=== PATIENT | female | born 1935 | race Caucasian/White ===

== ENCOUNTER 2018-10-21 18:00 | Inpatient (IN) ==
--- NOTE | 2018-10-21 18:19 | Emergency Department Note ---
Disposition Clinical Impression: Iliopsoas abscess on left Disposition: Admitted As Inpatient Condition: Undetermined Referrals: NONE,PCP [Primary Care Provider] - Forms: ED Satisfaction Letter Time of Disposition: 19:40 Lower Extremity Injury HPI - General Chief Complaint: ED Extremity Problem,Nontraumatic Stated Complaint: Groin Pain Time Seen by Provider: 10/21/18 18:06 Source: patient, EMS Mode of arrival: EMS Limitations: no limitations Nursing Notes Reviewed: Yes Vital Signs Reviewed: Yes - History of Present Illness HPI Narrative: 83-year-old female arrives to the emergency department complaining of left groin pain. The patient states she was playing cards and twisted a certain way and felt immediate pain in the left groin. The patient states she had anything like this before. She took 2 Tylenol and a tramadol. The patient states that this has not help. The patient is complaining of left groin pain. She has no hernia in this area. She denies any dysuria. She denies any traumatic injury. The patient is resting comfortably on evaluation in the room. She has no other complaints at this time going numbness, tingling, back pain, abdominal pain. - Related Data Home Medications Medication Instructions Recorded Confirmed Aspirin 81 mg PO DAILY 03/19/17 10/21/18 Proair Hfa 2 puff IH Q4H PRN 03/19/17 10/21/18 Tramadol HCl 50 mg PO BID 03/19/17 10/21/18 Budesonide/Formoterol 80/4.5 2 puff IH BID 10/21/18 10/21/18 [Symbicort 80/4.5] Umeclidinium [place] [Incruse 1 puff IH DAILY 10/21/18 10/21/18 Ellipta] Allergies Allergy/AdvReac Type Severity Reaction Status Date / Time Penicillins [PCN] Allergy Rash Verified 03/19/17 14:00 All systems ED: reviewed and negative except as stated. Constitutional: Denies: fever, chills, weakness ENT ED: Denies: dysphagia Cardiovascular: Denies: chest pain Respiratory: Denies: dyspnea Gastrointestinal: Denies: abdominal pain, nausea, vomiting Genitourinary: Denies: urgency, dysuria, frequency, hematuria Musculoskeletal: Reports: arthralgia. Denies: back pain, neck pain, myalgia Integumentary: Denies: rash Neurological: Denies: headache Past Medical History - Past Medical History Attestation: Yes The following information was validated with the patient. Source: patient, old records reviewed Medical history: Reports: coronary artery disease, diabetes, GERD, hypertension, other Surgical history: Reports: angioplasty/stent, appendectomy, Psychiatric history: Reports: no psych history - Social History Smoking Status: Never smoker Smokeless Tobacco Status: No Alcohol use: Reports: none Drug use: Reports: none Physical Exam - General Limitations: no limitations General appearance: alert, in no apparent distress - Head Head exam: atraumatic, normocephalic, normal inspection - Eye Eye exam: Present: normal appearance, PERRL, EOMI - ENT ENT exam: normal exam, normal oropharynx, mucous membranes moist - Neck Neck exam: Present: normal inspection, full ROM, trachea midline - Chest Chest inspection: Present: normal inspection, symmetric chest wall rise - Respiratory Respiratory exam: Present: normal lung sounds bilaterally - Cardiovascular Cardiovascular exam: Present: regular rate, normal rhythm, normal heart sounds - Abdominal Exam Abdominal exam: Present: soft, Non-Tender. Absent: tenderness, distention, guarding, rebound, rigidity, Cat's sign, Rovsing's sign - Extremities Exam Extremities exam: Present: normal inspection, full ROM, tenderness (Left anterior inguinal region without hernia). Absent: pedal edema - Neurological Exam Neurological exam: Present: alert, oriented X3 - Skin Skin exam: Present: warm, dry, intact, normal color. Absent: erythema Course Vital Signs Temperature 100.5 F H 10/21/18 18:09 Pulse Rate 96 10/21/18 18:09 Respiratory Rate 18 10/21/18 18:09 Blood Pressure 148/70 10/21/18 18:09 O2 Sat by Pulse Oximetry 98 10/21/18 18:09 Temperature 100.2 F H 10/21/18 18:13 Pulse Rate 96 10/21/18 18:09 Respiratory Rate 18 10/21/18 18:09 Blood Pressure 148/70 10/21/18 18:09 O2 Sat by Pulse Oximetry 98 10/21/18 18:09 Oxygen Delivery Oxygen Delivery Room Air Extremity Injury, Lower - MDM Narrative Medical decision making narrative: Patient's workup in the emergency department demonstrates findings concerning for fluid within the left iliopsoas. Given the patient's pain combined with the fever I am concerned about an abscess within the iliopsoas muscle. Labs were obtained at that time including a CRP, ESR. Blood cultures were obtained. The patient was started on meropenem as the patient has an allergy to penicillin and we need to cover anaerobes. I spoke with Dr. Champion in orthopedic surgery who will see the patient in consultation. No further recommendations noted at this time. Patient's pain is well-controlled. The patient will be admitted to the hospitalist at this time. Accepted by Dr. Perry. - Lab Data Lab results reviewed: Yes I reviewed the patient's lab results. Result diagrams: 10/21/18 18:56 Lab Results 10/21/18 10/21/18 10/21/18 Range/Units 18:56 19:04 19:04 WBC 11.8 H (4.3-11.1) K/mcL RBC 3.74 L (3.82-4.97) M/mcL Hgb 11.4 L (11.5-15.4) g/dL Hct 35.6 (35.3-44.9) % MCV 95.2 (83.0-100.0) fL MCH 30.5 (28.0-33.3) pg MCHC 32.0 (31.6-35.5) g/dL RDW 14.3 (11.5-14.5) % Plt Count 214 (140-400) K/mcL MPV 9.2 L (9.4-12.4) fL Immature Gran % 0.4 (0-4) % Seg Neutrophils % 73.1 % Lymphocytes % 13.2 % Monocytes % 10.9 % Eosinophils % 2.0 % Basophils % 0.4 % Neutrophils # 8.6 (1.6-8.9) K/mcL Lymphocytes # 1.6 (0.6-4.6) K/mcL Monocytes # 1.3 (0.0-1.3) K/mcL Eosinophils # 0.2 (0.0-0.6) K/mcL Basophils # 0.1 (0.0-0.2) K/mcL ESR 59 H (0-15) mm/hr PT 12.5 H (9.4-12.1) Seconds INR 1.1 Lactic Acid (0.5-2.2) mmol/L 10/21/18 Range/Units 19:04 WBC (4.3-11.1) K/mcL RBC (3.82-4.97) M/mcL Hgb (11.5-15.4) g/dL Hct (35.3-44.9) % MCV (83.0-100.0) fL MCH (28.0-33.3) pg MCHC (31.6-35.5) g/dL RDW (11.5-14.5) % Plt Count (140-400) K/mcL MPV (9.4-12.4) fL Immature Gran % (0-4) % Seg Neutrophils % % Lymphocytes % % Monocytes % % Eosinophils % % Basophils % % Neutrophils # (1.6-8.9) K/mcL Lymphocytes # (0.6-4.6) K/mcL Monocytes # (0.0-1.3) K/mcL Eosinophils # (0.0-0.6) K/mcL Basophils # (0.0-0.2) K/mcL ESR (0-15) mm/hr PT (9.4-12.1) Seconds INR Lactic Acid 1.0 (0.5-2.2) mmol/L - Radiology Data Radiology results reviewed: Yes I reviewed the patient's radiology results. Hip X-Ray 10/21/18 18:10 IMPRESSION: 1. Sclerosis across the left femoral neck. Differential includes subacute fracture or stress fracture or intra-articular loose bodies. Recommend MR for further evaluation. D/ / 10/21/2018 18:36:54 Aj Seay MD / dee Interpreting Provider: Aj Seay MD Abdomen/Pelvis CT 10/21/18 18:19 IMPRESSION: 1. Fluid in the left iliopsoas muscle. Differential includes iliopsoas bursitis and/or hematoma, if patient has had recent trauma. 2. Bilateral hip capsular calcifications, left greater than right. Differential includes sequela of capsulitis and manifestation of calcium deposition disease, including hydroxyapatite deposition disease and CPPD. 3. No CT evidence of left hip fracture. If patient's pain persists or worsens, consider MR for further evaluation. 4. Cholelithiasis. No CT evidence of cholecystitis. 5. Moderate hiatal hernia. D/ / 10/21/2018 18:49:58 Aj Seay MD / dee Interpreting Provider: Aj Seay MD - EKG Data EKG attestation: Yes I reviewed and interpreted this EKG. EKG results narrative: Heart rate 80 beats for minute. Normal sinus rhythm. No ST elevation or ST depression. No other acute changes noted.
[2018-10-21 19:20] LABS: Basophils # 0.1 K/mcL (0.0-0.2); Basophils % 0.4 %; Eosinophils # 0.2 K/mcL (0.0-0.6); Hematocrit 35.6 % (35.3-44.9); Hemoglobin 11.4 g/dL (11.5-15.4); Immature Granulocytes % 0.4 % (0-4); Lymphocytes # 1.6 K/mcL (0.6-4.6); Lymphocytes % 13.2 %; Mean Corpuscular Hemoglobin 30.5 pg (28.0-33.3); Mean Corpuscular Volume 95.2 fL (83.0-100.0); Mean Platelet Volume 9.2 fL (9.4-12.4); Monocytes # 1.3 K/mcL (0.0-1.3); Monocytes % 10.9 %; Neutrophils # 8.6 K/mcL (1.6-8.9); Platelet Count 214 K/mcL (140-400); Red Blood Count 3.74 M/mcL (3.82-4.97); Red Cell Distribution Width 14.3 % (11.5-14.5); Segmented Neutrophils % 73.1 %
[2018-10-21] MEDS ORDERED: *HR* Morphine 2 MG/ML SYRINGE IVP ONE (19:20)
[2018-10-21] MEDS ORDERED: Meropenem 1,000 MG in Water for inj. (sterile) 20 ML 10 ML IVP STA (19:26)
[2018-10-21 19:34] LABS: INR 1.1; Prothrombin Time 12.5 Seconds (9.4-12.1)
[2018-10-21 19:36] LABS: Activated Partial Thrombo Time 34.9 Seconds (26.0-36.0)
[2018-10-21 19:40] LABS: BUN/Creatinine Ratio 25 (6-26); Blood Urea Nitrogen 21 mg/dL (8-23); Calcium 9.4 mg/dL (8.6-10.3); Carbon Dioxide 27 mEq/L (23-29); Chloride 100 mEq/L (98-107); Glucose 124 mg/dL (70-105); Osmolality,Calculated 284 (280-300); Potassium 3.9 mEq/L (3.5-5.1); Sodium 135 mEq/L (136-145); eGFR For Non-African Americans > 60 (> 60)
--- NOTE | 2018-10-21 19:40 | Emergency Department Note ---
Disposition Clinical Impression: Iliopsoas abscess on left Disposition: Admitted As Inpatient Condition: Good Referrals: NONE,PCP [Primary Care Provider] - Forms: ED Satisfaction Letter General Adult HPI - General Chief complaint: ED Extremity Problem,Nontraumatic Stated complaint: Groin Pain Time Seen by Provider: 10/21/18 18:06 Source: patient, EMS Mode of arrival: EMS Limitations: no limitations - History of Present Illness Pain Scale: 10 - Related Data Home Medications Medication Instructions Recorded Confirmed Aspirin 81 mg PO DAILY 03/19/17 10/21/18 Proair Hfa 2 puff IH Q4H PRN 03/19/17 10/21/18 Tramadol HCl 50 mg PO BID 03/19/17 10/21/18 Budesonide/Formoterol 80/4.5 2 puff IH BID 10/21/18 10/21/18 [Symbicort 80/4.5] Umeclidinium [place] [Incruse 1 puff IH DAILY 10/21/18 10/21/18 Ellipta] Allergies Allergy/AdvReac Type Severity Reaction Status Date / Time Penicillins [PCN] Allergy Rash Verified 03/19/17 14:00 Constitutional: Denies: fever, chills, weakness ENT ED: Denies: dysphagia Cardiovascular: Denies: chest pain Respiratory: Denies: dyspnea Gastrointestinal: Denies: abdominal pain, nausea, vomiting Genitourinary: Denies: urgency, dysuria, frequency, hematuria Musculoskeletal: Reports: arthralgia. Denies: back pain, neck pain, myalgia Integumentary: Denies: rash Neurological: Denies: headache Past Medical History - Past Medical History Medical history: Reports: coronary artery disease, diabetes, GERD, hypertension, other Surgical history: Reports: angioplasty/stent, appendectomy, Psychiatric history: Reports: no psych history - Social History Smoking Status: Never smoker Smokeless Tobacco Status: No Alcohol use: Reports: none Drug use: Reports: none Physical Exam - General Limitations: no limitations General appearance: alert, in no apparent distress Course Vital Signs Temperature 100.5 F H 10/21/18 18:09 Pulse Rate 96 10/21/18 18:09 Respiratory Rate 18 10/21/18 18:09 Blood Pressure 148/70 10/21/18 18:09 O2 Sat by Pulse Oximetry 98 10/21/18 18:09 Temperature 100.2 F H 03/27/19 18:13 Pulse Rate 96 10/21/18 18:09 Respiratory Rate 18 10/21/18 18:09 Blood Pressure 148/70 10/21/18 18:09 O2 Sat by Pulse Oximetry 98 10/21/18 18:09 Oxygen Delivery Oxygen Delivery Room Air Medical Decision Making - Lab Data Result diagrams: 10/21/18 18:56 Lab Results 10/21/18 10/21/18 10/21/18 Range/Units 18:56 19:04 19:04 WBC 11.8 H (4.3-11.1) K/mcL RBC 3.74 L (3.82-4.97) M/mcL Hgb 11.4 L (11.5-15.4) g/dL Hct 35.6 (35.3-44.9) % MCV 95.2 (83.0-100.0) fL MCH 30.5 (28.0-33.3) pg MCHC 32.0 (31.6-35.5) g/dL RDW 14.3 (11.5-14.5) % Plt Count 214 (140-400) K/mcL MPV 9.2 L (9.4-12.4) fL Immature Gran % 0.4 (0-4) % Seg Neutrophils % 73.1 % Lymphocytes % 13.2 % Monocytes % 10.9 % Eosinophils % 2.0 % Basophils % 0.4 % Neutrophils # 8.6 (1.6-8.9) K/mcL Lymphocytes # 1.6 (0.6-4.6) K/mcL Monocytes # 1.3 (0.0-1.3) K/mcL Eosinophils # 0.2 (0.0-0.6) K/mcL Basophils # 0.1 (0.0-0.2) K/mcL ESR 59 H (0-15) mm/hr PT 12.5 H (9.4-12.1) Seconds INR 1.1 Lactic Acid (0.5-2.2) mmol/L 10/21/18 Range/Units 19:04 WBC (4.3-11.1) K/mcL RBC (3.82-4.97) M/mcL Hgb (11.5-15.4) g/dL Hct (35.3-44.9) % MCV (83.0-100.0) fL MCH (28.0-33.3) pg MCHC (31.6-35.5) g/dL RDW (11.5-14.5) % Plt Count (140-400) K/mcL MPV (9.4-12.4) fL Immature Gran % (0-4) % Seg Neutrophils % % Lymphocytes % % Monocytes % % Eosinophils % % Basophils % % Neutrophils # (1.6-8.9) K/mcL Lymphocytes # (0.6-4.6) K/mcL Monocytes # (0.0-1.3) K/mcL Eosinophils # (0.0-0.6) K/mcL Basophils # (0.0-0.2) K/mcL ESR (0-15) mm/hr PT (9.4-12.1) Seconds INR Lactic Acid 1.0 (0.5-2.2) mmol/L Attestation Statement - Attestation Attestation: I examined this patient and my medical decision-making was reviewed with the Resident Physician. I agree with the documented findings, disposition and treatment plan as described except to the extent set forth below. 83 year old fmale presnts to the eD with complaints of left groin pain and mets SIRS criteria and upon inspection of the ABCT she has a fluid collection in the left liliopsoas muscle and elevated ESR. she is on a ASA without other blood thinners. Patinet is pain with range of motion. Ortho has been consulted and has agreed to see in consult. admitted to medicine.
[2018-10-21 19:41] LABS: C-Reactive Protein 13 mg/L (Less than 10)
[2018-10-21 19:42] LABS: Troponin I < 0.03 ng/mL (< 0.04)
[2018-10-21] MEDS ORDERED: Naloxone 0.4 MG/ML INJ IVP PRN ×2 (20:12→21:21)
--- NOTE | 2018-10-21 20:31 | Internal Med History&Physical ---
Date of Encounter: 10/21/18 Time of Encounter: 20:31 Internal Medicine - H&P: HPI Chief complaint: Left-sided groin pain History of present illness: Ms. Frederick is a 83 year old female with a past medical history of fibromyalgia, arthritis, hypertension, COPD non-O2 dependent and hyperlipidemia who presented to the ED after acute onset left lower groin pain. Patient states that she was in her usual state of health. She was playing cards this afternoon with friends and states that when she went to get up she felt a sudden sharp pain in her left growing, 8 out of 10 in intensity, radiating to her left knee. Pain was aggravated with left hip flexion and ambulation. Relieved with rest. Patient states that she has required help with getting out of her vehicle today after the incident. Patient denies any recent trauma. No recent illness. No reports of nausea, vomiting or diarrhea. She does report chills since the incident this afternoon. On arrival she was noted to be febrile with a temperature of 100.5. Heart rate 96 and otherwise hemodynamically stable satting at 98% on room air. Laboratory workup notable for a mild leukocytosis of 11.8. ESR was elevated at 59. The remainder of her laboratory workup was unremarkable including a normal lactic acid. CT of the abdomen/pelvis without contrast showed fluid in the left iliopsoas muscle concerning for iliopsoas bursitis versus hematoma. On my assessment patient was lying in bed in no acute distress though displaying some left lower discomfort now improved after receiving morphine. No peritoneal signs on abdominal examination. Patient was started on meropenem in the setting of a history of penicillin allergy. Past Med Surg Social Fam HX - Past Medical History Medical history: coronary artery disease, diabetes, GERD, hypertension, other Additional medical history: osteopenia Psychiatric history: no psych history - Past Surgical History Surgical History: angioplasty/stent, appendectomy, Additional surgical history: tubal - Social History Smoking Status: Never smoker Smokeless Tobacco Status: No Alcohol use: none Drug use: none Internal Medicine - H&P: Meds Albuterol Sulfate [Albuterol Inhaler] 2 puff IH Q4H PRN 10/21/18 [History] Aspirin [Lo-Dose Aspirin EC] 81 mg PO DAILY 10/21/18 [History] Atorvastatin [Lipitor] 10 mg PO DAILY 10/21/18 [History] Budesonide/Formoterol 80/4.5 [Symbicort 80/4.5] 2 puff IH BID 10/21/18 [History] Calcium Carbonate/Vitamin D3 [Caltrate 600 + D Soft Chew Tab] 1 each PO BID 10/21/18 [History] Cetirizine HCl [Zyrtec] 10 mg PO DAILY 10/21/18 [History] Citalopram Hydrobromide [Citalopram HBr] 20 mg PO DAILY 10/21/18 [History] Gabapentin 1,200 mg PO HS 10/21/18 [History] Lisinopril-HCTZ 10-12.5 [Prinzide 10-12.5] 1 tab PO DAILY 10/21/18 [History] Omeprazole [PriLOSEC] 20 mg PO DAILY 10/21/18 [History] Tramadol HCl [Ultram] 50 mg PO BID PRN 10/21/18 [History] Umeclidinium [place] [Incruse Ellipta] 1 puff IH DAILY 10/21/18 [History] Allergy/AdvReac Type Severity Reaction Status Date / Time Penicillins [PCN] Allergy Rash Verified 03/19/17 14:00 All Systems PM: A 10-system review of systems was performed and is negative for pertinent findings except as documented above in the HPI. - Constitutional Constitutional: no chills, no fever(s), no night sweats - EENT Eyes: no change in vision, no discharge, no pain, no photophobia Ears: no ear discharge, no ear pain, no tinnitus Nose, mouth and throat: no dysphagia, no nasal discharge, no neck pain, no sore throat - Cardiovascular Cardiovascular ROS IM: no chest pain, no diaphoresis, no dyspnea, no lightheadedness, no palpitations, no syncope - Respiratory Respiratory: no cough, no dyspnea, no wheezing, no excessive phlegm production - Gastrointestinal Gastrointestinal: no abdominal pain, no diarrhea, no hematemesis, no hematochezia, no melena, no nausea, no vomiting - Genitourinary Genitourinary: no change in urinary stream, no dysuria, no flank pain, no hematuria - Musculoskeletal Musculoskeletal ROS IM: no numbness, no tingling - Integumentary Integumentary IM: no rash, no unusual bruising - Neurological Neurological ROS: no confusion, no convulsions, no focal weakness, no numbness, no tingling, no tremor(s) - Hematologic/Lymphatic Hematologic/Lymphatic: no easy bruising - Constitutional Vitals: Temp Pulse Resp BP Pulse Ox 100.2 F H 85 18 144/77 98 10/21/18 18:13 10/21/18 19:51 10/21/18 19:51 10/21/18 19:51 10/21/18 19:51 Exam: General: Alert and oriented 3 lying in bed in no acute distress Skin:Normal color, no rash, no lesions. HEENT:EOM, pupils equal, round and reactive. Cardiovascular:Normal S1 & S2, no rubs, murmurs or gallops. No JVD. Pulse regular. Lungs: Diminished breath sounds, no wheezes or crackles. Abdomen:Soft, with mild tenderness to palpation of the left groin region. Extremities:No deformity, no edema or tenderness, no joint swelling or clubbing. Neurological:Normal cognition and motor skills. Pulses:Carotid and radial pulses normal +2. Rest of the physical exam is non contributory Internal Med - H&P Results - Labs CBC & Chem 7: 10/22/18 05:20 10/22/18 05:20 Labs: Short CBC 10/21/18 Range/Units 18:56 WBC 11.8 H (4.3-11.1) K/mcL Hgb 11.4 L (11.5-15.4) g/dL Hct 35.6 (35.3-44.9) % Plt Count 214 (140-400) K/mcL Neutrophils # 8.6 (1.6-8.9) K/mcL BMP 10/21/18 18:56 Sodium 135 L Potassium 3.9 Chloride 100 Carbon Dioxide 27 BUN 21 Creatinine 0.84 Glucose 124 H Calcium 9.4 Cardiac Enzymes 10/21/18 Range/Units 19:04 Troponin I < 0.03 (< 0.04) ng/mL - Impressions ITS Impressions Hip X-Ray 10/21/18 18:10 IMPRESSION: 1. Sclerosis across the left femoral neck. Differential includes subacute fracture or stress fracture or intra-articular loose bodies. Recommend MR for further evaluation. D/ / 10/21/2018 18:36:54 Aj Seay MD / dee Interpreting Provider: Aj Seay MD Abdomen/Pelvis CT 10/21/18 18:19 IMPRESSION: 1. Fluid in the left iliopsoas muscle. Differential includes iliopsoas bursitis and/or hematoma, if patient has had recent trauma. 2. Bilateral hip capsular calcifications, left greater than right. Differential includes sequela of capsulitis and manifestation of calcium deposition disease, including hydroxyapatite deposition disease and CPPD. 3. No CT evidence of left hip fracture. If patient's pain persists or worsens, consider MR for further evaluation. 4. Cholelithiasis. No CT evidence of cholecystitis. 5. Moderate hiatal hernia. D/ / 10/21/2018 18:49:58 Aj Seay MD / dee Interpreting Provider: Aj Seay MD - Assessment and Plan (1) Left groin pain Current Visit: Yes Status: Acute Assessment and plan: Patient presents with acute onset left groin pain with findings of fluid collection in the left iliopsoas muscle concerning for bursitis versus hematoma. At this time given the acuity of her symptoms and presentation in the absence of any preceding symptoms, I have low suspicion for an infectious etiology; suspect possible hematoma despite no reports of trauma, though patient is on a low-dose aspirin. Patient's hemoglobin appears to be at baseline. -Continue with fluids -Pain control -We will continue with antibiotics for now and discontinue if blood cultures are negative. -Patient will likely need interventional radiology consult for possible aspiration of fluid collection. We will keep patient nothing by mouth after midnight. Holding aspirin. (2) Sepsis Current Visit: Yes Status: Acute Assessment and plan: Possible sepsis with nearly 3/4 SIRS criteria. However, low suspicion for infectious etiology. Patient currently hemodynamically stable. -Patient we placed on maintenance fluids -Continue with antibiotics for now and follow-up blood cultures. Qualifiers: Sepsis type: sepsis due to unspecified organism Qualified Code(s): A41.9 - Sepsis, unspecified organism (3) COPD (chronic obstructive pulmonary disease) Current Visit: Yes Status: Acute Assessment and plan: History of COPD not on home oxygen. No evidence of an acute exacerbation -Continue with home inhalers Qualifiers: Emphysema type: unspecified Qualified Code(s): J43.9 - Emphysema, unspecified (4) Hypertension Current Visit: Yes Status: Acute Assessment and plan: Blood pressure stable. Continue with home antihypertensive medications. Qualifiers: Hypertension type: essential hypertension Qualified Code(s): I10 - Essential (primary) hypertension (5) Fibromyalgia Current Visit: Yes Status: Acute Assessment and plan: Continue with pain control (6) DVT prophylaxis Current Visit: Yes Status: Acute Assessment and plan: Intermittent pneumatic compression devices - Time Spent With Patient Total time spent is greater than 50% in coordination of care (as documented) at patient's floor/unit and/or counseling patient:
[2018-10-21 20:51] LABS: Bilirubin,Urine Negative (Negative); Blood,Urine Negative (Negative); Clarity,Urine Clear (Clear); Color,Urine Yellow (Yellow); Glucose,Urine (UA) Normal (Normal); Ketones,Urine Negative (Negative); Leukocyte Esterase,Urine Large (Negative); Nitrite,Urine Negative (Negative); Protein,Urine Negative (Neg-Trace); Specific Gravity,Urine 1.021 (1.010-1.025); Urobilinogen,Urine Normal (Normal)
[2018-10-21 20:54] LABS: Bacteria,Urine None Seen per hpf (None-Few); Hyaline Casts,Urine Few per lpf (None-Few); RBC,Urine 0-3 per hpf (0-3); Squamous Epithelial Cell,Urine Many per lpf (None-Few); WBC,Urine 15-30 per hpf (0-3)
[2018-10-21] MEDS ORDERED: traMADol 50 MG TABLET PO PRN (21:19)
[2018-10-21] MEDS: 0.9 % Sodium Chloride 1,000 ML IVC SCH (23:10)
[2018-10-21] MEDS: traMADol 50 MG TABLET PO PRN (23:13)
[2018-10-22] MEDS: *HR* OxyCODONE Immed Rel 5 MG TABLET PO PRN ×2 (00:35→09:32)
[2018-10-22] MEDS ORDERED: Ketorolac 15 MG/ML VIAL IVP ONE (02:31)
[2018-10-22 05:49] LABS: Basophils # 0.1 K/mcL (0.0-0.2); Basophils % 0.6 %; Eosinophils # 0.3 K/mcL (0.0-0.6); Eosinophils % 3.2 %; Hematocrit 33.6 % (35.3-44.9); Hemoglobin 10.7 g/dL (11.5-15.4); Immature Granulocytes % 0.3 % (0-4); Lymphocytes # 1.9 K/mcL (0.6-4.6); Lymphocytes % 24.6 %; Mean Corpuscular HGB Conc 31.8 g/dL (31.6-35.5); Mean Corpuscular Hemoglobin 30.3 pg (28.0-33.3); Mean Corpuscular Volume 95.2 fL (83.0-100.0); Mean Platelet Volume 9.3 fL (9.4-12.4); Monocytes # 1.2 K/mcL (0.0-1.3); Neutrophils # 4.3 K/mcL (1.6-8.9); Platelet Count 199 K/mcL (140-400); Red Blood Count 3.53 M/mcL (3.82-4.97); Red Cell Distribution Width 14.4 % (11.5-14.5); Segmented Neutrophils % 56.3 %
[2018-10-22 05:54] LABS: INR 1.2; Prothrombin Time 13.7 Seconds (9.4-12.1)
[2018-10-22 05:57] LABS: Activated Partial Thrombo Time 36.1 Seconds (26.0-36.0)
[2018-10-22 06:06] LABS: BUN/Creatinine Ratio 22 (6-26); Blood Urea Nitrogen 19 mg/dL (8-23); Calcium 9.3 mg/dL (8.6-10.3); Carbon Dioxide 29 mEq/L (23-29); Chloride 101 mEq/L (98-107); Glucose 114 mg/dL (70-105); Osmolality,Calculated 287 (280-300); Potassium 3.9 mEq/L (3.5-5.1); Sodium 137 mEq/L (136-145); eGFR For Non-African Americans > 60 (> 60)
[2018-10-22] MEDS: Budesonide/Formoterol 80/4.5 MDI IH SCH ×2 (07:39→19:57)
--- NOTE | 2018-10-22 08:55 | Orthopedic Consult Note ---
Date of Encounter: 10/22/18 Time of Encounter: 09:20 Assessment and Plan (1) Left groin pain Current Visit: Yes Status: Acute History of Present Illness Chief complaint: left groin pain HPI: Ms. Frederick is a 83 year old female presenting to [facility] after a sudden inability to walk secondary to left groin pain. She states she was playing cards with friends on 10/20 and started to rise to standing from sitting and had a sudden sharp pain to the left groin. She states she then was unable to stand secondary to pain. She admits to constant pain to the left groin since as well as anterior thigh and left anterior knee pain. She states she has had mild improvement in pain with pain medication here at the hospital and was able to get to bedside commode with assistance with somewhat tolerable pain. She admits to history of back surgery - denies hardware placement. Admits to abdominal x 1 in remote past. Admits to history of diverticulitis. Denies recent history of UTI or urinary issues, fracture, or trauma/fall. She denies ever having had this type of problem in the past. On exam patient resting comfortably in bed supine. Patient's two daughters and best friend/partner at bedside. No acute distress. Alert and oriented x 3. No gross deformity noted to abdomen, pelvis, or lower extremities on visual inspection. Exquisite tenderness to palpation along the left groin and at left aspect of pubic symphsis. No rebound tenderness noted. No abdominal tenderness noted to palpation. Tender to palpation along anterior thigh and quad musculature as well as anterior knee to the patella. Mild left knee soft tissue swelling noted. No calf tenderness bilaterally. Right hip, knee unremarkable on exam. Motion to left knee full. Left hip motion elicits significant pain whether active or passive. Patient states groin and thigh pain is unbearable with motion. Neurovascularly and sensation intact to b/l LE. CT/CT abd pelvis wo no iv no oral IMPRESSION: 1. Fluid in the left iliopsoas muscle. Differential includes iliopsoas bursitis and/or hematoma, if patient has had recent trauma. 2. Bilateral hip capsular calcifications, left greater than right. Differential includes sequela of capsulitis and manifestation of calcium deposition disease, including hydroxyapatite deposition disease and CPPD. 3. No CT evidence of left hip fracture. If patient's pain persists or worsens, consider for further evaluation. 4. Cholelithiasis. No CT evidence of cholecystitis. 5. Moderate hiatal hernia. D/ / 10/21/2018 18:49:58 Aj Seay MD / dee Assessment: left groin pain Plan Discussed with Dr. Champion Given significant groin pain dramatically worsened with hip motion concern for occult fracture Patient also was febrile upon appearance- primary team working up re: infection concerns. Patient denies any recent illness to this provider. Continue NPO in case of IR need for evaluation of fluid collection - will get MRI and if no larry abnormality able to be detected, will defer to IR evaluation. Will order labs if IR to proceed. Recommend continued analgesia and ice application as needed per hospitalist discretion regarding pain Encourage limited hip motion until MRI evaluation MRI ordered - awaiting results Thank you for this consultation. Past Med Surg Social Fam HX - Past Medical History Medical history: coronary artery disease, GERD, hypertension, other Additional medical history: osteopenia, 5 heart stents Psychiatric history: no psych history - Past Surgical History Surgical History: angioplasty/stent, appendectomy, Additional surgical history: tubal - Social History Smoking Status: Never smoker Smokeless Tobacco Status: No Alcohol use: none Drug use: none Medications and Allergies Albuterol Sulfate [Albuterol Inhaler] 2 puff IH Q4H PRN 10/21/18 [History] Aspirin [Lo-Dose Aspirin EC] 81 mg PO DAILY 10/21/18 [History] Atorvastatin [Lipitor] 10 mg PO DAILY 10/21/18 [History] Budesonide/Formoterol 80/4.5 [Symbicort 80/4.5] 2 puff IH BID 10/21/18 [History] Calcium Carbonate/Vitamin D3 [Caltrate 600 + D Soft Chew Tab] 1 each PO BID 10/21/18 [History] Cetirizine HCl [Zyrtec] 10 mg PO DAILY 10/21/18 [History] Citalopram Hydrobromide [Citalopram HBr] 20 mg PO DAILY 10/21/18 [History] Gabapentin 1,200 mg PO HS 10/21/18 [History] Lisinopril-HCTZ 10-12.5 [Prinzide 10-12.5] 1 tab PO DAILY 10/21/18 [History] Omeprazole [PriLOSEC] 20 mg PO DAILY 10/21/18 [History] Tramadol HCl [Ultram] 50 mg PO BID PRN 10/21/18 [History] Umeclidinium [place] [Incruse Ellipta] 1 puff IH DAILY 10/21/18 [History] Allergy/AdvReac Type Severity Reaction Status Date / Time Penicillins [PCN] Allergy Rash Verified 03/19/17 14:00 All Systems Reviewed: The remainder of the systems were reviewed and are negative Physical Exam - Constitutional Vitals: Temp Pulse Resp BP Pulse Ox 98.2 F 71 17 129/72 95 10/22/18 07:52 10/22/18 07:52 10/22/18 07:52 10/22/18 07:52 10/22/18 07:52 Results - Labs Result Diagrams: 10/22/18 05:20 10/22/18 05:20 Labs: Abnormal lab results RBC 3.53 M/mcL (3.82-4.97) L 10/22/18 05:20 Hgb 10.7 g/dL (11.5-15.4) L 10/22/18 05:20 Hct 33.6 % (35.3-44.9) L 10/22/18 05:20 MPV 9.3 fL (9.4-12.4) L 10/22/18 05:20 ESR 59 mm/hr (0-15) H 10/21/18 19:04 PT 13.7 Seconds (9.4-12.1) H 10/22/18 05:20 APTT 36.1 Seconds (26.0-36.0) H 10/22/18 05:20 Glucose 114 mg/dL (70-105) H 10/22/18 05:20 C-Reactive Protein 13 mg/L (Less than 10) H 10/21/18 19:04 Ur Leukocyte Esterase Large (Negative) H 10/21/18 20:38 Urine Microscopic WBC 15-30 per hpf (0-3) H 10/21/18 20:38 Ur Squamous Epith Cells Many per lpf (None-Few) H 10/21/18 20:38 Ur Culture Indicated? NO. (NO) A 10/21/18 20:38 H & H 10/21/18 10/22/18 Range/Units 18:56 05:20 Hgb 11.4 L 10.7 L (11.5-15.4) g/dL Hct 35.6 33.6 L (35.3-44.9) % All other labs normal. Consult Discharge Plan - Plan Referrals: Lillian Andrade, [Primary Care Provider] -
[2018-10-22] MEDS ORDERED: Meropenem 1,000 MG in 0.9 % Sodium Chloride Mini Bag 100 ML IVPB SCH (09:00)
[2018-10-22] MEDS: Loratadine 10 MG TABLET PO SCH (09:32)
[2018-10-22] MEDS ORDERED: (Incruse Ellipta] 1 PUFF) IH SCH ×2 (10:00)
[2018-10-22] MEDS: traMADol 50 MG TABLET PO PRN (14:15)
[2018-10-22] MEDS: 0.9 % Sodium Chloride 1,000 ML IVC SCH (14:19)
[2018-10-22] MEDS: Ketorolac 15 MG/ML VIAL IVP PRN ×2 (15:37→21:44)
--- NOTE | 2018-10-22 16:35 | Internal Med Progress Note ---
Hospitalist Progress Note - Encounter Date of Encounter: 10/22/18 Time of Encounter: 09:00 - Subjective Interval History: Pt still c/o left groin pain with limited ROM of movement of left hips and left knee. Pt has no further fever. Denies dysuria/burning/discomfort for urination. - Exam Vitals: Temp Pulse Resp BP Pulse Ox 98.5 F 66 17 126/71 93 10/22/18 12:33 10/22/18 12:33 10/22/18 12:33 10/22/18 12:33 10/22/18 12:33 Exam: Pt is AAO x 3, in NAD HEENT: NC/AT, PERRL Neck: Supple, no JVD, no LAD Lungs: CTA b/l Heart: S1S2, RRR Abd: Soft, nontender, BS present Ext: Left hip and knee limited ROM due to pain, no joint swelling. no pedal edema. Neuro: No focal deficit - Assessment and Plan (1) Left groin pain Current Visit: Yes Status: Acute Assessment and Plan: Patient presents with acute onset left groin pain with findings of fluid collection in the left iliopsoas muscle concerning for bursitis versus hematoma. IR aspiration done. Likely abscess. Lab sent, result pending. -Continue Pain control - Pt received meropenem in the emergency room. Continue with antibiotics for now with cipro and flagyl, waiting for culture result of blood and aspiration fluid. - Orthopedic consult appreciated. MRI to rule out occult fracture. (2) Sepsis Current Visit: Yes Status: Acute Assessment and Plan: Possible sepsis with nearly 3/4 SIRS criteria. Patient currently hemodynamically stable. -Patient we placed on maintenance fluids -Continue with antibiotics for now and follow-up blood cultures. (3) COPD (chronic obstructive pulmonary disease) Current Visit: Yes Status: Acute Assessment and Plan: History of COPD not on home oxygen. No evidence of an acute exacerbation -Continue with home inhalers (4) Hypertension Current Visit: Yes Status: Acute Assessment and Plan: Blood pressure stable. Continue with home antihypertensive medications. (5) DVT prophylaxis Current Visit: Yes Status: Acute Assessment and Plan: Intermittent pneumatic compression devices (6) Fibromyalgia Current Visit: Yes Status: Acute Assessment and Plan: Continue with pain control - Time Spent with Patient Total time spent is greater than 50% in coordination of care (as documented) at patient's floor/unit and/or counseling patient: 30 minutes 25 - 35 minutes Plan of Care Discussed with: patient Internal Medicine: Result - Labs CBC & Chem 7: 10/22/18 05:20 10/22/18 05:20 Labs: Short CBC 10/21/18 10/22/18 Range/Units 18:56 05:20 WBC 11.8 H 7.7 (4.3-11.1) K/mcL Hgb 11.4 L 10.7 L (11.5-15.4) g/dL Hct 35.6 33.6 L (35.3-44.9) % Plt Count 214 199 (140-400) K/mcL Neutrophils # 8.6 4.3 (1.6-8.9) K/mcL BMP 10/21/18 10/22/18 18:56 05:20 Sodium 135 L 137 Potassium 3.9 3.9 Chloride 100 101 Carbon Dioxide 27 29 BUN 21 19 Creatinine 0.84 0.87 Glucose 124 H 114 H Calcium 9.4 9.3 Cardiac Enzymes 10/21/18 Range/Units 19:04 Troponin I < 0.03 (< 0.04) ng/mL Urine 10/21/18 Range/Units 20:38 Urine Color Yellow (Yellow) Urine Clarity Clear (Clear) Urine pH 5.0 (5.0-8.0) pH Units Ur Specific [place] 1.021 (1.010-1.025) Urine Protein Negative (Neg-Trace) mg/dL Urine Glucose (UA) Normal (Normal) mg/dL - ABG Interpretation ABG results: PT/INR, D-dimer PT 13.7 Seconds (9.4-12.1) H 10/22/18 05:20 - Impressions Impressions Hip X-Ray 10/21/18 18:10 IMPRESSION: 1. Sclerosis across the left femoral neck. Differential includes subacute fracture or stress fracture or intra-articular loose bodies. Recommend MR for further evaluation. D/ / 10/21/2018 18:36:54 Aj Seay MD / dee Interpreting Provider: Aj Seay MD Abdomen/Pelvis CT 10/21/18 18:19 IMPRESSION: 1. Fluid in the left iliopsoas muscle. Differential includes iliopsoas bursitis and/or hematoma, if patient has had recent trauma. 2. Bilateral hip capsular calcifications, left greater than right. Differential includes sequela of capsulitis and manifestation of calcium deposition disease, including hydroxyapatite deposition disease and CPPD. 3. No CT evidence of left hip fracture. If patient's pain persists or worsens, consider MR for further evaluation. 4. Cholelithiasis. No CT evidence of cholecystitis. 5. Moderate hiatal hernia. D/ / 10/21/2018 18:49:58 Aj Seay MD / dee Interpreting Provider: Aj Seay MD Needle Aspiration CT 10/22/18 00:00 IMPRESSION: Successful CT guided placement of left groin abscess drainage catheter. D/ / Jose Bellamy MD / Jose Bellamy MD Interpreting Provider: Jose Bellamy MD Consult Discharge Plan - Plan Referrals: Lillian Andrade DO [Primary Care Provider] -
[2018-10-22] MEDS: MetroNIDAZOLE 500 MG/100 ML 500 MG/100 ML BAG IVPB SCH (17:49)
[2018-10-22 18:20] LABS: Appearance of Body Fluid Hazy (Clear); Volume of Body Fluid 10 mL
[2018-10-22] MEDS: Gabapentin 400 MG CAPSULE PO SCH (20:47)
[2018-10-23] MEDS: MetroNIDAZOLE 500 MG/100 ML 500 MG/100 ML BAG IVPB SCH ×3 (02:13→17:27)
[2018-10-23] MEDS: Ketorolac 15 MG/ML VIAL IVP PRN ×3 (04:39→17:31)
[2018-10-23 05:59] LABS: Basophils % 0.3 %; Eosinophils # 0.3 K/mcL (0.0-0.6); Eosinophils % 4.6 %; Hematocrit 31.8 % (35.3-44.9); Hemoglobin 10.3 g/dL (11.5-15.4); Immature Granulocytes % 0.3 % (0-4); Lymphocytes # 1.5 K/mcL (0.6-4.6); Lymphocytes % 20.9 %; Mean Corpuscular HGB Conc 32.4 g/dL (31.6-35.5); Mean Corpuscular Hemoglobin 30.7 pg (28.0-33.3); Mean Corpuscular Volume 94.9 fL (83.0-100.0); Mean Platelet Volume 9.3 fL (9.4-12.4); Monocytes % 14.1 %; Neutrophils # 4.2 K/mcL (1.6-8.9); Platelet Count 191 K/mcL (140-400); Red Blood Count 3.35 M/mcL (3.82-4.97); Red Cell Distribution Width 14.4 % (11.5-14.5); Segmented Neutrophils % 59.8 %
[2018-10-23 06:14] LABS: BUN/Creatinine Ratio 17 (6-26); Blood Urea Nitrogen 14 mg/dL (8-23); Calcium 8.8 mg/dL (8.6-10.3); Carbon Dioxide 27 mEq/L (23-29); Chloride 106 mEq/L (98-107); Glucose 117 mg/dL (70-105); Osmolality,Calculated 290 (280-300); Potassium 3.7 mEq/L (3.5-5.1); Sodium 139 mEq/L (136-145); eGFR For Non-African Americans > 60 (> 60)
[2018-10-23] MEDS: Budesonide/Formoterol 80/4.5 MDI IH SCH ×2 (07:44→22:30)
[2018-10-23] MEDS: Tiotropium 18 MCG inhalation IH SCH (07:45)
--- NOTE | 2018-10-23 08:26 | Orthopedics Progress Note ---
Date of Encounter: 10/23/18 Time of Encounter: 14:45 - Assessment and Plan (1) Left groin pain Current Visit: Yes Status: Resolved (2) Sacral insufficiency fracture Current Visit: Yes Status: Acute Qualifiers: Encounter type: initial encounter Qualified Code(s): M84.48XA - Pathological fracture, other site, initial encounter for fracture Subjective Principal diagnosis: left groin pain Interval history: Patient is now s/p abscess drainage with DONN drain placement after CT guided placement of left groin abscess drainage catheter. Patient admits to complete relief of presenting symptoms. DONN drain noted to be in place. Hip ROM full. Neurovascularly intact. RDER #: [id number] MR/MR hip LT wo con IMPRESSION: 1. Acute nondisplaced insufficiency fractures of the bilateral sacral ala and S3 sacral body. 2. Mild left hip degenerative changes with a small effusion. Chondrocalcinosis and thick calcifications of the anterior capsule better appreciated on the recent CT. Findings again compatible with either calcium pyrophosphate or calcium hydroxyapatite deposition. Left hip periarticular soft tissue edema suggests an acute component of inflammation. 3. Mild right hip degenerative changes also with thick anterior joint capsule calcifications compatible with calcium pyrophosphate or calcium hydroxyapatite deposition. 4. Chronic high-grade sprains of the bilateral hamstring origins. D/ / Carlos Ernandez MD / Carlos Ernandez MD Patient admits to having DEXA scan in recent past - states she takes Calcium BID for her bones. Discussed need for new discussion re: fractures WBAT Encouraged close follow up with PCP regarding possible need for medication for osteoporosis In addition encouraged follow up with Sports Medicine for monitoring of fractures. Appt arranged. Thank you for consultation Objective Vital signs: Vital Signs Temp Pulse Resp BP Pulse Ox 10/23/18 08:09 98.0 F 74 16 119/57 95 10/23/18 03:02 98.2 F 75 14 105/57 93 10/23/18 00:04 98.4 F 78 15 96/55 93 10/22/18 20:47 93 10/22/18 18:26 98.9 F 84 18 114/72 93 10/22/18 12:33 98.5 F 66 17 126/71 93 Intake and Output 10/22/18 10/23/18 10/23/18 23:59 07:59 15:59 Intake Total 300 / 300 1100 / 1100 Output Total 10 Balance 300 / 300 1090 / 1090 Intake: IV Fluids 300 / 300 1100 / 1100 0.9 % Sodium Chloride 1,000 ML 1000 / 1000 @ 75 mls/hr IVC .[id number] NANDA Rx #:[id number] Cipro Premix 400 MG/200 ML 400 200 / 200 mg In 200 ml @ 200 mls/hr IVPB Q12H NANDA Rx#:[id number] Flagyl Premix 500 MG/100 ML 500 100 / 100 100 / 100 mg In 100 ml @ 100 mls/hr IVPB Q8H NANDA Rx#:[id number] Oral 0 / 0 Output: Wound Drainage Left Groin Other: Meal Dinner Percent of Meal Consumed 10% # Voids 1 1 - Labs CBC & BMP: 10/23/18 05:25 10/23/18 05:25 Labs: Abnormal lab results RBC 3.35 M/mcL (3.82-4.97) L 10/23/18 05:25 Hgb 10.3 g/dL (11.5-15.4) L 10/23/18 05:25 Hct 31.8 % (35.3-44.9) L 10/23/18 05:25 MPV 9.3 fL (9.4-12.4) L 10/23/18 05:25 ESR 59 mm/hr (0-15) H 10/21/18 19:04 PT 13.7 Seconds (9.4-12.1) H 10/22/18 05:20 APTT 36.1 Seconds (26.0-36.0) H 10/22/18 05:20 Glucose 117 mg/dL (70-105) H 10/23/18 05:25 C-Reactive Protein 13 mg/L (Less than 10) H 10/21/18 19:04 Ur Leukocyte Esterase Large (Negative) H 10/21/18 20:38 Urine Microscopic WBC 15-30 per hpf (0-3) H 10/21/18 20:38 Ur Squamous Epith Cells Many per lpf (None-Few) H 10/21/18 20:38 Ur Culture Indicated? NO. (NO) A 10/21/18 20:38 Fluid Appearance Hazy (Clear) A 10/22/18 13:50 Consult Discharge Plan - Plan Referrals: Lillian Andrade DO [Primary Care Provider] -
[2018-10-23] MEDS: Loratadine 10 MG TABLET PO SCH (09:09)
[2018-10-23] MEDS ORDERED: Ipratropium/Albuterol Neb 3 ML IH PRN (15:01)
[2018-10-23] MEDS: Ipratropium/Albuterol Neb 3 ML IH SCH ×2 (15:35→22:30)
--- NOTE | 2018-10-23 17:41 | Internal Med Progress Note ---
Hospitalist Progress Note - Encounter Date of Encounter: 10/23/18 Time of Encounter: 09:00 - Subjective Interval History: Patient feels left groin pain significantly improved. Patient can move left leg and bear some weight. Has mild wheezing today. No fever. - Exam Vitals: Temp Pulse Resp BP Pulse Ox 98.8 F 73 16 133/77 96 10/23/18 17:00 10/23/18 17:00 10/23/18 17:00 10/23/18 17:00 10/23/18 17:00 Exam: Pt is AAO x 3, in NAD HEENT: NC/AT, PERRL Neck: Supple, no JVD, no LAD Lungs: Scattered wheezes bilaterally. No rhonchi or crackles Heart: S1S2, RRR Abd: Soft, nontender, BS present Ext: Mild pain on movement of left leg.ROM wnl. no pedal edema. DONN drain in place with small amount of clear/yellowish fluid. Neuro: No focal deficit - Assessment and Plan (1) Left groin pain Current Visit: Yes Status: Acute Assessment and Plan: Patient presents with acute onset left groin pain with findings of fluid collection in the left iliopsoas muscle concerning for bursitis versus hematoma. IR aspiration done. Likely abscess. Lab sent, result pending. -Continue Pain control - Pt received meropenem in the emergency room. Continue with antibiotics for now with cipro and flagyl, waiting for culture result of blood and aspiration fluid. - Orthopedic consult appreciated. MRI done, shows nondisplaced insufficiency fractures of the bilateral sacral ala and S3 sacral body. Will follow orthopedic further recommendation. (2) Sepsis Current Visit: Yes Status: Acute Assessment and Plan: Possible sepsis with nearly 3/4 SIRS criteria. Patient currently hem odynamically stable. -Patient we placed on maintenance fluids -Continue with antibiotics for now and follow-up blood cultures. - Sepsis resolved at this point (3) COPD (chronic obstructive pulmonary disease) Current Visit: Yes Status: Acute Assessment and Plan: History of COPD not on home oxygen. Has mild wheezing today but in no acute distress -Continue with home inhalers - DuoNeb scheduled and when necessary (4) Hypertension Current Visit: Yes Status: Acute Assessment and Plan: Blood pressure stable. Continue with home antihypertensive medications. (5) DVT prophylaxis Current Visit: Yes Status: Acute Assessment and Plan: Intermittent pneumatic compression devices (6) Fibromyalgia Current Visit: Yes Status: Acute Assessment and Plan: Continue with pain control - Time Spent with Patient Total time spent is greater than 50% in coordination of care (as documented) at patient's floor/unit and/or counseling patient: 30 minutes 25 - 35 minutes Plan of Care Discussed with: patient - Assessment and Plan (1) Left groin pain Current Visit: Yes Status: Acute (2) Sepsis Current Visit: Yes Status: Acute (3) COPD (chronic obstructive pulmonary disease) Current Visit: Yes Status: Acute (4) Hypertension Current Visit: Yes Status: Acute (5) DVT prophylaxis Current Visit: Yes Status: Acute (6) Fibromyalgia Current Visit: Yes Status: Acute - Time Spent with Patient Total time spent is greater than 50% in coordination of care (as documented) at patient's floor/unit and/or counseling patient: Internal Medicine: Result - Labs CBC & Chem 7: 10/23/18 05:25 10/23/18 05:25 Labs: Short CBC 10/23/18 Range/Units 05:25 WBC 7.0 (4.3-11.1) K/mcL Hgb 10.3 L (11.5-15.4) g/dL Hct 31.8 L (35.3-44.9) % Plt Count 191 (140-400) K/mcL Neutrophils # 4.2 (1.6-8.9) K/mcL BMP 10/23/18 05:25 Sodium 139 Potassium 3.7 Chloride 106 Carbon Dioxide 27 BUN 14 Creatinine 0.83 Glucose 117 H Calcium 8.8 - ABG Interpretation ABG results: PT/INR, D-dimer PT 13.7 Seconds (9.4-12.1) H 10/22/18 05:20 - Impressions Impressions Chest X-Ray 10/23/18 11:13 IMPRESSION: No radiographic evidence of acute cardiopulmonary process. D/ / Neil Coreas MD / Neil Coreas MD Interpreting Provider: Neil Coreas MD Consult Discharge Plan - Plan Referrals: Lillian Andrade, [Primary Care Provider] - (2) Sepsis Qualifiers: Sepsis type: sepsis due to unspecified organism Qualified Code(s): A41.9 - Sepsis, unspecified organism (3) COPD (chronic obstructive pulmonary disease) Qualifiers: Emphysema type: unspecified Qualified Code(s): J43.9 - Emphysema, unspecified (4) Hypertension Qualifiers: Hypertension type: essential hypertension Qualified Code(s): I10 - Essential (primary) hypertension
[2018-10-23] MEDS: GuaiFENesin Liq 200 MG/10 ML UDC PO SCH ×2 (18:46→23:47)
[2018-10-23] MEDS: Gabapentin 400 MG CAPSULE PO SCH (20:02)
[2018-10-24] MEDS: MetroNIDAZOLE 500 MG/100 ML 500 MG/100 ML BAG IVPB SCH ×3 (02:17→17:32)
[2018-10-24 04:55] LABS: Basophils % 0.4 %; Eosinophils # 0.4 K/mcL (0.0-0.6); Eosinophils % 4.9 %; Hematocrit 31.4 % (35.3-44.9); Hemoglobin 10.3 g/dL (11.5-15.4); Immature Granulocytes % 0.2 % (0-4); Lymphocytes # 1.6 K/mcL (0.6-4.6); Lymphocytes % 18.7 %; Mean Corpuscular HGB Conc 32.8 g/dL (31.6-35.5); Mean Corpuscular Hemoglobin 30.7 pg (28.0-33.3); Mean Corpuscular Volume 93.5 fL (83.0-100.0); Mean Platelet Volume 9.5 fL (9.4-12.4); Monocytes # 0.9 K/mcL (0.0-1.3); Monocytes % 10.9 %; Neutrophils # 5.5 K/mcL (1.6-8.9); Platelet Count 203 K/mcL (140-400); Red Blood Count 3.36 M/mcL (3.82-4.97); Red Cell Distribution Width 13.9 % (11.5-14.5); Segmented Neutrophils % 64.9 %
[2018-10-24] MEDS: Ipratropium/Albuterol Neb 3 ML IH SCH ×4 (04:58→22:24)
[2018-10-24 05:06] LABS: BUN/Creatinine Ratio 14 (6-26); Blood Urea Nitrogen 10 mg/dL (8-23); Calcium 9.1 mg/dL (8.6-10.3); Carbon Dioxide 26 mEq/L (23-29); Chloride 106 mEq/L (98-107); Glucose 115 mg/dL (70-105); Osmolality,Calculated 290 (280-300); Potassium 3.7 mEq/L (3.5-5.1); Sodium 140 mEq/L (136-145); eGFR For Non-African Americans > 60 (> 60)
[2018-10-24] MEDS: GuaiFENesin Liq 200 MG/10 ML UDC PO SCH (06:02)
[2018-10-24] MEDS: traMADol 50 MG TABLET PO PRN (06:58)
[2018-10-24] MEDS: Loratadine 10 MG TABLET PO SCH (09:45)
[2018-10-24] MEDS: Budesonide/Formoterol 80/4.5 MDI IH SCH ×2 (10:20→22:24)
[2018-10-24] MEDS: Tiotropium 18 MCG inhalation IH SCH (10:21)
--- NOTE | 2018-10-24 13:14 | Internal Med Progress Note ---
Hospitalist Progress Note - Encounter Date of Encounter: 10/24/18 Time of Encounter: 10:00 - Subjective Interval History: Patient has a mild cough. No further wheezing. Left groin pain subside. Patient can walk by herself now. DONN drain in place with around 20 ml yellowish clear fluid over 24 hours. - Exam Vitals: Temp Pulse Resp BP Pulse Ox 98.8 F 78 18 133/73 94 10/24/18 12:53 10/24/18 12:53 10/24/18 12:53 10/24/18 12:53 10/24/18 12:53 Exam: Pt is AAO x 3, in NAD HEENT: NC/AT, PERRL Neck: Supple, no JVD, no LAD Lungs: Scattered wheezes bilaterally. No rhonchi or crackles Heart: S1S2, RRR Abd: Soft, nontender, BS present Ext: Mild pain on movement of left leg. ROM wnl. no pedal edema. DONN drain in place with small amount of clear/yellowish fluid. Neuro: No focal deficit - Assessment and Plan (1) Left groin pain Current Visit: Yes Status: Acute Assessment and Plan: Patient presents with acute onset left groin pain with findings of fluid collection in the left iliopsoas muscle concerning for bursitis versus hematoma. IR aspiration done. Likely abscess. Lab sent, result pending. - Pain hasalmost resolved. - Pt received meropenem in the emergency room. Continue with antibiotics for now with cipro and flagyl, waiting for culture result of blood and aspiration fluid. - Orthopedic consult appreciated. MRI done, shows nondisplaced insufficiency fractures of the bilateral sacral ala and S3 sacral body. WBAT per ortho. Follow-up with PCP for osteoporosis workup. (3) COPD (chronic obstructive pulmonary disease) Current Visit: Yes Status: Acute Assessment and Plan: History of COPD not on home oxygen. Wheezing resolved today -Continue with home inhalers - DuoNeb scheduled and when necessary (4) Hypertension Current Visit: Yes Status: Acute Assessment and Plan: Blood pressure stable. Continue with home antihypertensive medications. (5) DVT prophylaxis Current Visit: Yes Status: Acute Assessment and Plan: Intermittent pneumatic compression devices (6) Fibromyalgia Current Visit: Yes Status: Acute Assessment and Plan: Continue with pain control - Time Spent with Patient Total time spent is greater than 50% in coordination of care (as documented) at patient's floor/unit and/or counseling patient: 30 minutes 25 - 35 minutes Plan of Care Discussed with: patient - Assessment and Plan (1) Left groin pain Current Visit: Yes Status: Resolved (2) COPD (chronic obstructive pulmonary disease) Current Visit: Yes Status: Acute (3) Hypertension Current Visit: Yes Status: Acute (4) DVT prophylaxis Current Visit: Yes Status: Acute (5) Fibromyalgia Current Visit: Yes Status: Acute - Time Spent with Patient Total time spent is greater than 50% in coordination of care (as documented) at patient's floor/unit and/or counseling patient: Internal Medicine: Result - Labs CBC & Chem 7: 10/24/18 04:01 10/24/18 04:01 Labs: Short CBC 10/24/18 Range/Units 04:01 WBC 8.4 (4.3-11.1) K/mcL Hgb 10.3 L (11.5-15.4) g/dL Hct 31.4 L (35.3-44.9) % Plt Count 203 (140-400) K/mcL Neutrophils # 5.5 (1.6-8.9) K/mcL BMP 10/24/18 04:01 Sodium 140 Potassium 3.7 Chloride 106 Carbon Dioxide 26 BUN 10 Creatinine 0.74 Glucose 115 H Calcium 9.1 - ABG Interpretation ABG results: PT/INR, D-dimer PT 13.7 Seconds (9.4-12.1) H 10/22/18 05:20 - Impressions Impressions Hip X-Ray 10/21/18 18:10 IMPRESSION: 1. Sclerosis across the left femoral neck. Differential includes subacute fracture or stress fracture or intra-articular loose bodies. Recommend MR for further evaluation. D/ / 10/21/2018 18:36:54 Aj Seay MD / dee Interpreting Provider: Aj Seay MD Abdomen/Pelvis CT 10/21/18 18:19 IMPRESSION: 1. Fluid in the left iliopsoas muscle. Differential includes iliopsoas bursitis and/or hematoma, if patient has had recent trauma. 2. Bilateral hip capsular calcifications, left greater than right. Differential includes sequela of capsulitis and manifestation of calcium deposition disease, including hydroxyapatite deposition disease and CPPD. 3. No CT evidence of left hip fracture. If patient's pain persists or worsens, consider MR for further evaluation. 4. Cholelithiasis. No CT evidence of cholecystitis. 5. Moderate hiatal hernia. D/ / 10/21/2018 18:49:58 Aj Seay MD / dee Interpreting Provider: Aj Seay MD Consult Discharge Plan - Plan Referrals: Lillian Andrade DO [Primary Care Provider] - (2) COPD (chronic obstructive pulmonary disease) Qualifiers: Emphysema type: unspecified Qualified Code(s): J43.9 - Emphysema, unspecified (3) Hypertension Qualifiers: Hypertension type: essential hypertension Qualified Code(s): I10 - Essential (primary) hypertension
--- NOTE | 2018-10-24 14:49 | Electrocardiograph Report ---
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
[2018-10-24] MEDS: Gabapentin 400 MG CAPSULE PO SCH (21:39)
[2018-10-25] MEDS: MetroNIDAZOLE 500 MG/100 ML 500 MG/100 ML BAG IVPB SCH ×3 (01:29→18:15)
[2018-10-25] MEDS: Ipratropium/Albuterol Neb 3 ML IH SCH ×4 (04:19→22:09)
[2018-10-25] MEDS: traMADol 50 MG TABLET PO PRN (04:58)
[2018-10-25] MEDS: Loratadine 10 MG TABLET PO SCH (09:41)
[2018-10-25] MEDS: Budesonide/Formoterol 80/4.5 MDI IH SCH ×2 (11:17→22:09)
[2018-10-25] MEDS: Tiotropium 18 MCG inhalation IH SCH (11:18)
--- NOTE | 2018-10-25 12:36 | Internal Med Progress Note ---
Hospitalist Progress Note - Encounter Date of Encounter: 10/25/18 Time of Encounter: 09:00 - Subjective Interval History: Patient feels only minimal left groin pain now. No limitation on leg movement. No fever. - Exam Vitals: Temp Pulse Resp BP Pulse Ox 98.5 F 85 16 131/68 96 10/25/18 10:14 10/25/18 10:14 10/25/18 11:20 10/25/18 10:14 10/25/18 11:20 Exam: Pt is AAO x 3, in NAD HEENT: NC/AT, PERRL Neck: Supple, no JVD, no LAD Lungs: Scattered wheezes bilaterally. No rhonchi or crackles Heart: S1S2, RRR Abd: Soft, nontender, BS present Ext: Mild pain on movement of left leg. ROM wnl. no pedal edema. DONN drain in place with small amount of clear/yellowish fluid. Neuro: No focal deficit - Assessment and Plan (1) Left groin pain Current Visit: Yes Status: Acute Assessment and Plan: Patient presents with acute onset left groin pain with findings of fluid collection in the left iliopsoas muscle concerning for bursitis versus hematoma. IR aspiration done. Likely abscess. Lab sent, result pending. - Pain has almost resolved. - Pt received meropenem in the emergency room. Continue with antibiotics for now with cipro and flagyl, waiting for culture result of blood and aspiration fluid. - Orthopedic consult appreciated. MRI done, shows nondisplaced insufficiency fractures of the bilateral sacral ala and S3 sacral body. WBAT per ortho. F ollow-up with PCP for osteoporosis workup. (3) COPD (chronic obstructive pulmonary disease) Current Visit: Yes Status: Acute Assessment and Plan: History of COPD not on home oxygen. Wheezing resolved today -Continue with home inhalers - DuoNeb scheduled and when necessary (4) Hypertension Current Visit: Yes Status: Acute Assessment and Plan: Blood pressure stable. Continue with home antihypertensive medications. (5) DVT prophylaxis Current Visit: Yes Status: Acute Assessment and Plan: Intermittent pneumatic compression devices (6) Fibromyalgia Current Visit: Yes Status: Acute Assessment and Plan: Continue with pain control - Time Spent with Patient Total time spent is greater than 50% in coordination of care (as documented) at patient's floor/unit and/or counseling patient: 30 minutes 25 - 35 minutes Plan of Care Discussed with: patient - Assessment and Plan (1) Left groin pain Current Visit: Yes Status: Resolved (2) COPD (chronic obstructive pulmonary disease) Current Visit: Yes Status: Acute (3) Hypertension Current Visit: Yes Status: Acute (4) DVT prophylaxis Current Visit: Yes Status: Acute (5) Fibromyalgia Current Visit: Yes Status: Acute - Time Spent with Patient Total time spent is greater than 50% in coordination of care (as documented) at patient's floor/unit and/or counseling patient: Internal Medicine: Result - Labs CBC & Chem 7: 10/24/18 04:01 10/24/18 04:01 - ABG Interpretation ABG results: PT/INR, D-dimer PT 13.7 Seconds (9.4-12.1) H 10/22/18 05:20 Consult Discharge Plan - Plan Referrals: Lillian Andrade DO [Primary Care Provider] - (2) COPD (chronic obstructive pulmonary disease) Qualifiers: Emphysema type: unspecified Qualified Code(s): J43.9 - Emphysema, unspecified (3) Hypertension Qualifiers: Hypertension type: essential hypertension Qualified Code(s): I10 - Essential (primary) hypertension
[2018-10-25] MEDS: *HR* OxyCODONE Immed Rel 5 MG TABLET PO PRN (20:52)
[2018-10-25] MEDS: Gabapentin 400 MG CAPSULE PO SCH (20:52)
[2018-10-26] MEDS: MetroNIDAZOLE 500 MG/100 ML 500 MG/100 ML BAG IVPB SCH (01:54)
[2018-10-26] MEDS: traMADol 50 MG TABLET PO PRN ×3 (01:56→18:25)
[2018-10-26] MEDS: Ipratropium/Albuterol Neb 3 ML IH SCH ×4 (04:13→21:37)
[2018-10-26] MEDS: Loratadine 10 MG TABLET PO SCH (09:33)
[2018-10-26] MEDS: metroNIDAZOLE 500 MG TABLET PO SCH ×3 (09:33→19:30)
[2018-10-26] MEDS: Budesonide/Formoterol 80/4.5 MDI IH SCH ×2 (10:14→21:37)
[2018-10-26] MEDS: Tiotropium 18 MCG inhalation IH SCH (10:17)
[2018-10-26] MEDS: *HR* OxyCODONE Immed Rel 5 MG TABLET PO PRN (14:35)
[2018-10-26] MEDS ORDERED: *HR* OxyCODONE/APAP 5/325 TABLET PO ONE (15:09)
--- NOTE | 2018-10-26 15:17 | Internal Med Progress Note ---
Hospitalist Progress Note - Encounter Date of Encounter: 10/26/18 Time of Encounter: 15:00 - Subjective Interval History: Patient's left hip pain and left knee pain has resolved. DONN drain has removed by IR. However patient complaint of sharp onset left foot pain and left ankle pain. Need pain medications. Patient has no fever, vitals are stable. - Exam Vitals: Temp Pulse Resp BP Pulse Ox 98.1 F 96 15 114/65 97 10/26/18 14:16 10/26/18 14:16 10/26/18 14:16 10/26/18 14:16 10/26/18 14:16 Exam: Pt is AAO x 3, in NAD HEENT: NC/AT, PERRL Neck: Supple, no JVD, no LAD Lungs: Scattered wheezes bilaterally. No rhonchi or crackles Heart: S1S2, RRR Abd: Soft, nontender, BS present Ext: No pedal edema. Left ankle tenderness with limited ROM. Left hip/knee ROM w nl Neuro: No focal deficit - Assessment and Plan (1) Left groin pain Current Visit: Yes Status: Acute Assessment and Plan: Patient presents with acute onset left groin pain with findings of fluid collection in the left iliopsoas muscle concerning for bursitis versus hematoma. IR aspiration done. Likely abscess. Lab sent, culture negative. - Pain has resolved. - Continue with antibiotics for now with cipro and flagyl, waiting for culture result of blood and aspiration fluid. - Orthopedic consult appreciated. MRI done, shows nondisplaced insufficiency fractures of the bilateral sacral ala and S3 sacral body. WBAT per ortho. Follow-up with PCP for osteoporosis workup. (3) COPD (chronic obstructive pulmonary disease) Current Visit: Yes Status: Acute Assessment and Plan: History of COPD not on home oxygen. Wheezing resolved today -Continue with home inhalers - DuoNeb scheduled and when necessary (4) Hypertension Current Visit: Yes Status: Acute Assessment and Plan: Blood pressure stable. Continue with home antihypertensive medications. (5) DVT prophylaxis Current Visit: Yes Status: Acute Assessment and Plan: Intermittent pneumatic compression devices (6) Fibromyalgia Current Visit: Yes Status: Acute Assessment and Plan: Continue with pain control (7) left foot ankle pain: Etiology is undetermined. Will continue pain medication. Will order CT ankle/foot to r/o fracture/fluid collection. - Time Spent with Patient Total time spent is greater than 50% in coordination of care (as documented) at patient's floor/unit and/or counseling patient: 30 minutes 25 - 35 minutes Plan of Care Discussed with: patient - Assessment and Plan (1) Left groin pain Current Visit: Yes Status: Resolved (2) COPD (chronic obstructive pulmonary disease) Current Visit: Yes Status: Acute (3) Hypertension Current Visit: Yes Status: Acute (4) DVT prophylaxis Current Visit: Yes Status: Acute (5) Fibromyalgia Current Visit: Yes Status: Acute - Time Spent with Patient Total time spent is greater than 50% in coordination of care (as documented) at patient's floor/unit and/or counseling patient: Internal Medicine: Result - Labs CBC & Chem 7: 10/24/18 04:01 10/24/18 04:01 - ABG Interpretation ABG results: PT/INR, D-dimer PT 13.7 Seconds (9.4-12.1) H 10/22/18 05:20 Consult Discharge Plan - Plan Referrals: Lillian Andrade DO [Primary Care Provider] - (2) COPD (chronic obstructive pulmonary disease) Qualifiers: Emphysema type: unspecified Qualified Code(s): J43.9 - Emphysema, unspecified (3) Hypertension Qualifiers: Hypertension type: essential hypertension Qualified Code(s): I10 - Essential (primary) hypertension
[2018-10-26] MEDS ORDERED: Ketorolac 15 MG/ML VIAL IVP PRN (15:30)
[2018-10-26] MEDS ORDERED: Colchicine 0.6 MG TABLET PO ONE (18:37)
[2018-10-26] MEDS ORDERED: predniSONE 20 MG TABLET PO ONE (19:05)
[2018-10-26] MEDS: Gabapentin 400 MG CAPSULE PO SCH (19:29)
[2018-10-26] MEDS: Colchicine 0.6 MG TABLET PO SCH ×2 (19:30→19:34)
[2018-10-27] MEDS: *HR* OxyCODONE Immed Rel 5 MG TABLET PO PRN ×3 (00:41→22:36)
[2018-10-27] MEDS: Ipratropium/Albuterol Neb 3 ML IH SCH ×4 (03:20→21:41)
[2018-10-27 05:00] LABS: Basophils % 0.2 %; Eosinophils % 0.1 %; Hematocrit 35.2 % (35.3-44.9); Hemoglobin 11.4 g/dL (11.5-15.4); Immature Granulocytes % 0.4 % (0-4); Lymphocytes # 0.8 K/mcL (0.6-4.6); Mean Corpuscular HGB Conc 32.4 g/dL (31.6-35.5); Mean Corpuscular Hemoglobin 30.2 pg (28.0-33.3); Mean Corpuscular Volume 93.1 fL (83.0-100.0); Mean Platelet Volume 8.9 fL (9.4-12.4); Monocytes # 0.6 K/mcL (0.0-1.3); Monocytes % 5.5 %; Neutrophils # 8.7 K/mcL (1.6-8.9); Platelet Count 249 K/mcL (140-400); Red Blood Count 3.78 M/mcL (3.82-4.97); Red Cell Distribution Width 13.5 % (11.5-14.5); Segmented Neutrophils % 85.8 %
[2018-10-27 05:16] LABS: BUN/Creatinine Ratio 15 (6-26); Blood Urea Nitrogen 12 mg/dL (8-23); Calcium 9.5 mg/dL (8.6-10.3); Carbon Dioxide 25 mEq/L (23-29); Chloride 99 mEq/L (98-107); Glucose 184 mg/dL (70-105); Osmolality,Calculated 279 (280-300); Potassium 4.2 mEq/L (3.5-5.1); Sodium 132 mEq/L (136-145); eGFR For Non-African Americans > 60 (> 60)
[2018-10-27] MEDS: metroNIDAZOLE 500 MG TABLET PO SCH ×3 (08:39→19:48)
[2018-10-27] MEDS: Loratadine 10 MG TABLET PO SCH (08:40)
[2018-10-27] MEDS: Colchicine 0.6 MG TABLET PO SCH ×2 (08:40→19:48)
--- NOTE | 2018-10-27 08:59 | Rheumatology Consult Note ---
<Jin Martinez - Last Filed: 10/27/18 13:49> Date of Encounter: 10/27/18 Time of Encounter: 08:58 Rheumatology Assess and Plan (1) Left ankle pain Current Visit: Yes Status: Acute Developed acute left-sided ankle pain on 10/26 - Etiology unknown at this time; differential includes pseudogout, gout, septic arthritis, osteoarthritis - Patient was given prednisone and started on colchicine - CT scan of left lower extremity demonstrated: Chondrocalcinosis indicating underlying CPPD and possible Achilles tendinosis - On exam, tenderness to palpation on the medial and lateral aspects of the left ankle; reduced range of motion in all planes - No swelling, erythema, numbness, tingling, or clubbing present - Colchicine 0.6 mg by mouth twice a day was started Plan: - Start 16 day prednisone taper; 20 mg x4 days, 15mg x4 days, 10mg x4 days, 5mg x4days - Will order uric acid level - Follow-up with rheumatology in the outpatient setting Qualifiers: Qualified Code(s): M25.572 - Pain in left ankle and joints of left foot (2) Left groin pain Current Visit: Yes Status: Resolved - Initially presented with acute onset of left groin pain - CT scan of the abdomen and pelvis demonstrated a fluid collection in the left iliopsoas muscle - Patient was started on antibiotics; interventional radiology was consulted for fluid aspiration - MRI demonstrated nondisplaced insufficiency fractures of bilateral sacral ala and S3 sacral body - Culture fluid demonstrated no growth - DONN drain has been removed by interventional radiology Plan: - Prednisone taper as above - Pain relief as needed - Follow-up with dermatology in the outpatient setting Rheumatology HPI Consult date: 10/27/18 History of present illness: Arnaud Frederick is an 83-year-old female with a PMH of fibromyalgia, HTN, arthritis, HLD, and COPD who presented to [facility] ED on 10/21/18 with a chief complaint of acute left lower groin pain. Pain was sudden in onset. Happened while she was playing cards with her friends. Patient stated that when she went get up, she felt a sudden, sharp pain in the left groin radiating to the left knee. Aggravated with left hip flexion and ambulation and relieved with rest. Her pain made it difficult to walk. On arrival, vital signs were significant for a temperature of 100.5 and a heart rate of 96. Labs demonstrated an elevated white count 11.8. ESR elevated at 59. CT scan of the abdomen and pelvis showed fluid in the left iliopsoas muscle concerning for iliopsoas burs itis versus hematoma. Orthopedics was consulted and MRI was ordered to evaluate for the possibility of occult fracture; demonstrated non-displaced insufficiency fractures of the bilateral sacral ala and S3 body. IR was consulted for aspiration of fluid; fluid was suspicious for abscess. Antibiotics were switched to Cipro and Flagyl. Culture of the fluid was ordered. DONN drain was placed. Culture of fluid demonstrated no growth. DONN drain was then removed by interventional radiology. Per hospitalist note on 10/26, patient developed acute onset of sharp left foot and ankle pain. CT scan of the ankle and foot was ordered, which demonstrated chondrocalcinosis involving the tibiotalar joint line and interposed at the tibiofibular syndesmosis suggesting underlying crystalline arthropathy. Patient was started on colchicine 0.6 mg BID. Patient was seen and examined at bedside this morning. She states that she is feeling much better today. She reports that her left-sided groin pain has almost completely resolved. Her ankle still feels somewhat painful with movement, but has significantly improved compared to yesterday. She notes that her pain subsided after receiving prednisone. She denies having any previous episodes of acute joint pain. She states that she does have a known history of fibromyalgia, but has never experienced acute pain in any of her joints like this before. During her stay in the hospital, patient has not ambulated. She states that she is normally able to walk on her own without assistance. She currently denies having any swelling, erythema, weakness, numbness, or tingling in the affected extremity. She does admit to some pain with movement on both the medial and lateral aspect of left ankle. She has no further complaints at this time. Past Med Surg Social Fam HX - Past Medical History Medical history: coronary artery disease, diabetes, GERD, hypertension, other Additional medical history: osteopenia Psychiatric history: no psych history - Past Surgical History Surgical History: angioplasty/stent, appendectomy, Additional surgical history: tubal - Social History Smoking Status: Never smoker Smokeless Tobacco Status: No Alcohol use: none Drug use: none Medications and Allergies Aspirin [Lo-Dose Aspirin EC] 81 mg PO DAILY 10/21/18 [History] Atorvastatin [Lipitor] 10 mg PO DAILY 10/21/18 [History] Budesonide/Formoterol 80/4.5 [Symbicort 80/4.5] 2 puff IH BID 10/21/18 [History] Calcium Carbonate/Vitamin D3 [Caltrate 600 + D Soft Chew Tab] 1 each PO BID 10/21/18 [History] Cetirizine HCl [Zyrtec] 10 mg PO DAILY 10/21/18 [History] Citalopram Hydrobromide [Citalopram HBr] 20 mg PO DAILY 10/21/18 [History] Gabapentin 1,200 mg PO HS 10/21/18 [History] RX: Albuterol Sulfate [Albuterol Inhaler] 2 puff IH Q4H PRN 10/21/18 [History] RX: Lisinopril-HCTZ 10-12.5 [Prinzide 10-12.5] 1 tab PO DAILY 10/21/18 [History] RX: Omeprazole [PriLOSEC] 20 mg PO DAILY 10/21/18 [History] Tramadol HCl [Ultram] 50 mg PO BID PRN 10/21/18 [History] Umeclidinium Hammond [Incruse Ellipta] 1 puff IH DAILY 10/21/18 [History] Allergy/AdvReac Type Severity Reaction Status Date / Time Penicillins [PCN] Allergy Rash Verified 03/19/17 14:00 All Systems Review: The remainder of the systems were reviewed and are negative Review of Systems: Extremities: admits to tenderness to palpation on medial and lateral aspect of l eft ankle; restricted ROM in all 4 planes of motion Denies weakness, paresthesias, clubbing, edema, cyanosis, fever, chills Rheumatology Exam Vital Signs, Last 4 Hours Temp Pulse Resp BP Pulse Ox 10/27/18 06:43 98.0 F 77 18 122/66 95 Exam: General: conversant, no acute distress Head: atraumatic, normocephalic Eye: PERRL, EOMI, conjuntiva pink, sclera anicteric Neck: Supple, trachea midline; No lymphadenopathy Respiratory: CTAB. No accessory muscle use, wheezes, rales, or rhonchi Cardiovascular: RRR, +S1, +S2; no murmurs, rubs, gallops Extremities: Pain on palpation of medial and lateral aspect of left ankle; no clubbing, edema, erythema, or cyanosis; reduced range of motion in all 4 planes of motion of the left ankle Psychiatric: Normal affect, normal mood Skin: Dry, intact Rheumatology Results 10/27/18 04:45 10/27/18 04:45 All other labs normal. Consult Discharge Plan - Plan Referrals: Lillian Andrade, [Primary Care Provider] - <Loi Orosco - Last Filed: 10/27/18 16:29> Date of Encounter: 10/27/18 Rheumatology HPI History of present illness: Ms. Frederick is a 83 year old female All Systems Review: The remainder of the systems were reviewed and are negative Rheumatology Exam Vital Signs, Last 4 Hours Temp Pulse Resp BP Pulse Ox 10/27/18 14:10 98.4 F 87 15 131/66 94 Rheumatology Results 10/27/18 04:45 10/27/18 04:45 All other labs normal. - Attending Attestation I examined this patient and my medical decision making was reviewed with the resident physician. I agree with the documented findings, disposition and treatment as described with these exceptions. Stephanie Frederick is an 83-year-old female with PMH of HTN, COPD, HLD who presented to the hospital with hip pain, fever. - Left hip pain sudden - Workup for fluid collection in the left iliopsoais. Marked chondrocalcinosis on imaging. Cultures negative. - Left foot arthritis - Imaging positive for chondrocalcinosis, good response to prednisone. Left ankle - Small effusion and likely a tenosynovitis around the lateral portion of the ankle with mild erythema, warmth and pain on ROM. Uric Acid 5.4. 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 Gout, infectious possible but she has also had a good response to prednisone. - Would recommend continued prednisone taper over 16 days as above. If worsens, would try to aspirate fluid with crystal analysis. 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 Bruno and wishes to return to his care as an outpatient.
[2018-10-27] MEDS: Tiotropium 18 MCG inhalation IH SCH (10:29)
[2018-10-27] MEDS: Budesonide/Formoterol 80/4.5 MDI IH SCH ×2 (10:29→21:43)
--- NOTE | 2018-10-27 14:12 | Internal Med Progress Note ---
Hospitalist Progress Note - Encounter Date of Encounter: 10/27/18 Time of Encounter: 09:00 - Subjective Interval History: Pt said left ankle pain has improved, only has pain on movement. Left groin pain has resolved. - Exam Vitals: Temp Pulse Resp BP Pulse Ox 98.4 F 96 16 118/69 92 10/27/18 09:54 10/27/18 09:54 10/27/18 10:30 10/27/18 09:54 10/27/18 10:30 Exam: Pt is AAO x 3, in NAD HEENT: NC/AT, PERRL Neck: Supple, no JVD, no LAD Lungs: CTA, no wheezing, No rhonchi or crackles Heart: S1S2, RRR Abd: Soft, nontender, BS present Ext: No pedal edema. Left ankle tenderness with limited ROM. Left hip/knee ROM wnl Neuro: No focal deficit - Assessment and Plan (1) Left groin pain Current Visit: Yes Status: Acute Assessment and Plan: Patient presents with acute onset left groin pain with findings of fluid collection in the left iliopsoas muscle concerning for bursitis versus hematoma. IR aspiration done. Likely abscess. Lab sent, culture negative. - Pain has resolved. - Continue with antibiotics for now with cipro and flagyl, aspiration fluid culture shows no growth, will d/c abx after 7 day course. - Orthopedic consult appreciated. MRI done, shows nondisplaced insufficiency fractures of the bilateral sacral ala and S3 sacral body. WBAT per ortho. Follow-up with PCP for osteoporosis workup. (3) COPD (chronic obstructive pulmonary disease) Current Visit: Yes Status: Acute Assessment and Plan: History of COPD not on home oxygen. Wheezing resolved today -Continue with home inhalers - DuoNeb scheduled and when necessary (4) Hypertension Current Visit: Yes Status: Acute Assessment and Plan: Blood pressure stable. Continue with home antihypertensive medications. (5) DVT prophylaxis Current Visit: Yes Status: Acute Assessment and Plan: Intermittent pneumatic compression devices (6) Fibromyalgia Current Visit: Yes Status: Acute Assessment and Plan: Continue with pain control (7) left foot ankle pain: Likely Pseudogout. Rheumatology consult appreciated. Will cont steroid and Colchicine at this point, follow Rheumatology further recommendation. - Time Spent with Patient Total time spent is greater than 50% in coordination of care (as documented) at patient's floor/unit and/or counseling patient: 30 minutes 25 - 35 minutes Plan of Care Discussed with: patient - Assessment and Plan (1) Left groin pain Current Visit: Yes Status: Resolved (2) COPD (chronic obstructive pulmonary disease) Current Visit: Yes Status: Acute (3) Hypertension Current Visit: Yes Status: Acute (4) DVT prophylaxis Current Visit: Yes Status: Acute (5) Fibromyalgia Current Visit: Yes Status: Acute - Time Spent with Patient Total time spent is greater than 50% in coordination of care (as documented) at patient's floor/unit and/or counseling patient: Internal Medicine: Result - Labs CBC & Chem 7: 10/27/18 04:45 10/27/18 04:45 Labs: Short CBC 10/27/18 Range/Units 04:45 WBC 10.1 (4.3-11.1) K/mcL Hgb 11.4 L (11.5-15.4) g/dL Hct 35.2 L (35.3-44.9) % Plt Count 249 (140-400) K/mcL Neutrophils # 8.7 (1.6-8.9) K/mcL BMP 10/27/18 04:45 Sodium 132 L Potassium 4.2 Chloride 99 Carbon Dioxide 25 BUN 12 Creatinine 0.82 Glucose 184 H Calcium 9.5 - ABG Interpretation ABG results: PT/INR, D-dimer PT 13.7 Seconds (9.4-12.1) H 10/22/18 05:20 - Impressions Impressions Lower Extremity CT 10/26/18 15:11 IMPRESSION: 1. No acute osseous abnormality. 2. Chondrocalcinosis indicating underlying CPPD. 3. Achilles tendon thickening may represent Achilles tendinosis. D/ / 10/26/2018 16:55:04 Yoni Kauffman MD / dee Interpreting Provider: Yoni Kauffman MD Consult Discharge Plan - Plan Referrals: Lillian Andrade DO [Primary Care Provider] - _ (2) COPD (chronic obstructive pulmonary disease) Qualifiers: Emphysema type: unspecified Qualified Code(s): J43.9 - Emphysema, unspecified (3) Hypertension Qualifiers: Hypertension type: essential hypertension Qualified Code(s): I10 - Essential (primary) hypertension
[2018-10-27] MEDS: predniSONE 20 MG TABLET PO SCH (14:48)
[2018-10-27] MEDS: traMADol 50 MG TABLET PO PRN (19:48)
[2018-10-27] MEDS: Gabapentin 400 MG CAPSULE PO SCH (19:48)
[2018-10-28] MEDS: Ipratropium/Albuterol Neb 3 ML IH SCH ×4 (04:20→21:59)
[2018-10-28 07:15] LABS: Basophils % 0.2 %; Eosinophils % 0.3 %; Hematocrit 33.1 % (35.3-44.9); Hemoglobin 10.9 g/dL (11.5-15.4); Immature Granulocytes % 0.4 % (0-4); Lymphocytes # 1.8 K/mcL (0.6-4.6); Lymphocytes % 16.3 %; Mean Corpuscular HGB Conc 32.9 g/dL (31.6-35.5); Mean Corpuscular Hemoglobin 30.4 pg (28.0-33.3); Mean Corpuscular Volume 92.5 fL (83.0-100.0); Mean Platelet Volume 9.2 fL (9.4-12.4); Monocytes # 1.3 K/mcL (0.0-1.3); Monocytes % 11.5 %; Neutrophils # 7.7 K/mcL (1.6-8.9); Platelet Count 297 K/mcL (140-400); Red Blood Count 3.58 M/mcL (3.82-4.97); Red Cell Distribution Width 13.4 % (11.5-14.5); Segmented Neutrophils % 71.3 %
[2018-10-28 07:39] LABS: BUN/Creatinine Ratio 25 (6-26); Blood Urea Nitrogen 19 mg/dL (8-23); Calcium 9.5 mg/dL (8.6-10.3); Carbon Dioxide 26 mEq/L (23-29); Chloride 99 mEq/L (98-107); Glucose 121 mg/dL (70-105); Osmolality,Calculated 282 (280-300); Sodium 134 mEq/L (136-145); eGFR For Non-African Americans > 60 (> 60)
[2018-10-28] MEDS: Loratadine 10 MG TABLET PO SCH (08:08)
[2018-10-28] MEDS: Colchicine 0.6 MG TABLET PO SCH ×2 (08:08→20:06)
[2018-10-28] MEDS: predniSONE 20 MG TABLET PO SCH (08:09)
[2018-10-28] MEDS: metroNIDAZOLE 500 MG TABLET PO SCH ×3 (08:09→20:15)
[2018-10-28] MEDS: Tiotropium 18 MCG inhalation IH SCH (10:54)
[2018-10-28] MEDS: Budesonide/Formoterol 80/4.5 MDI IH SCH ×2 (10:54→21:59)
--- NOTE | 2018-10-28 15:31 | Discharge Summary ---
- NOTES TO OUTPATIENT PROVIDER Notes to Outpatient Provider: patient was diagnosed with pseudogout and started on colchicine and prednisone taper. Patient will need outpatient rheumatology follow-up and workup for osteoporosis and sports medicine for fractures Date of Encounter: 10/28/18 Time of Encounter: 12:24 - Discharge Diagnosis (1) Left groin pain Priority: Primary Status: Resolved (2) COPD (chronic obstructive pulmonary disease) Priority: Secondary Status: Acute Qualifiers: Emphysema type: unspecified Qualified Code(s): J43.9 - Emphysema, unspecified (3) Hypertension Priority: Secondary Status: Acute Qualifiers: Hypertension type: essential hypertension Qualified Code(s): I10 - Essential (primary) hypertension (4) DVT prophylaxis Priority: Secondary Status: Acute (5) Fibromyalgia Priority: Secondary Status: Acute (6) Iliopsoas abscess on left Priority: Primary Status: Acute (7) Sacral insufficiency fracture Priority: Secondary Status: Acute Qualifiers: Encounter type: initial encounter Qualified Code(s): M84.48XA - Pathological fracture, other site, initial encounter for fracture Hospital course: Ms. Frederick is a 83 year old female with past medical history of fibromyalg came in with complaint of left groin pain. Patient was found to have mild fever, mild leukocytosis and CT scan was obtained. CT scan showed fluid collection concerning for bursitis versus hematoma. she was started on antibiotics from the ER with meropenem. patient had orthopedic consultation who recommended IR guide fluid drainage. Patient had IR drain of purulent material and DONN drain was place. MRI was obtained which showed insufficiency fractures of b/l sacral ala and s3 sacral body. Patient had outpatient workup for osteoporosis with DEXA and was taking calcium only. She will need PCP follow up to consider stating medication for osteoporosis as well as sports medicine follow up. She was continued on ciprofloxacin and flagyl. Blood and body fluid culture did not grow any organisms. She continued to improve clinically however later developed ankle pain. CT showed possibility of psuedogout. Colcihine was started. Rheumatology was consulted who started patient on prednisone taper for pseudogout. DONN drain was removed. Patient otherwise medically stable to be discharge to rehab per PT recommendation. She will finish 7 day course of cipro/flagyl. Patient is await ing placement to SNF. Discharge discussed with: patient, family, nurse - Time Spent with Patient Total time spent providing and/or coordinating discharge services: Time spent: Greater than 30 minutes (38) - Discharge Medications Prescriptions: New Colchicine [Colcrys] 0.6 mg PO BID 30 Days #60 tablet predniSONE [PredniSONE] See Taper PO DAILY 14 Days #32 tablet Continue Budesonide/Formoterol 80/4.5 [Symbicort 80/4.5] 2 puff IH BID Umeclidinium [place] [Incruse Ellipta] 1 puff IH DAILY Albuterol Sulfate [Albuterol Inhaler] 2 puff IH Q4H PRN PRN Reason: Shortness Of Breath Aspirin [Lo-Dose Aspirin EC] 81 mg PO DAILY Atorvastatin [Lipitor] 10 mg PO DAILY Citalopram Hydrobromide [Citalopram HBr] 20 mg PO DAILY Gabapentin 1,200 mg PO HS Lisinopril-HCTZ 10-12.5 [Prinzide 10-12.5] 1 tab PO DAILY Omeprazole [PriLOSEC] 20 mg PO DAILY Tramadol HCl [Ultram] 50 mg PO BID PRN PRN Reason: Pain Calcium Carbonate/Vitamin D3 [Caltrate 600 + D Soft Chew Tab] 1 each PO BID Cetirizine HCl [Zyrtec] 10 mg PO DAILY Home Medications: Albuterol Sulfate [Albuterol Inhaler] 2 puff IH Q4H PRN 10/21/18 [History] Aspirin [Lo-Dose Aspirin EC] 81 mg PO DAILY 10/21/18 [History] Atorvastatin [Lipitor] 10 mg PO DAILY 10/21/18 [History] Budesonide/Formoterol 80/4.5 [Symbicort 80/4.5] 2 puff IH BID 10/21/18 [History] Calcium Carbonate/Vitamin D3 [Caltrate 600 + D Soft Chew Tab] 1 each PO BID 10/21/18 [History] Cetirizine HCl [Zyrtec] 10 mg PO DAILY 10/21/18 [History] Citalopram Hydrobromide [Citalopram HBr] 20 mg PO DAILY 10/21/18 [History] Gabapentin 1,200 mg PO HS 10/21/18 [History] Lisinopril-HCTZ 10-12.5 [Prinzide 10-12.5] 1 tab PO DAILY 10/21/18 [History] Omeprazole [PriLOSEC] 20 mg PO DAILY 10/21/18 [History] Tramadol HCl [Ultram] 50 mg PO BID PRN 10/21/18 [History] Umeclidinium [place] [Incruse Ellipta] 1 puff IH DAILY 10/21/18 [History] Colchicine [Colcrys] 0.6 mg PO BID 30 Days #60 tablet 10/28/18 [Rx] predniSONE [PredniSONE] See Taper PO DAILY 14 Days #32 tablet 10/28/18 [Rx] Allergies/Adverse Reactions: Allergy/AdvReac Type Severity Reaction Status Date / Time Penicillins [PCN] Allergy Rash Verified 03/19/17 14:00 Date of admission: 10/24/18 18:28 Primary care physician: Lillian Andrade DO Consults: 10/21/18 21:19 Consult to Interventional Radiology [CONS] Routine Consulting Provider: Radiology Interventional Cols Reason for Consult: Left groin pain with findings of left-sided iliopsoas fluid collection concerning for abscess versus hematoma Call Completed: No 10/26/18 07:42 Consult to Interventional Radiology [CONS] Routine Consulting Provider: Radiology Interventional Cols Reason for Consult: DONN drain management Call Completed: Yes 10/26/18 08:16 Consult to Warranty Manager [CONS] Routine Reason for SW Consult: need for home health 10/26/18 09:22 Consult to Occupational Therapy [CONS] Stat Comment: Evaluate, develop and implement POC Reason for Consult: Weakness Does patient have active BEDREST order?: No Is patient medically & hemodynamically stable?: Yes Consult to Physical Therapy [CONS] Stat Comment: Evaluate, develop and implement POC Reason for Consult: Weakness Does patient have active BEDREST order?: No Is patient medically & hemodynamically stable?: Yes 10/26/18 18:40 Consult to Rheumatology [CONS] Routine Consulting Provider: Loi Orosco Reason for Consult: Multiple joints pain, imaging suspect pseudogout Call Completed: Yes Discharging clinician: Sterling Coreas - Constitutional Vitals: Temp Pulse Resp BP Pulse Ox 98.2 F 82 13 145/80 94 10/28/18 14:56 10/28/18 14:56 10/28/18 14:56 10/28/18 14:56 10/28/18 14:56 Exam: General: In no acute distress. Respiratory exam: CTAB. no accessory muscle use, rales, rhonchi, wheezes Cardiovascular exam: RRR, +S1, +S2. no murmur, gallop, rubs. GI/Abdominal exam: Non-tender, Non-distended, normal bowel sounds, soft, no peritoneal signs. Extremities exam: no pedal edema, pulses palpable in b/l lower extremities. no calf tenderness. improved range of motion and pain on lt ankle Neurological exam: CN II-XII intact, AO X3, no focal deficits. Skin exam: Lt groin unremarkable. - Patient Status Disposition: Transfer SNF Condition: Good - Discharge Instructions Follow Up With: Lillian Andrade DO [Primary Care Provider] -
--- NOTE | 2018-10-28 16:15 | Physician Discharge Referral ---
ExtendedCare Referral Info Institutional Level of Care: Skilled - Diagnosis (1) Left groin pain Status: Resolved (2) COPD (chronic obstructive pulmonary disease) Status: Acute (3) Hypertension Status: Acute (4) DVT prophylaxis Status: Acute (5) Fibromyalgia Status: Acute (6) Iliopsoas abscess on left Status: Acute (7) Sacral insufficiency fracture Status: Acute - Transfer Medications Prescriptions: Colchicine [Colcrys] 0.6 mg PO BID 30 Days #60 tablet predniSONE [PredniSONE] See Taper PO DAILY 14 Days #32 tablet Home Medications: Albuterol Sulfate [Albuterol Inhaler] 2 puff IH Q4H PRN 10/21/18 [History] Aspirin [Lo-Dose Aspirin EC] 81 mg PO DAILY 10/21/18 [History] Atorvastatin [Lipitor] 10 mg PO DAILY 10/21/18 [History] Budesonide/Formoterol 80/4.5 [Symbicort 80/4.5] 2 puff IH BID 10/21/18 [History] Calcium Carbonate/Vitamin D3 [Caltrate 600 + D Soft Chew Tab] 1 each PO BID 10/21/18 [History] Cetirizine HCl [Zyrtec] 10 mg PO DAILY 10/21/18 [History] Citalopram Hydrobromide [Citalopram HBr] 20 mg PO DAILY 10/21/18 [History] Gabapentin 1,200 mg PO HS 10/21/18 [History] Lisinopril-HCTZ 10-12.5 [Prinzide 10-12.5] 1 tab PO DAILY 10/21/18 [History] Omeprazole [PriLOSEC] 20 mg PO DAILY 10/21/18 [History] Tramadol HCl [Ultram] 50 mg PO BID PRN 10/21/18 [History] Umeclidinium [place] [Incruse Ellipta] 1 puff IH DAILY 10/21/18 [History] Colchicine [Colcrys] 0.6 mg PO BID 30 Days #60 tablet 10/28/18 [Rx] predniSONE [PredniSONE] See Taper PO DAILY 14 Days #32 tablet 10/28/18 [Rx] Allergies/Adverse Reactions: Allergy/AdvReac Type Severity Reaction Status Date / Time Penicillins [PCN] Allergy Rash Verified 03/19/17 14:00 - Respiratory Orders Smoking Cessation: Smoking cessation has been advised. For more information, call the [place] Tobacco Quit Line at 9-041-TSNQ-NOW. CERTIFICATION: I certify that the transfer of the above named patient to an Extended Care Facility is necessary for the continuing treatment of the diagnosis listed. The above information is true and accurate reflection of patient's current condition. Confidential - Redisclosure prohibited without a patient's written consent.
[2018-10-28] MEDS: Gabapentin 400 MG CAPSULE PO SCH (20:05)
[2018-10-28] MEDS: *HR* OxyCODONE Immed Rel 5 MG TABLET PO PRN (22:23)
[2018-10-29] MEDS: traMADol 50 MG TABLET PO PRN (01:49)
[2018-10-29] MEDS: Ipratropium/Albuterol Neb 3 ML IH SCH ×3 (03:35→15:45)
[2018-10-29] MEDS: Colchicine 0.6 MG TABLET PO SCH (08:06)
[2018-10-29] MEDS: predniSONE 20 MG TABLET PO SCH (08:06)
[2018-10-29] MEDS: Loratadine 10 MG TABLET PO SCH (08:06)
[2018-10-29] MEDS: Tiotropium 18 MCG inhalation IH SCH (10:17)
[2018-10-29] MEDS: Budesonide/Formoterol 80/4.5 MDI IH SCH (10:26)
--- NOTE | 2018-10-29 13:11 | Internal Med Progress Note ---
Hospitalist Progress Note - Encounter Date of Encounter: 10/29/18 Time of Encounter: 13:06 - Subjective Interval History: Patient seen and examined this morning at bedside. No acute overnight events. Denies any new complaints denies any pain in ankle or abdomen. - Exam Vitals: Temp Pulse Resp BP Pulse Ox 97.5 F L 86 15 124/69 94 10/29/18 10:42 10/29/18 10:42 10/29/18 10:42 10/29/18 10:42 10/29/18 10:42 Exam: General: In no acute distress. Respiratory exam: CTAB. no accessory muscle use, rales, rhonchi, wheezes Cardiovascular exam: RRR, +S1, +S2. no murmur, gallop, rubs. GI/Abdominal exam: Non-tender, Non-distended, normal bowel sounds, soft, no peritoneal signs. Extremities exam: no pedal edema, pulses palpable in b/l lower extremities. no calf tenderness. improved range of motion and pain on lt ankle Neurological exam: CN II-XII intact, AO X3, no focal deficits. Skin exam: Lt groin unremarkable. - Assessment and Plan (1) Left groin pain Current Visit: Yes Status: Resolved (2) COPD (chronic obstructive pulmonary disease) Current Visit: Yes Status: Acute (3) Hypertension Current Visit: Yes Status: Acute (4) DVT prophylaxis Current Visit: Yes Status: Acute (5) Fibromyalgia Current Visit: Yes Status: Acute (6) Iliopsoas abscess on left Current Visit: Yes Status: Acute (7) Sacral insufficiency fracture Current Visit: Yes Status: Acute - Summary of Assessment and Plan Summary of Assessment and Plan: COPD - continue duonebs, symbicort and Ellipta Iliopsoas abscess on left - s/p drainage and antibiotic. Finished course today. No growht in cultures Sacral insufficiency fracture - On MRI - will need outpatient follow up for osteoporosis treatment Pseudogout - To continue prednisone taper and colcihine. awaiting placement - Time Spent with Patient Total time spent is greater than 50% in coordination of care (as documented) at patient's floor/unit and/or counseling patient: Internal Medicine: Result - Labs CBC & Chem 7: 10/28/18 06:34 10/28/18 06:34 - ABG Interpretation ABG results: PT/INR, D-dimer PT 13.7 Seconds (9.4-12.1) H 10/22/18 05:20 Consult Discharge Plan - Plan Referrals: Lillian Andrade DO [Primary Care Provider] - Prescriptions: Colchicine [Colcrys] 0.6 mg PO BID 30 Days #60 tablet predniSONE [PredniSONE] See Taper PO DAILY 14 Days #32 tablet (2) COPD (chronic obstructive pulmonary disease) Qualifiers: Emphysema type: unspecified Qualified Code(s): J43.9 - Emphysema, unspecified (3) Hypertension Qualifiers: Hypertension type: essential hypertension Qualified Code(s): I10 - Essential (primary) hypertension (7) Sacral insufficiency fracture Qualifiers: Encounter type: initial encounter Qualified Code(s): M84.48XA - Pathological fracture, other site, initial encounter for fracture
[2018-10-29 14:30] VITALS: BP 116/67
--- NOTE | 2018-10-29 15:45 | Physician Discharge Referral ---
Home Health/Hosp Referral Info Transfer to: Home Health - Diagnosis (1) Left groin pain Status: Resolved (2) COPD (chronic obstructive pulmonary disease) Status: Acute (3) Hypertension Status: Acute (4) DVT prophylaxis Status: Acute (5) Fibromyalgia Status: Acute (6) Iliopsoas abscess on left Status: Acute (7) Sacral insufficiency fracture Status: Acute - Respiratory Orders Smoking Cessation: Smoking cessation has been advised. For more information, call the [place] Tobacco Quit Line at 9-911-ZZGZ-NOW. - Services Needed Following services are medically necessary services: Physical Therapy, Occupational Therapy - Transfer Medications Prescriptions: Colchicine [Colcrys] 0.6 mg PO BID 30 Days #60 tablet predniSONE [PredniSONE] See Taper PO DAILY 14 Days #32 tablet Home Medications: Albuterol Sulfate [Albuterol Inhaler] 2 puff IH Q4H PRN 10/21/18 [History] Aspirin [Lo-Dose Aspirin EC] 81 mg PO DAILY 10/21/18 [History] Atorvastatin [Lipitor] 10 mg PO DAILY 10/21/18 [History] Budesonide/Formoterol 80/4.5 [Symbicort 80/4.5] 2 puff IH BID 10/21/18 [History] Calcium Carbonate/Vitamin D3 [Caltrate 600 + D Soft Chew Tab] 1 each PO BID 10/21/18 [History] Cetirizine HCl [Zyrtec] 10 mg PO DAILY 10/21/18 [History] Citalopram Hydrobromide [Citalopram HBr] 20 mg PO DAILY 10/21/18 [History] Gabapentin 1,200 mg PO HS 10/21/18 [History] Lisinopril-HCTZ 10-12.5 [Prinzide 10-12.5] 1 tab PO DAILY 10/21/18 [History] Omeprazole [PriLOSEC] 20 mg PO DAILY 10/21/18 [History] Tramadol HCl [Ultram] 50 mg PO BID PRN 10/21/18 [History] Umeclidinium [place] [Incruse Ellipta] 1 puff IH DAILY 10/21/18 [History] Colchicine [Colcrys] 0.6 mg PO BID 30 Days #60 tablet 10/28/18 [Rx] predniSONE [PredniSONE] See Taper PO DAILY 14 Days #32 tablet 04/03/19 [Rx] Allergies/Adverse Reactions: Allergy/AdvReac Type Severity Reaction Status Date / Time Penicillins [PCN] Allergy Rash Verified 03/19/17 14:00 Certification: Further, I certify that my clinical findings support that this patient is homebound (i.e. absences from home require considerable and taxing effort and are for medical reasons or gnosticist services or infrequently or short duration when for other reasons) because: Homebound Reason: Patient requires assistance of a person or device to safely leave home Attestation: My signature below is to certify that this patient is under my care and that I, or nurse practitioner, or a physician's assistant auto center manager working with me, has a [id number] encounter with this patient.
== END 2018-10-29 16:42 | disposition home health service (06) | DRG 871 ==
LOC: EMEROOARM 18:00 → 3ANU 18:00 → SUATTDRO 21:05 → INTOOBSV 21:05 → OBSVTOIN 21:05 → 3ANU 21:46 → SUATTDRO 10-24 18:28
PROVIDERS: ADMIT Internal Medicine; ATTEND Internal Medicine
PROC: IRDRAIN (2018-10-22 13:00)

== ENCOUNTER 2019-03-21 07:52 | Inpatient (IN) ==
[2019-03-21] MEDS ORDERED: Acetaminophen 325 MG TABLET PO ONE (08:08)
[2019-03-21] MEDS: 0.9 % Sodium Chloride 1,000 ML IVC SCH ×2 (08:13→09:14)
[2019-03-21 08:19] LABS: Basophils % 0.4 %; Eosinophils # 0.1 K/mcL (0.0-0.6); Eosinophils % 0.9 %; Hematocrit 38.1 % (35.3-44.9); Hemoglobin 12.2 g/dL (11.5-15.4); Immature Granulocytes % 0.3 % (0-4); Lymphocytes # 1.3 K/mcL (0.6-4.6); Lymphocytes % 12.8 %; Mean Corpuscular Hemoglobin 30.7 pg (28.0-33.3); Mean Platelet Volume 8.9 fL (9.4-12.4); Monocytes # 0.6 K/mcL (0.0-1.3); Monocytes % 5.4 %; Neutrophils # 8.3 K/mcL (1.6-8.9); Platelet Count 207 K/mcL (140-400); Red Blood Count 3.97 M/mcL (3.82-4.97); Segmented Neutrophils % 80.2 %; White Blood Count 10.4 K/mcL (4.3-11.1)
[2019-03-21 08:40] LABS: Alanine Aminotransferase 15 Units/L (7-52); Albumin 4.4 g/dL (3.5-5.7); Albumin/Globulin Ratio 1.6 (1.1-2.2); Alkaline Phosphatase 49 Units/L (34-104); Aspartate Amino Transferase 28 Units/L (13-39); BUN/Creatinine Ratio 22 (6-26); Bilirubin,Direct 0.1 mg/dL (0.0-0.2); Bilirubin,Indirect 0.4 mg/dL (0.0-1.2); Bilirubin,Total 0.5 mg/dL (0.3-1.0); Blood Urea Nitrogen 20 mg/dL (8-23); Calcium 9.6 mg/dL (8.6-10.3); Carbon Dioxide 28 mEq/L (23-29); Chloride 103 mEq/L (98-107); Globulin 2.7 g/dL (2.4-3.5); Glucose 121 mg/dL (70-105); Osmolality,Calculated 296 (280-300); Sodium 141 mEq/L (136-145); Total Protein 7.1 g/dL (6.4-8.9); Troponin I < 0.03 ng/mL (< 0.04); eGFR For African Americans > 60 (> 60); eGFR For Non-African Americans 58 (> 60)
[2019-03-21] MEDS ORDERED: Azithromycin 500 MG in D5% in Water 250 ML IVPB STA (08:55)
[2019-03-21] MEDS ORDERED: cefTRIAXone 1,000 MG in Water for inj. (sterile) 10 ML IVPB ONE (08:55)
[2019-03-21] MEDS ORDERED: Ipratropium/Albuterol Neb 3 ML IH ONE (08:59)
[2019-03-21 09:11] LABS: Bilirubin,Urine Negative (Negative); Blood,Urine Negative (Negative); Clarity,Urine Clear (Clear); Color,Urine Yellow (Yellow); Glucose,Urine (UA) Normal (Normal); Ketones,Urine Negative (Negative); Leukocyte Esterase,Urine Negative (Negative); Nitrite,Urine Negative (Negative); Protein,Urine Negative (Neg-Trace); Specific Gravity,Urine 1.015 (1.010-1.025); Urobilinogen,Urine Normal (Normal)
[2019-03-21] MEDS ORDERED: Ondansetron 4 MG/2 ML VIAL IVP PRN (10:22)
[2019-03-21] MEDS ORDERED: Naloxone 0.4 MG/ML INJ IVP PRN (10:22)
[2019-03-21] MEDS ORDERED: 0.9 % Sodium Chloride 1,000 ML IVC SCH (10:30)
[2019-03-21] MEDS: *HR* HYDROcodone/Acet 5/325 mg TABLET PO PRN ×2 (16:22→22:30)
[2019-03-21] MEDS ORDERED: Ipratropium/Albuterol Neb 3 ML IH STA (22:38)
[2019-03-21] MEDS ORDERED: Denosumab 60 MG/ML SYRINGE SQ SCH (22:45)
[2019-03-22] MEDS ORDERED: Ipratropium/Albuterol Neb 3 ML IH STA (05:37)
[2019-03-22 06:05] LABS: Basophils % 0.3 %; Eosinophils # 0.1 K/mcL (0.0-0.6); Eosinophils % 0.8 %; Hematocrit 34.7 % (35.3-44.9); Hemoglobin 11.1 g/dL (11.5-15.4); Immature Granulocytes % 0.4 % (0-4); Lymphocytes # 1.6 K/mcL (0.6-4.6); Lymphocytes % 12.3 %; Mean Corpuscular Hemoglobin 30.6 pg (28.0-33.3); Mean Corpuscular Volume 95.6 fL (83.0-100.0); Mean Platelet Volume 9.3 fL (9.4-12.4); Monocytes # 0.9 K/mcL (0.0-1.3); Monocytes % 6.6 %; Neutrophils # 10.5 K/mcL (1.6-8.9); Platelet Count 178 K/mcL (140-400); Red Blood Count 3.63 M/mcL (3.82-4.97); Red Cell Distribution Width 14.3 % (11.5-14.5); Segmented Neutrophils % 79.6 %; White Blood Count 13.1 K/mcL (4.3-11.1)
[2019-03-22 06:13] LABS: INR 1.2; Prothrombin Time 13.6 Seconds (9.4-12.1)
[2019-03-22 06:15] LABS: Activated Partial Thrombo Time 32.2 Seconds (26.0-36.0)
[2019-03-22 06:25] LABS: Alanine Aminotransferase 26 Units/L (7-52); Albumin 3.8 g/dL (3.5-5.7); Albumin/Globulin Ratio 1.5 (1.1-2.2); Alkaline Phosphatase 43 Units/L (34-104); Aspartate Amino Transferase 38 Units/L (13-39); BUN/Creatinine Ratio 17 (6-26); Bilirubin,Total 0.7 mg/dL (0.3-1.0); Blood Urea Nitrogen 12 mg/dL (8-23); Calcium 8.6 mg/dL (8.6-10.3); Carbon Dioxide 25 mEq/L (23-29); Chloride 105 mEq/L (98-107); Cholesterol 139 mg/dL (< 200); Globulin 2.5 g/dL (2.4-3.5); Glucose 122 mg/dL (70-105); HDL Cholesterol 71 mg/dL (40-59); LDL Cholesterol,Calculated 53 mg/dL (0-99); Magnesium 1.4 mg/dL (1.6-2.6); Osmolality,Calculated 289 (280-300); Phosphorous 1.9 mg/dL (2.7-4.5); Potassium 3.4 mEq/L (3.5-5.1); Sodium 139 mEq/L (136-145); Total Protein 6.3 g/dL (6.4-8.9); Triglycerides 75 mg/dL (< 150); eGFR For African Americans > 60 (> 60); eGFR For Non-African Americans > 60 (> 60)
[2019-03-22] MEDS: Cholecalciferol (D-3) 1,000 UNIT (25MCG) TABLET PO SCH (07:26)
[2019-03-22] MEDS: Loratadine 10 MG TABLET PO SCH (07:27)
[2019-03-22] MEDS: Aspirin Enteric Coated 81 MG Tablet PO SCH (07:27)
[2019-03-22] MEDS: cefTRIAXone 2,000 MG in Water for inj. (sterile) 20 ML IVP SCH (07:31)
[2019-03-22] MEDS ORDERED: *HR* Metoprolol 5 MG/5 ML VIAL IVP ONE ×2 (08:06→15:28)
[2019-03-22] MEDS: Magnesium Oxide 400 MG TABLET PO SCH (08:17)
[2019-03-22] MEDS ORDERED: Azithromycin 500 MG in 0.9 % Sodium Chloride 250 ML IVPB ONE (09:00)
[2019-03-22] MEDS: *HR* Enoxaparin 60 MG/0.6 ML SYRINGE SQ SCH ×2 (09:59→17:22)
[2019-03-22] MEDS ORDERED: Tiotropium 18 MCG inhalation IH SCH (10:00)
[2019-03-22] MEDS: Ipratropium/Albuterol Neb 3 ML IH SCH ×3 (10:34→21:56)
[2019-03-22] MEDS: Budesonide/Formoterol 80/4.5 1 PUFF INH IH SCH ×2 (10:34→21:55)
[2019-03-22] MEDS: Lactobacillus 1 EACH CAP.SPRINK PO SCH (12:19)
[2019-03-22] MEDS: Gabapentin 300 MG CAPSULE PO SCH (20:06)
[2019-03-23] MEDS: Ipratropium/Albuterol Neb 3 ML IH SCH ×2 (03:35→10:39)
[2019-03-23] MEDS: *HR* HYDROcodone/Acet 5/325 mg TABLET PO PRN ×3 (04:26→21:18)
[2019-03-23 05:18] LABS: Basophils % 0.3 %; Eosinophils # 0.1 K/mcL (0.0-0.6); Eosinophils % 1.3 %; Hematocrit 32.8 % (35.3-44.9); Hemoglobin 10.6 g/dL (11.5-15.4); Immature Granulocytes % 0.5 % (0-4); Lymphocytes % 18.8 %; Mean Corpuscular HGB Conc 32.3 g/dL (31.6-35.5); Mean Corpuscular Hemoglobin 30.6 pg (28.0-33.3); Mean Corpuscular Volume 94.8 fL (83.0-100.0); Mean Platelet Volume 9.2 fL (9.4-12.4); Neutrophils # 7.5 K/mcL (1.6-8.9); Platelet Count 182 K/mcL (140-400); Red Blood Count 3.46 M/mcL (3.82-4.97); Red Cell Distribution Width 14.1 % (11.5-14.5); Segmented Neutrophils % 70.1 %; White Blood Count 10.7 K/mcL (4.3-11.1)
[2019-03-23 05:27] LABS: INR 1.2; Prothrombin Time 13.2 Seconds (9.4-12.1)
[2019-03-23 05:39] LABS: BUN/Creatinine Ratio 13 (6-26); Blood Urea Nitrogen 10 mg/dL (8-23); Calcium 8.6 mg/dL (8.6-10.3); Carbon Dioxide 26 mEq/L (23-29); Chloride 103 mEq/L (98-107); Glucose 120 mg/dL (70-105); Magnesium 1.4 mg/dL (1.6-2.6); Osmolality,Calculated 288 (280-300); Phosphorous 2.2 mg/dL (2.7-4.5); Potassium 3.5 mEq/L (3.5-5.1); Sodium 139 mEq/L (136-145); eGFR For African Americans > 60 (> 60); eGFR For Non-African Americans > 60 (> 60)
[2019-03-23] MEDS: *HR* Enoxaparin 60 MG/0.6 ML SYRINGE SQ SCH (06:01)
[2019-03-23] MEDS: DilTIAZem 50 MG in 0.9 % Sodium Chloride 40 ML IVC SCH ×2 (07:30→08:33)
[2019-03-23] MEDS: cefTRIAXone 2,000 MG in Water for inj. (sterile) 20 ML IVP SCH (08:30)
[2019-03-23] MEDS: Loratadine 10 MG TABLET PO SCH (08:32)
[2019-03-23] MEDS: Cholecalciferol (D-3) 1,000 UNIT (25MCG) TABLET PO SCH (08:32)
[2019-03-23] MEDS: Magnesium Oxide 400 MG TABLET PO SCH (08:32)
[2019-03-23] MEDS: Aspirin Enteric Coated 81 MG Tablet PO SCH (08:32)
[2019-03-23] MEDS: Lactobacillus 1 EACH CAP.SPRINK PO SCH (08:32)
[2019-03-23] MEDS: Tiotropium 18 MCG inhalation IH SCH (09:40)
[2019-03-23] MEDS: Budesonide/Formoterol 80/4.5 1 PUFF INH IH SCH ×2 (10:38→19:59)
[2019-03-23] MEDS ORDERED: Magnesium Oxide 400 MG TABLET PO SCH (21:00)
[2019-03-23] MEDS: Apixaban 5 MG TABLET PO SCH (21:18)
[2019-03-23] MEDS: Gabapentin 300 MG CAPSULE PO SCH (21:18)
[2019-03-23] MEDS: Doxycycline 100 MG CAPSULE PO SCH (21:18)
[2019-03-24] MEDS: Ipratropium/Albuterol Neb 3 ML IH PRN ×2 (05:43→13:25)
[2019-03-24 07:17] LABS: Basophils % 0.3 %; Eosinophils # 0.1 K/mcL (0.0-0.6); Eosinophils % 1.2 %; Hematocrit 33.9 % (35.3-44.9); Hemoglobin 10.9 g/dL (11.5-15.4); Immature Granulocytes % 0.3 % (0-4); Lymphocytes # 1.8 K/mcL (0.6-4.6); Lymphocytes % 20.4 %; Mean Corpuscular HGB Conc 32.2 g/dL (31.6-35.5); Mean Corpuscular Hemoglobin 30.4 pg (28.0-33.3); Mean Corpuscular Volume 94.4 fL (83.0-100.0); Mean Platelet Volume 9.5 fL (9.4-12.4); Monocytes # 0.9 K/mcL (0.0-1.3); Monocytes % 10.2 %; Platelet Count 204 K/mcL (140-400); Red Blood Count 3.59 M/mcL (3.82-4.97); Red Cell Distribution Width 13.9 % (11.5-14.5); Segmented Neutrophils % 67.6 %; White Blood Count 8.9 K/mcL (4.3-11.1)
[2019-03-24] MEDS: Budesonide/Formoterol 80/4.5 1 PUFF INH IH SCH ×2 (07:27→19:59)
[2019-03-24] MEDS: Tiotropium 18 MCG inhalation IH SCH (07:28)
[2019-03-24 07:41] LABS: BUN/Creatinine Ratio 11 (6-26); Blood Urea Nitrogen 9 mg/dL (8-23); Calcium 8.5 mg/dL (8.6-10.3); Carbon Dioxide 28 mEq/L (23-29); Chloride 99 mEq/L (98-107); Glucose 110 mg/dL (70-105); Magnesium 1.5 mg/dL (1.6-2.6); Osmolality,Calculated 287 (280-300); Phosphorous 2.4 mg/dL (2.7-4.5); Potassium 3.2 mEq/L (3.5-5.1); Sodium 139 mEq/L (136-145); eGFR For African Americans > 60 (> 60); eGFR For Non-African Americans > 60 (> 60)
[2019-03-24] MEDS: Cholecalciferol (D-3) 1,000 UNIT (25MCG) TABLET PO SCH (08:36)
[2019-03-24] MEDS: Loratadine 10 MG TABLET PO SCH (08:36)
[2019-03-24] MEDS: Lactobacillus 1 EACH CAP.SPRINK PO SCH (08:36)
[2019-03-24] MEDS: Doxycycline 100 MG CAPSULE PO SCH ×2 (08:36→21:21)
[2019-03-24] MEDS: Apixaban 5 MG TABLET PO SCH ×2 (08:36→21:20)
[2019-03-24] MEDS: Aspirin Enteric Coated 81 MG Tablet PO SCH (08:39)
[2019-03-24] MEDS: *HR* HYDROcodone/Acet 5/325 mg TABLET PO PRN (08:55)
[2019-03-24] MEDS ORDERED: Magnesium Oxide 400 MG TABLET PO SCH (09:00)
[2019-03-24] MEDS: cefTRIAXone 2,000 MG in Water for inj. (sterile) 20 ML IVP SCH (09:01)
[2019-03-24] MEDS: predniSONE 20 MG TABLET PO SCH (15:09)
[2019-03-24] MEDS: Gabapentin 300 MG CAPSULE PO SCH (21:21)
[2019-03-25 06:19] LABS: Basophils % 0.1 %; Hematocrit 34.5 % (35.3-44.9); Hemoglobin 11.2 g/dL (11.5-15.4); Immature Granulocytes % 0.8 % (0-4); Lymphocytes # 1.1 K/mcL (0.6-4.6); Lymphocytes % 9.4 %; Mean Corpuscular HGB Conc 32.5 g/dL (31.6-35.5); Mean Corpuscular Hemoglobin 30.4 pg (28.0-33.3); Mean Corpuscular Volume 93.8 fL (83.0-100.0); Mean Platelet Volume 9.4 fL (9.4-12.4); Monocytes # 0.8 K/mcL (0.0-1.3); Monocytes % 7.1 %; Neutrophils # 9.6 K/mcL (1.6-8.9); Platelet Count 217 K/mcL (140-400); Red Blood Count 3.68 M/mcL (3.82-4.97); Red Cell Distribution Width 13.8 % (11.5-14.5); Segmented Neutrophils % 82.6 %; White Blood Count 11.6 K/mcL (4.3-11.1)
[2019-03-25 06:36] LABS: BUN/Creatinine Ratio 16 (6-26); Blood Urea Nitrogen 13 mg/dL (8-23); Calcium 8.7 mg/dL (8.6-10.3); Carbon Dioxide 23 mEq/L (23-29); Chloride 101 mEq/L (98-107); Glucose 209 mg/dL (70-105); Magnesium 2.1 mg/dL (1.6-2.6); Osmolality,Calculated 288 (280-300); Phosphorous 1.8 mg/dL (2.7-4.5); Potassium 3.9 mEq/L (3.5-5.1); Sodium 136 mEq/L (136-145); eGFR For African Americans > 60 (> 60); eGFR For Non-African Americans > 60 (> 60)
[2019-03-25] MEDS: Budesonide/Formoterol 80/4.5 1 PUFF INH IH SCH (08:05)
[2019-03-25] MEDS: Tiotropium 18 MCG inhalation IH SCH (08:05)
[2019-03-25] MEDS: Doxycycline 100 MG CAPSULE PO SCH (09:29)
[2019-03-25] MEDS: predniSONE 20 MG TABLET PO SCH (09:29)
[2019-03-25] MEDS: *HR* HYDROcodone/Acet 5/325 mg TABLET PO PRN ×2 (09:29→17:39)
[2019-03-25] MEDS: Cholecalciferol (D-3) 1,000 UNIT (25MCG) TABLET PO SCH (09:29)
[2019-03-25] MEDS: Apixaban 5 MG TABLET PO SCH (09:30)
[2019-03-25] MEDS: Aspirin Enteric Coated 81 MG Tablet PO SCH (09:30)
[2019-03-25] MEDS: Lactobacillus 1 EACH CAP.SPRINK PO SCH (09:30)
[2019-03-25] MEDS: Loratadine 10 MG TABLET PO SCH (09:30)
[2019-03-25] MEDS: cefTRIAXone 2,000 MG in Water for inj. (sterile) 20 ML IVP SCH (09:31)
[2019-03-25 15:40] VITALS: BP 167/91
[2019-03-25 16:42] LABS: Bilirubin,Urine Negative (Negative); Blood,Urine Small (Negative); Clarity,Urine Clear (Clear); Color,Urine Yellow (Yellow); Glucose,Urine (UA) Normal (Normal); Ketones,Urine Negative (Negative); Leukocyte Esterase,Urine Negative (Negative); Nitrite,Urine Negative (Negative); Protein,Urine 30 mg/dL (Neg-Trace); Specific Gravity,Urine 1.015 (1.010-1.025); Urobilinogen,Urine Normal (Normal)
[2019-03-25] MEDS: Ipratropium/Albuterol Neb 3 ML IH PRN (16:43)
[2019-03-25 16:47] LABS: Bacteria,Urine None Seen per hpf (None-Few); Hyaline Casts,Urine None Seen per lpf (None-Few); Squamous Epithelial Cell,Urine Many per lpf (None-Few); WBC,Urine 0-3 per hpf (0-3)
== END 2019-03-25 18:24 | disposition home or self-care (01) | DRG 195 ==
LOC: 3ANU 07:52 → EMEROOARM 07:52 → SUATTDRO 10:48 → 3ANU 12:40 → SUATTDRO 03-23 15:09
PROVIDERS: ADMIT Internal Medicine Nephrology; ATTEND Student in an Organized Health Care Education/Training Program

== ENCOUNTER 2019-07-11 11:02 | Observation (INO) ==
[2019-07-11] MEDS ORDERED: levoFLOXacin 750 MG/150 ML 750 MG/150 ML BAG IVPB ONE (11:14)
[2019-07-11] MEDS ORDERED: cefTRIAXone 1,000 MG in Water for inj. (sterile) 10 ML IVP ONE (11:14)
[2019-07-11] MEDS ORDERED: Ipratropium/Albuterol Neb 3 ML IH ONE (11:29)
[2019-07-11 11:37] LABS: Basophils # 0.1 K/mcL (0.0-0.2); Basophils % 0.4 %; Eosinophils # 0.1 K/mcL (0.0-0.6); Eosinophils % 0.6 %; Hematocrit 38.8 % (35.3-44.9); Hemoglobin 12.7 g/dL (11.5-15.4); Immature Granulocytes % 0.3 % (0-4); Lymphocytes % 15.7 %; Mean Corpuscular HGB Conc 32.7 g/dL (31.6-35.5); Mean Corpuscular Hemoglobin 30.5 pg (28.0-33.3); Mean Corpuscular Volume 93.3 fL (83.0-100.0); Mean Platelet Volume 9.4 fL (9.4-12.4); Monocytes # 1.3 K/mcL (0.0-1.3); Monocytes % 10.4 %; Neutrophils # 9.2 K/mcL (1.6-8.9); Platelet Count 255 K/mcL (140-400); Red Blood Count 4.16 M/mcL (3.82-4.97); Red Cell Distribution Width 14.2 % (11.5-14.5); Segmented Neutrophils % 72.6 %; White Blood Count 12.7 K/mcL (4.3-11.1)
[2019-07-11 11:41] LABS: INR 1.5; Prothrombin Time 16.7 Seconds (9.4-12.1)
[2019-07-11 11:43] LABS: Activated Partial Thrombo Time 39.3 Seconds (26.0-36.0)
[2019-07-11] MEDS: 0.9 % Sodium Chloride 1,000 ML IVC SCH ×2 (11:49→18:49)
[2019-07-11 11:58] LABS: Alanine Aminotransferase 12 Units/L (7-52); Albumin 4.3 g/dL (3.5-5.7); Albumin/Globulin Ratio 1.5 (1.1-2.2); Alkaline Phosphatase 55 Units/L (34-104); Aspartate Amino Transferase 23 Units/L (13-39); BUN/Creatinine Ratio 16 (6-26); Bilirubin,Direct 0.1 mg/dL (0.0-0.2); Bilirubin,Indirect 0.7 mg/dL (0.0-1.0); Bilirubin,Total 0.8 mg/dL (0.3-1.0); Blood Urea Nitrogen 14 mg/dL (8-23); Calcium 9.2 mg/dL (8.6-10.3); Carbon Dioxide 26 mEq/L (23-29); Chloride 101 mEq/L (98-107); Globulin 2.9 g/dL (2.4-3.5); Glucose 99 mg/dL (70-105); Magnesium 1.3 mg/dL (1.6-2.6); Osmolality,Calculated 281 (280-300); Potassium 3.6 mEq/L (3.5-5.1); Sodium 135 mEq/L (136-145); Total Protein 7.2 g/dL (6.4-8.9); Troponin I 0.03 ng/mL (< 0.04); eGFR For African Americans > 60 (> 60); eGFR For Non-African Americans > 60 (> 60)
[2019-07-11 12:12] LABS: Bilirubin,Urine Negative (Negative); Blood,Urine Trace (Negative); Clarity,Urine Clear (Clear); Color,Urine Yellow (Yellow); Glucose,Urine (UA) Normal (Normal); Ketones,Urine Negative (Negative); Leukocyte Esterase,Urine Moderate (Negative); Nitrite,Urine Negative (Negative); Protein,Urine Negative (Neg-Trace); Specific Gravity,Urine 1.017 (1.010-1.025); Urobilinogen,Urine Normal (Normal)
[2019-07-11 12:14] LABS: Bacteria,Urine None Seen per hpf (None-Few); Hyaline Casts,Urine None Seen per lpf (None-Few); Squamous Epithelial Cell,Urine Many per lpf (None-Few)
[2019-07-11] MEDS ORDERED: Naloxone 0.4 MG/ML INJ IVP PRN (14:02)
[2019-07-11] MEDS ORDERED: Ringers Solution, Lactated 1,000 ML IVC SCH (14:45)
[2019-07-11] MEDS: Levalbuterol Neb 0.63 MG/3 ML IH SCH ×2 (15:43→22:06)
[2019-07-11] MEDS ORDERED: MethylPREDNISolone 40 MG/ML VIAL IVP SCH (18:00)
[2019-07-11] MEDS: Acetaminophen 325 MG TABLET PO PRN (20:42)
[2019-07-11] MEDS: Apixaban 5 MG TABLET PO SCH (20:42)
[2019-07-11] MEDS: Gabapentin 400 MG CAPSULE PO SCH (20:42)
[2019-07-11] MEDS: Budesonide/Formoterol 80/4.5 1 PUFF INH IH SCH (22:06)
[2019-07-12 00:45] LABS: Basophils % 0.3 %; Eosinophils # 0.1 K/mcL (0.0-0.6); Eosinophils % 1.4 %; Hematocrit 31.9 % (35.3-44.9); Immature Granulocytes % 0.3 % (0-4); Lymphocytes # 1.8 K/mcL (0.6-4.6); Lymphocytes % 25.2 %; Mean Corpuscular HGB Conc 32.3 g/dL (31.6-35.5); Mean Corpuscular Hemoglobin 30.2 pg (28.0-33.3); Mean Corpuscular Volume 93.5 fL (83.0-100.0); Mean Platelet Volume 9.4 fL (9.4-12.4); Monocytes # 0.7 K/mcL (0.0-1.3); Monocytes % 9.6 %; Neutrophils # 4.6 K/mcL (1.6-8.9); Platelet Count 193 K/mcL (140-400); Red Blood Count 3.41 M/mcL (3.82-4.97); Red Cell Distribution Width 14.4 % (11.5-14.5); Segmented Neutrophils % 63.2 %; White Blood Count 7.3 K/mcL (4.3-11.1)
[2019-07-12 00:46] LABS: Hemoglobin 10.3 g/dL (11.5-15.4)
[2019-07-12 01:06] LABS: BUN/Creatinine Ratio 11 (6-26); Blood Urea Nitrogen 9 mg/dL (8-23); Carbon Dioxide 25 mEq/L (23-29); Chloride 109 mEq/L (98-107); Glucose 123 mg/dL (70-105); Magnesium 1.6 mg/dL (1.6-2.6); Osmolality,Calculated 288 (280-300); Phosphorous 1.8 mg/dL (2.7-4.5); Potassium 2.9 mEq/L (3.5-5.1); Sodium 139 mEq/L (136-145); eGFR For African Americans > 60 (> 60); eGFR For Non-African Americans > 60 (> 60)
[2019-07-12] MEDS: Levalbuterol Neb 0.63 MG/3 ML IH SCH ×2 (03:47→10:56)
[2019-07-12] MEDS ORDERED: levoFLOXacin 750 MG/150 ML 750 MG/150 ML BAG IVPB SCH (09:00)
[2019-07-12] MEDS: Apixaban 5 MG TABLET PO SCH ×2 (09:35→21:17)
[2019-07-12] MEDS: Cholecalciferol (D-3) 1,000 UNIT (25MCG) TABLET PO SCH (09:35)
[2019-07-12] MEDS: Aspirin Enteric Coated 81 MG Tablet PO SCH (09:35)
[2019-07-12] MEDS: Loratadine 10 MG TABLET PO SCH (09:36)
[2019-07-12] MEDS: predniSONE 20 MG TABLET PO SCH (09:36)
[2019-07-12] MEDS: Budesonide/Formoterol 80/4.5 1 PUFF INH IH SCH ×2 (10:56→22:35)
[2019-07-12] MEDS: Acetaminophen 325 MG TABLET PO PRN ×2 (11:45→21:17)
[2019-07-12] MEDS ORDERED: Levalbuterol Neb 0.63 MG/3 ML IH PRN (13:00)
[2019-07-12 14:30] LABS: Hematocrit 35.6 % (35.3-44.9); Hemoglobin 11.6 g/dL (11.5-15.4)
[2019-07-12] MEDS: Ipratropium/Albuterol Neb 3 ML IH SCH ×2 (16:09→22:35)
[2019-07-12] MEDS: Gabapentin 400 MG CAPSULE PO SCH (21:17)
[2019-07-12 22:00] LABS: Hematocrit 37.4 % (35.3-44.9); Hemoglobin 12.4 g/dL (11.5-15.4)
[2019-07-13] MEDS: Ipratropium/Albuterol Neb 3 ML IH SCH ×2 (04:02→10:37)
[2019-07-13 06:15] LABS: BUN/Creatinine Ratio 12 (6-26); Blood Urea Nitrogen 10 mg/dL (8-23); Calcium 8.4 mg/dL (8.6-10.3); Carbon Dioxide 27 mEq/L (23-29); Chloride 106 mEq/L (98-107); Glucose 125 mg/dL (70-105); Magnesium 1.9 mg/dL (1.6-2.6); Osmolality,Calculated 297 (280-300); Potassium 4.4 mEq/L (3.5-5.1); Sodium 143 mEq/L (136-145); eGFR For African Americans > 60 (> 60); eGFR For Non-African Americans > 60 (> 60)
[2019-07-13] MEDS: predniSONE 20 MG TABLET PO SCH (07:48)
[2019-07-13] MEDS: Aspirin Enteric Coated 81 MG Tablet PO SCH (07:48)
[2019-07-13] MEDS: Cholecalciferol (D-3) 1,000 UNIT (25MCG) TABLET PO SCH (07:48)
[2019-07-13] MEDS: Loratadine 10 MG TABLET PO SCH (07:48)
[2019-07-13] MEDS: Apixaban 5 MG TABLET PO SCH (07:48)
[2019-07-13] MEDS ORDERED: Lisinopril-HCTZ 20-12.5mg TABLET PO SCH (09:00)
[2019-07-13] MEDS: Budesonide/Formoterol 80/4.5 1 PUFF INH IH SCH (10:37)
[2019-07-13] MEDS: Acetaminophen 325 MG TABLET PO PRN (11:18)
[2019-07-13 12:06] VITALS: BP 138/71
[2019-07-14] MEDS ORDERED: levoFLOXacin 750 MG TABLET PO SCH ×2 (09:00→10:00)
[2019-07-14] MEDS ORDERED: levoFLOXacin 750 MG/150 ML 750 MG/150 ML BAG IVPB SCH (09:00)
== END 2019-07-13 12:03 | disposition home or self-care (01) ==
LOC: 3BNU 11:02 → EMEROOARM 11:02 → 3BNU 15:35
PROVIDERS: ADMIT Internal Medicine; ATTEND Internal Medicine

== ENCOUNTER 2020-06-18 14:06 | Inpatient (IN) ==
[2020-06-18] MEDS ORDERED: 0.9 % Sodium Chloride 1,000 ML IVC ONE ×2 (14:16→15:09)
[2020-06-18] MEDS ORDERED: Ipratropium/Albuterol Neb 3 ML IH ONE (14:34)
[2020-06-18 14:38] LABS: Basophils % 0.1 %; Hematocrit 37.4 % (35.3-44.9); Hemoglobin 11.5 g/dL (11.5-15.4); Immature Granulocytes % 0.4 % (0-4); Lymphocytes # 0.7 K/mcL (0.6-4.6); Mean Corpuscular HGB Conc 30.7 g/dL (31.6-35.5); Mean Corpuscular Hemoglobin 29.5 pg (28.0-33.3); Mean Corpuscular Volume 95.9 fL (83.0-100.0); Mean Platelet Volume 8.6 fL (9.4-12.4); Monocytes % 7.1 %; Neutrophils # 12.1 K/mcL (1.6-8.9); Nucleated Red Blood Cells 0.4 /100 WBC (0); Platelet Count 332 K/mcL (140-400); Red Cell Distribution Width 14.5 % (11.5-14.5); Segmented Neutrophils % 87.4 %; White Blood Count 13.9 K/mcL (4.3-11.1)
[2020-06-18 14:45] LABS: INR 1.3; Prothrombin Time 15.1 Seconds (9.4-12.1)
[2020-06-18 14:47] LABS: Activated Partial Thrombo Time 32.1 Seconds (26.0-36.0)
[2020-06-18] MEDS ORDERED: cefTRIAXone 1,000 MG in Water for inj. (sterile) 10 ML IVP ONE (15:08)
[2020-06-18] MEDS ORDERED: Azithromycin 500 MG in 0.9 % Sodium Chloride 250 ML IVPB ONE (15:08)
[2020-06-18 15:14] LABS: Albumin 4.2 g/dL (3.5-5.7); Albumin/Globulin Ratio 1.5 (1.1-2.2); Bilirubin,Direct 0.2 mg/dL (0.0-0.2); Bilirubin,Indirect 0.5 mg/dL (0.0-1.0); Bilirubin,Total 0.7 mg/dL (0.3-1.0); Calcium 9.4 mg/dL (8.6-10.3); Globulin 2.8 g/dL (2.4-3.5); Magnesium 1.2 mg/dL (1.6-2.6); Phosphorous 2.4 mg/dL (2.7-4.5); Potassium 4.1 mEq/L (3.5-5.1); Troponin I 0.54 ng/mL (< 0.04)
[2020-06-18] MEDS ORDERED: Aspirin 81 MG TAB.CHEW PO ONE (15:21)
[2020-06-18] MEDS ORDERED: Isovue-370 500 ML BOTTLE IVP ONE (15:22)
[2020-06-18] MEDS ORDERED: Aspirin 81 MG TAB.CHEW ONE (15:41)
[2020-06-18] MEDS ORDERED: Magnesium Sulfate 1 GM/102 ML PIGGYBACK IVPB ONE (16:59)
[2020-06-18] MEDS ORDERED: Naloxone 0.4 MG/ML INJ IVP PRN (17:11)
[2020-06-18] MEDS ORDERED: Ondansetron ODT 4 MG TAB.RAPDIS SL PRN (17:11)
[2020-06-18] MEDS ORDERED: *HR* Heparin 5,000 UNIT/ML VIAL IVP PRN ×2 (17:15)
[2020-06-18] MEDS ORDERED: *HR* Heparin 5,000 UNIT/ML VIAL IVP ONE (17:15)
[2020-06-18 17:41] LABS: Bilirubin,Urine Negative (Negative); Blood,Urine Negative (Negative); Clarity,Urine Clear (Clear); Color,Urine Light-Yellow (Yellow); Glucose,Urine (UA) Normal (Normal); Ketones,Urine Negative (Negative); Leukocyte Esterase,Urine Negative (Negative); Nitrite,Urine Negative (Negative); PH,Urine 5.5 pH Units (5.0-8.0); Protein,Urine Negative (Neg-Trace); Specific Gravity,Urine > 1.030 (1.010-1.025); Urobilinogen,Urine Normal (Normal)
[2020-06-18] MEDS ORDERED: Perflutren Lipid Microsphere 1.3 ML in 0.9 % Sodium Chloride 8.7 ML IVP PRN (17:46)
[2020-06-18] MEDS ORDERED: Nitroglycerin 0.4 MG TAB.SUBL SL PRN (17:54)
[2020-06-18] MEDS ORDERED: Morphine Sulfate 2 MG/ML SYRINGE IVP PRN (17:56)
[2020-06-18 18:32] LABS: Hematocrit 33.8 % (35.3-44.9); Hemoglobin 10.6 g/dL (11.5-15.4); Mean Corpuscular HGB Conc 31.4 g/dL (31.6-35.5); Mean Corpuscular Hemoglobin 30.1 pg (28.0-33.3); Mean Platelet Volume 8.4 fL (9.4-12.4); Platelet Count 297 K/mcL (140-400); Red Blood Count 3.52 M/mcL (3.82-4.97); Red Cell Distribution Width 14.6 % (11.5-14.5); White Blood Count 15.2 K/mcL (4.3-11.1)
[2020-06-18 18:39] LABS: Heparin anti-factor XA UFH 0.2 IU/mL (0.30-0.70)
[2020-06-18 18:40] LABS: INR 1.3; Prothrombin Time 14.9 Seconds (9.4-12.1)
[2020-06-18 18:50] LABS: Chol/HDL Ratio 1.8 (0-4.9)
[2020-06-18] MEDS: Ipratropium/Albuterol Neb 3 ML IH SCH ×2 (20:00→23:52)
[2020-06-18] MEDS ORDERED: 0.9 % Sodium Chloride 1,000 ML ONE (20:02)
[2020-06-18] MEDS: Metoprolol XL (24 HR) Succ 50 MG TAB.ER.24H PO SCH (20:04)
[2020-06-18] MEDS: Heparin 25,000UNIT/250ML 1/2NS 25,000 UNIT/250 ML IV.SOLN IVC SCH (20:41)
[2020-06-18] MEDS: Gabapentin 400 MG CAPSULE PO SCH (20:57)
[2020-06-18] MEDS: predniSONE 20 MG TABLET PO SCH (20:57)
[2020-06-18] MEDS: Acetaminophen 325 MG TABLET PO PRN (20:57)
[2020-06-19 03:25] LABS: Hematocrit 32.4 % (35.3-44.9); Hemoglobin 10.1 g/dL (11.5-15.4); Mean Corpuscular HGB Conc 31.2 g/dL (31.6-35.5); Mean Corpuscular Hemoglobin 30.4 pg (28.0-33.3); Mean Corpuscular Volume 97.6 fL (83.0-100.0); Mean Platelet Volume 8.8 fL (9.4-12.4); Platelet Count 273 K/mcL (140-400); Red Blood Count 3.32 M/mcL (3.82-4.97); Red Cell Distribution Width 14.6 % (11.5-14.5); White Blood Count 16.1 K/mcL (4.3-11.1)
[2020-06-19] MEDS: Ipratropium/Albuterol Neb 3 ML IH SCH ×6 (03:42→23:19)
[2020-06-19 03:47] LABS: BUN/Creatinine Ratio 23 (6-26); Blood Urea Nitrogen 18 mg/dL (8-23); Calcium 8.4 mg/dL (8.6-10.3); Carbon Dioxide 22 mEq/L (23-29); Chloride 108 mEq/L (98-107); Glucose 158 mg/dL (70-105); Osmolality,Calculated 287 (280-300); Phosphorous 2.3 mg/dL (2.7-4.5); Sodium 136 mEq/L (136-145); eGFR For African Americans > 60 (> 60); eGFR For Non-African Americans > 60 (> 60)
[2020-06-19 08:25] LABS: Estimated Average Glucose 134 mg/dl
[2020-06-19] MEDS ORDERED: cefTRIAXone 2,000 MG in Water for inj. (sterile) 20 ML IVP SCH (09:00)
[2020-06-19] MEDS ORDERED: Morphine Sulfate 2 MG/ML SYRINGE IVP PRN (09:17)
[2020-06-19] MEDS: Azithromycin 500 MG in 0.9 % Sodium Chloride 250 ML IVPB SCH (10:19)
[2020-06-19] MEDS: Aspirin 81 MG TAB.CHEW PO SCH (10:19)
[2020-06-19] MEDS: Lisinopril-HCTZ 20-12.5mg TABLET PO SCH (10:19)
[2020-06-19] MEDS: predniSONE 20 MG TABLET PO SCH (10:19)
[2020-06-19] MEDS: Acetaminophen 325 MG TABLET PO PRN ×2 (10:27→16:47)
[2020-06-19] MEDS: Metoprolol XL (24 HR) Succ 50 MG TAB.ER.24H PO SCH (10:27)
[2020-06-19] MEDS: cefTRIAXone 2,000 MG in 0.9 % Sodium Chloride Mini Bag 100 ML IVP SCH (15:33)
[2020-06-19] MEDS ORDERED: GuaiFENesin Liq 200 MG/10 ML UDC PO PRN (17:39)
[2020-06-19] MEDS: Heparin 25,000UNIT/250ML 1/2NS 25,000 UNIT/250 ML IV.SOLN IVC SCH (17:56)
[2020-06-19] MEDS: Gabapentin 400 MG CAPSULE PO SCH (20:33)
[2020-06-20] MEDS: Ipratropium/Albuterol Neb 3 ML IH SCH ×6 (04:00→23:57)
[2020-06-20 04:16] LABS: Hematocrit 31.1 % (35.3-44.9); Hemoglobin 9.7 g/dL (11.5-15.4); Mean Corpuscular HGB Conc 31.2 g/dL (31.6-35.5); Mean Corpuscular Hemoglobin 30.2 pg (28.0-33.3); Mean Corpuscular Volume 96.9 fL (83.0-100.0); Platelet Count 282 K/mcL (140-400); Red Blood Count 3.21 M/mcL (3.82-4.97); Red Cell Distribution Width 14.7 % (11.5-14.5); White Blood Count 14.9 K/mcL (4.3-11.1)
[2020-06-20 04:35] LABS: BUN/Creatinine Ratio 22 (6-26); Blood Urea Nitrogen 17 mg/dL (8-23); Calcium 8.2 mg/dL (8.6-10.3); Carbon Dioxide 23 mEq/L (23-29); Chloride 107 mEq/L (98-107); Glucose 117 mg/dL (70-105); Osmolality,Calculated 287 (280-300); Phosphorous 2.1 mg/dL (2.7-4.5); Potassium 3.8 mEq/L (3.5-5.1); Sodium 137 mEq/L (136-145); eGFR For African Americans > 60 (> 60); eGFR For Non-African Americans > 60 (> 60)
[2020-06-20] MEDS: Azithromycin 500 MG in 0.9 % Sodium Chloride 250 ML IVPB SCH (07:54)
[2020-06-20] MEDS: Aspirin 81 MG TAB.CHEW PO SCH (07:59)
[2020-06-20] MEDS: predniSONE 20 MG TABLET PO SCH (07:59)
[2020-06-20] MEDS: Lisinopril-HCTZ 20-12.5mg TABLET PO SCH (07:59)
[2020-06-20] MEDS: Metoprolol XL (24 HR) Succ 50 MG TAB.ER.24H PO SCH (07:59)
[2020-06-20] MEDS: Heparin 25,000UNIT/250ML 1/2NS 25,000 UNIT/250 ML IV.SOLN IVC SCH (10:17)
[2020-06-20] MEDS: cefTRIAXone 2,000 MG in 0.9 % Sodium Chloride Mini Bag 100 ML IVP SCH (15:23)
[2020-06-20] MEDS: Gabapentin 400 MG CAPSULE PO SCH (20:35)
[2020-06-21 00:51] LABS: Hematocrit 29.3 % (35.3-44.9); Hemoglobin 9.2 g/dL (11.5-15.4); Mean Corpuscular HGB Conc 31.4 g/dL (31.6-35.5); Mean Corpuscular Hemoglobin 30.4 pg (28.0-33.3); Mean Corpuscular Volume 96.7 fL (83.0-100.0); Platelet Count 269 K/mcL (140-400); Red Blood Count 3.03 M/mcL (3.82-4.97); Red Cell Distribution Width 14.6 % (11.5-14.5); White Blood Count 12.1 K/mcL (4.3-11.1)
[2020-06-21] MEDS: Ipratropium/Albuterol Neb 3 ML IH SCH ×6 (04:23→23:30)
[2020-06-21] MEDS: Aspirin 81 MG TAB.CHEW PO SCH (09:42)
[2020-06-21] MEDS: predniSONE 20 MG TABLET PO SCH (09:43)
[2020-06-21] MEDS: Metoprolol XL (24 HR) Succ 50 MG TAB.ER.24H PO SCH (09:43)
[2020-06-21] MEDS: Lisinopril-HCTZ 20-12.5mg TABLET PO SCH (09:43)
[2020-06-21] MEDS: Azithromycin 250 MG TABLET PO SCH (09:43)
[2020-06-21] MEDS: Acetaminophen 325 MG TABLET PO PRN (09:52)
[2020-06-21] MEDS ORDERED: hydrOXYzine pamoate 25 MG CAPSULE PO PRN (10:12)
[2020-06-21] MEDS: Apixaban 2.5 MG TABLET PO SCH ×2 (13:10→21:27)
[2020-06-21] MEDS: cefTRIAXone 2,000 MG in 0.9 % Sodium Chloride Mini Bag 100 ML IVP SCH (17:07)
[2020-06-21] MEDS: Gabapentin 400 MG CAPSULE PO SCH (21:27)
[2020-06-22] MEDS: Ipratropium/Albuterol Neb 3 ML IH SCH ×2 (03:41→07:44)
[2020-06-22 06:06] LABS: Hematocrit 30.1 % (35.3-44.9); Hemoglobin 9.5 g/dL (11.5-15.4); Mean Corpuscular HGB Conc 31.6 g/dL (31.6-35.5); Mean Platelet Volume 8.9 fL (9.4-12.4); Platelet Count 282 K/mcL (140-400); Red Blood Count 3.17 M/mcL (3.82-4.97); Red Cell Distribution Width 14.3 % (11.5-14.5); White Blood Count 10.1 K/mcL (4.3-11.1)
[2020-06-22 06:23] LABS: BUN/Creatinine Ratio 21 (6-26); Blood Urea Nitrogen 14 mg/dL (8-23); Calcium 8.7 mg/dL (8.6-10.3); Carbon Dioxide 26 mEq/L (23-29); Chloride 104 mEq/L (98-107); Glucose 96 mg/dL (70-105); Osmolality,Calculated 286 (280-300); Potassium 3.7 mEq/L (3.5-5.1); Sodium 138 mEq/L (136-145); eGFR For African Americans > 60 (> 60); eGFR For Non-African Americans > 60 (> 60)
[2020-06-22 07:08] VITALS: BP 128/70
[2020-06-22] MEDS: Azithromycin 250 MG TABLET PO SCH (08:09)
[2020-06-22] MEDS: Apixaban 2.5 MG TABLET PO SCH (08:09)
[2020-06-22] MEDS: Lisinopril-HCTZ 20-12.5mg TABLET PO SCH (08:09)
[2020-06-22] MEDS: Aspirin 81 MG TAB.CHEW PO SCH (08:09)
[2020-06-22] MEDS: Metoprolol XL (24 HR) Succ 50 MG TAB.ER.24H PO SCH (08:09)
[2020-06-22] MEDS: predniSONE 20 MG TABLET PO SCH (08:09)
== END 2020-06-22 10:15 | disposition home or self-care (01) | DRG 871 ==
LOC: 3ANU 14:06 → EMEROOARM 14:06 → 3ANU 18:22
PROVIDERS: ADMIT Student in an Organized Health Care Education/Training Program; ATTEND Student in an Organized Health Care Education/Training Program

== ENCOUNTER 2020-06-25 14:40 | Observation (INO) ==
[2020-06-25 16:27] LABS: Basophils # 0.1 K/mcL (0.0-0.2); Basophils % 0.6 %; Eosinophils # 0.4 K/mcL (0.0-0.6); Eosinophils % 3.8 %; Hematocrit 35.6 % (35.3-44.9); Lymphocytes # 2.7 K/mcL (0.6-4.6); Lymphocytes % 25.1 %; Mean Corpuscular HGB Conc 31.5 g/dL (31.6-35.5); Mean Corpuscular Hemoglobin 29.6 pg (28.0-33.3); Mean Corpuscular Volume 93.9 fL (83.0-100.0); Mean Platelet Volume 8.6 fL (9.4-12.4); Monocytes # 1.3 K/mcL (0.0-1.3); Monocytes % 11.7 %; Platelet Count 315 K/mcL (140-400); Red Blood Count 3.79 M/mcL (3.82-4.97); Red Cell Distribution Width 14.3 % (11.5-14.5); Segmented Neutrophils % 55.8 %; White Blood Count 10.7 K/mcL (4.3-11.1)
[2020-06-25 16:28] LABS: Hemoglobin 11.2 g/dL (11.5-15.4)
[2020-06-25 16:32] LABS: INR 1.4; Prothrombin Time 15.8 Seconds (9.4-12.1)
[2020-06-25 16:34] LABS: Activated Partial Thrombo Time 36.7 Seconds (26.0-36.0)
[2020-06-25] MEDS ORDERED: *HR* Labetalol 20 MG/4 ML SYRINGE IVP ONE (16:45)
[2020-06-25 16:48] LABS: BUN/Creatinine Ratio 15 (6-26); Blood Urea Nitrogen 13 mg/dL (8-23); Calcium 10.1 mg/dL (8.6-10.3); Carbon Dioxide 32 mEq/L (23-29); Chloride 99 mEq/L (98-107); Glucose 100 mg/dL (70-105); Osmolality,Calculated 286 (280-300); Sodium 138 mEq/L (136-145); eGFR For African Americans > 60 (> 60); eGFR For Non-African Americans > 60 (> 60)
[2020-06-25 17:12] LABS: Troponin I 0.04 ng/mL (< 0.04)
[2020-06-25] MEDS ORDERED: Aspirin 325 MG TABLET PO ONE (17:27)
[2020-06-25] MEDS ORDERED: Morphine Sulfate 2 MG/ML SYRINGE IVP ONE (17:27)
[2020-06-25] MEDS ORDERED: Ondansetron 4 MG/2 ML VIAL IVP PRN (18:56)
[2020-06-25] MEDS ORDERED: Naloxone 0.4 MG/ML INJ IVP PRN (18:56)
[2020-06-25] MEDS ORDERED: *HR* Heparin 5,000 UNIT/ML VIAL IVP ONE (19:10)
[2020-06-25] MEDS ORDERED: *HR* Heparin 5,000 UNIT/ML VIAL IVP PRN ×2 (19:10)
[2020-06-25] MEDS ORDERED: Nitroglycerin 0.4 MG TAB.SUBL SL PRN (19:12)
[2020-06-25] MEDS ORDERED: Heparin 25,000UNIT/250ML 1/2NS 25,000 UNIT/250 ML IV.SOLN IVC SCH (19:15)
[2020-06-25] MEDS ORDERED: Nitroglycerin 1 INCH/GM PACKET TP ONE (19:22)
[2020-06-25] MEDS ORDERED: Ipratropium/Albuterol Neb 3 ML IH PRN (19:30)
[2020-06-25] MEDS: Gabapentin 400 MG CAPSULE PO SCH (20:07)
[2020-06-25 21:37] LABS: Heparin anti-factor XA UFH 0.49 IU/mL (0.30-0.70)
[2020-06-25 21:38] LABS: INR 1.4; Prothrombin Time 15.6 Seconds (9.4-12.1)
[2020-06-25] MEDS: Budesonide/Formoterol 160/4.5 1 PUFF INH IH SCH (21:38)
[2020-06-25 21:39] LABS: Hematocrit 34.6 % (35.3-44.9); Mean Corpuscular HGB Conc 31.8 g/dL (31.6-35.5); Mean Corpuscular Hemoglobin 29.5 pg (28.0-33.3); Mean Corpuscular Volume 92.8 fL (83.0-100.0); Platelet Count 306 K/mcL (140-400); Red Blood Count 3.73 M/mcL (3.82-4.97); Red Cell Distribution Width 14.1 % (11.5-14.5); White Blood Count 9.7 K/mcL (4.3-11.1)
[2020-06-26 03:38] LABS: Hematocrit 35.7 % (35.3-44.9); Hemoglobin 11.4 g/dL (11.5-15.4); Mean Corpuscular HGB Conc 31.9 g/dL (31.6-35.5); Mean Corpuscular Hemoglobin 30.2 pg (28.0-33.3); Mean Corpuscular Volume 94.7 fL (83.0-100.0); Mean Platelet Volume 8.8 fL (9.4-12.4); Platelet Count 306 K/mcL (140-400); Red Blood Count 3.77 M/mcL (3.82-4.97); Red Cell Distribution Width 14.3 % (11.5-14.5); White Blood Count 10.7 K/mcL (4.3-11.1)
[2020-06-26 03:52] LABS: BUN/Creatinine Ratio 16 (6-26); Blood Urea Nitrogen 14 mg/dL (8-23); Calcium 9.6 mg/dL (8.6-10.3); Carbon Dioxide 30 mEq/L (23-29); Chloride 100 mEq/L (98-107); Glucose 98 mg/dL (70-105); Osmolality,Calculated 282 (280-300); Potassium 3.8 mEq/L (3.5-5.1); Sodium 136 mEq/L (136-145); eGFR For African Americans > 60 (> 60); eGFR For Non-African Americans > 60 (> 60)
[2020-06-26] MEDS: Pantoprazole 40 MG VIAL IVP SCH ×2 (04:08→16:51)
[2020-06-26] MEDS: Loratadine 10 MG TABLET PO SCH (07:23)
[2020-06-26] MEDS: Aspirin 81 MG TAB.CHEW PO SCH (07:23)
[2020-06-26] MEDS: Tiotropium 18 MCG inhalation IH SCH (08:00)
[2020-06-26] MEDS: Budesonide/Formoterol 160/4.5 1 PUFF INH IH SCH ×2 (08:00→22:30)
[2020-06-26 08:29] LABS: Magnesium 1.2 mg/dL (1.6-2.6)
[2020-06-26] MEDS ORDERED: Lisinopril-HCTZ 20-12.5mg TABLET PO SCH (09:00)
[2020-06-26] MEDS: Apixaban 2.5 MG TABLET PO SCH ×2 (13:50→22:41)
[2020-06-26] MEDS: carvediloL 6.25 MG TABLET PO SCH (16:42)
[2020-06-26] MEDS: Gabapentin 400 MG CAPSULE PO SCH (20:20)
[2020-06-27 01:27] LABS: Calcium 9.1 mg/dL (8.6-10.3); Magnesium 1.8 mg/dL (1.6-2.6); Phosphorous 2.9 mg/dL (2.7-4.5); Potassium 3.6 mEq/L (3.5-5.1)
[2020-06-27] MEDS: Pantoprazole 40 MG VIAL IVP SCH (05:28)
[2020-06-27] MEDS: carvediloL 6.25 MG TABLET PO SCH (07:16)
[2020-06-27] MEDS: Aspirin 81 MG TAB.CHEW PO SCH (07:20)
[2020-06-27] MEDS: Loratadine 10 MG TABLET PO SCH (07:21)
[2020-06-27] MEDS: Apixaban 2.5 MG TABLET PO SCH (07:21)
[2020-06-27] MEDS: Budesonide/Formoterol 160/4.5 1 PUFF INH IH SCH (09:54)
[2020-06-27] MEDS: Tiotropium 18 MCG inhalation IH SCH (09:55)
[2020-06-27 10:23] VITALS: BP 110/62
== END 2020-06-27 12:47 | disposition home or self-care (01) ==
LOC: 3BNU 14:40 → EMEROOARM 14:40 → SUATTDRO 18:34 → 3BNU 19:29
PROVIDERS: ADMIT Internal Medicine; ATTEND Internal Medicine

== ENCOUNTER 2020-06-28 10:45 | Observation (INO) ==
[2020-06-28] MEDS ORDERED: Acetaminophen 325 MG TABLET PO ONE (11:59)
[2020-06-28] MEDS ORDERED: *HR* HYDROmorphone (PF) 1 MG/ML SYRINGE IVP ONE (11:59)
[2020-06-28 12:00] LABS: Bilirubin,Urine Negative (Negative); Blood,Urine Trace (Negative); Clarity,Urine Clear (Clear); Color,Urine Yellow (Yellow); Glucose,Urine (UA) Normal (Normal); Hyaline Casts,Urine Few per lpf (None Seen); Ketones,Urine Negative (Negative); Leukocyte Esterase,Urine Negative (Negative); Mucus,Urine Few per lpf (None-Few); Nitrite,Urine Negative (Negative); Protein,Urine 50 mg/dL (Neg-Trace); Specific Gravity,Urine 1.022 (1.010-1.025); Squamous Epithelial Cell,Urine Few per hpf (None-Few); WBC,Urine 0-3 per hpf (0-3)
[2020-06-28] MEDS ORDERED: 0.9 % Sodium Chloride 500 ML IVC ONE (12:00)
[2020-06-28 12:40] LABS: INR 1.9; Prothrombin Time 21.2 Seconds (9.4-12.1)
[2020-06-28 12:42] LABS: Basophils # 0.1 K/mcL (0.0-0.2); Basophils % 0.3 %; Hematocrit 36.7 % (35.3-44.9); Hemoglobin 11.7 g/dL (11.5-15.4); Immature Granulocytes % 0.9 % (0-4); Lymphocytes # 1.7 K/mcL (0.6-4.6); Lymphocytes % 7.7 %; Mean Corpuscular HGB Conc 31.9 g/dL (31.6-35.5); Mean Corpuscular Hemoglobin 29.6 pg (28.0-33.3); Mean Corpuscular Volume 92.9 fL (83.0-100.0); Mean Platelet Volume 9.1 fL (9.4-12.4); Monocytes # 2.5 K/mcL (0.0-1.3); Neutrophils # 17.9 K/mcL (1.6-8.9); Platelet Count 304 K/mcL (140-400); Red Blood Count 3.95 M/mcL (3.82-4.97); Red Cell Distribution Width 14.3 % (11.5-14.5); Segmented Neutrophils % 80.1 %
[2020-06-28 12:43] LABS: Activated Partial Thrombo Time 37.7 Seconds (26.0-36.0); White Blood Count 22.4 K/mcL (4.3-11.1)
[2020-06-28] MEDS ORDERED: Cefepime HCl 1,000 MG in 0.9 % Sodium Chloride Mini Bag 100 ML IVPB ONE (12:52)
[2020-06-28 13:23] LABS: Alanine Aminotransferase 18 Units/L (7-52); Albumin/Globulin Ratio 1.1 (1.1-2.2); Alkaline Phosphatase 61 Units/L (34-104); Aspartate Amino Transferase 28 Units/L (13-39); BUN/Creatinine Ratio 21 (6-26); Bilirubin,Total 1.4 mg/dL (0.3-1.0); Blood Urea Nitrogen 22 mg/dL (8-23); Calcium 9.7 mg/dL (8.6-10.3); Carbon Dioxide 24 mEq/L (23-29); Chloride 96 mEq/L (98-107); Globulin 3.5 g/dL (2.4-3.5); Glucose 115 mg/dL (70-105); Osmolality,Calculated 276 (280-300); Potassium 3.8 mEq/L (3.5-5.1); Sodium 131 mEq/L (136-145); Total Protein 7.5 g/dL (6.4-8.9); Troponin I < 0.03 ng/mL (< 0.04); eGFR For African Americans 59 (> 60); eGFR For Non-African Americans 49 (> 60)
[2020-06-28] MEDS ORDERED: Naloxone 0.4 MG/ML INJ IVP PRN (13:58)
[2020-06-28] MEDS ORDERED: Nitroglycerin 0.4 MG TAB.SUBL SL PRN (14:00)
[2020-06-28] MEDS ORDERED: Dextrose Gel 15 GM/37.5 ML TUBE PO PRN ×2 (14:30)
[2020-06-28] MEDS ORDERED: D5% in Water 1,000 ML IVC PRN (14:30)
[2020-06-28] MEDS ORDERED: *HR* Dextrose 50 % in Water (Vial) 50 ML VIAL IVP PRN (14:30)
[2020-06-28] MEDS ORDERED: 0.9 % Sodium Chloride 1,000 ML IVC SCH (14:45)
[2020-06-28] MEDS: carvediloL 6.25 MG TABLET PO SCH (17:44)
[2020-06-28] MEDS: Insulin LISPRO 300 UNITS/3 ML VIAL SQ SCH ×2 (18:35→21:19)
[2020-06-28] MEDS: Budesonide/Formoterol 160/4.5 1 PUFF INH IH SCH (20:09)
[2020-06-28] MEDS: Cefepime HCl 1,000 MG in Water for inj. (sterile) 10 ML IVP SCH (21:17)
[2020-06-28] MEDS: Gabapentin 300 MG CAPSULE PO SCH (21:18)
[2020-06-28] MEDS: Apixaban 2.5 MG TABLET PO SCH (21:18)
[2020-06-28] MEDS ORDERED: *HR* OxyCODONE/APAP 7.5/325 TABLET PO ONE (22:56)
[2020-06-29] MEDS: Cefepime HCl 1,000 MG in Water for inj. (sterile) 10 ML IVP SCH ×3 (04:53→21:33)
[2020-06-29] MEDS ORDERED: Acetaminophen 325 MG TABLET PO ONE (05:15)
[2020-06-29 06:29] LABS: Basophils % 0.2 %; Hematocrit 32.8 % (35.3-44.9); Hemoglobin 10.5 g/dL (11.5-15.4); Immature Granulocytes % 0.7 % (0-4); Lymphocytes # 1.9 K/mcL (0.6-4.6); Lymphocytes % 9.5 %; Mean Corpuscular Hemoglobin 30.3 pg (28.0-33.3); Mean Corpuscular Volume 94.8 fL (83.0-100.0); Mean Platelet Volume 9.4 fL (9.4-12.4); Monocytes # 1.9 K/mcL (0.0-1.3); Monocytes % 9.8 %; Neutrophils # 15.6 K/mcL (1.6-8.9); Platelet Count 257 K/mcL (140-400); Red Blood Count 3.46 M/mcL (3.82-4.97); Red Cell Distribution Width 14.6 % (11.5-14.5); Segmented Neutrophils % 79.8 %; White Blood Count 19.6 K/mcL (4.3-11.1)
[2020-06-29 06:53] LABS: BUN/Creatinine Ratio 24 (6-26); Blood Urea Nitrogen 24 mg/dL (8-23); Calcium 8.7 mg/dL (8.6-10.3); Carbon Dioxide 25 mEq/L (23-29); Chloride 101 mEq/L (98-107); Glucose 111 mg/dL (70-105); Magnesium 1.7 mg/dL (1.6-2.6); Osmolality,Calculated 287 (280-300); Phosphorous 2.6 mg/dL (2.7-4.5); Potassium 4.2 mEq/L (3.5-5.1); Sodium 136 mEq/L (136-145); eGFR For African Americans > 60 (> 60); eGFR For Non-African Americans 53 (> 60)
[2020-06-29] MEDS: Budesonide/Formoterol 160/4.5 1 PUFF INH IH SCH ×2 (07:48→20:29)
[2020-06-29] MEDS: Ipratropium/Albuterol Neb 3 ML IH PRN ×4 (07:51→20:29)
[2020-06-29] MEDS: Insulin LISPRO 300 UNITS/3 ML VIAL SQ SCH ×4 (08:44→21:38)
[2020-06-29] MEDS: carvediloL 6.25 MG TABLET PO SCH ×2 (08:49→16:57)
[2020-06-29] MEDS: Cholecalciferol (D-3) 1,000 UNIT (25MCG) TABLET PO SCH (08:50)
[2020-06-29] MEDS: Loratadine 10 MG TABLET PO SCH (08:52)
[2020-06-29] MEDS: lisinopriL 5 MG TABLET PO SCH (08:52)
[2020-06-29] MEDS: Apixaban 2.5 MG TABLET PO SCH ×2 (08:52→21:31)
[2020-06-29] MEDS: Aspirin 81 MG TAB.CHEW PO SCH (08:52)
[2020-06-29 09:02] LABS: Alanine Aminotransferase 16 Units/L (7-52); Albumin 3.5 g/dL (3.5-5.7); Albumin/Globulin Ratio 1.2 (1.1-2.2); Alkaline Phosphatase 58 Units/L (34-104); Aspartate Amino Transferase 27 Units/L (13-39); Bilirubin,Direct 0.3 mg/dL (0.0-0.2); Bilirubin,Indirect 0.8 mg/dL (0.0-1.0); Bilirubin,Total 1.1 mg/dL (0.3-1.0); Total Protein 6.5 g/dL (6.4-8.9)
[2020-06-29] MEDS: Tiotropium 18 MCG inhalation IH SCH (11:22)
[2020-06-29] MEDS ORDERED: Ibuprofen 400 MG TABLET PO ONE (16:12)
[2020-06-29] MEDS: Gabapentin 300 MG CAPSULE PO SCH (21:33)
[2020-06-30] MEDS: Cefepime HCl 1,000 MG in Water for inj. (sterile) 10 ML IVP SCH (05:16)
[2020-06-30] MEDS: Ipratropium/Albuterol Neb 3 ML IH PRN ×4 (05:22→23:55)
[2020-06-30] MEDS ORDERED: Regadenoson 0.4 MG/5 ML SYRINGE IVP ONE (06:03)
[2020-06-30 07:15] LABS: Basophils % 0.3 %; Eosinophils # 0.2 K/mcL (0.0-0.6); Eosinophils % 1.5 %; Hematocrit 29.5 % (35.3-44.9); Hemoglobin 9.1 g/dL (11.5-15.4); Immature Granulocytes % 0.6 % (0-4); Lymphocytes # 1.5 K/mcL (0.6-4.6); Lymphocytes % 11.8 %; Mean Corpuscular HGB Conc 30.8 g/dL (31.6-35.5); Mean Corpuscular Hemoglobin 29.4 pg (28.0-33.3); Mean Corpuscular Volume 95.2 fL (83.0-100.0); Mean Platelet Volume 9.4 fL (9.4-12.4); Monocytes # 1.2 K/mcL (0.0-1.3); Monocytes % 9.3 %; Neutrophils # 9.8 K/mcL (1.6-8.9); Platelet Count 272 K/mcL (140-400); Red Cell Distribution Width 14.5 % (11.5-14.5); Segmented Neutrophils % 76.5 %; White Blood Count 12.8 K/mcL (4.3-11.1)
[2020-06-30 07:31] LABS: BUN/Creatinine Ratio 26 (6-26); Blood Urea Nitrogen 25 mg/dL (8-23); Calcium 8.3 mg/dL (8.6-10.3); Carbon Dioxide 26 mEq/L (23-29); Chloride 102 mEq/L (98-107); Glucose 104 mg/dL (70-105); Osmolality,Calculated 283 (280-300); Potassium 3.7 mEq/L (3.5-5.1); Sodium 134 mEq/L (136-145); eGFR For African Americans > 60 (> 60); eGFR For Non-African Americans 56 (> 60)
[2020-06-30] MEDS: Insulin LISPRO 300 UNITS/3 ML VIAL SQ SCH ×4 (08:56→22:49)
[2020-06-30 08:57] LABS: Acinetobacter baumannii by PCR Not Detected (Not Detect); Candida albicans by PCR Not Detected (Not Detect); Candida glabrata by PCR Not Detected (Not Detect); Candida krusei by PCR Not Detected (Not Detect); Candida parapsilosis by PCR Not Detected (Not Detect); Candida tropicalis by PCR Not Detected (Not Detect); Enterobacter cloacae Cmplx PCR Not Detected (Not Detect); Enterobacteriaceae by PCR Not Detected (Not Detect); Enterococcus by PCR Not Detected (Not Detect); Escherichia coli by PCR Not Detected (Not Detect); Klebsiella oxytoca by PCR Not Detected (Not Detect); Klebsiella pneumoniae by PCR Not Detected (Not Detect); Proteus by PCR Not Detected (Not Detect); Pseudomonas aeruginosa by PCR Not Detected (Not Detect); Serratia marcescens by PCR Not Detected (Not Detect); Staphylococcus aureus by PCR Not Detected (Not Detect); Staphylococcus by PCR Not Detected (Not Detect); Streptococcus agalactiae(B)PCR Not Detected (Not Detect); Streptococcus by PCR Not Detected (Not Detect); Streptococcus pneumoniae PCR Not Detected (Not Detect); Streptococcus pyogenes (A) PCR Not Detected (Not Detect)
[2020-06-30] MEDS: carvediloL 6.25 MG TABLET PO SCH ×2 (08:58→19:19)
[2020-06-30] MEDS: Apixaban 2.5 MG TABLET PO SCH ×2 (08:59→22:36)
[2020-06-30] MEDS: Aspirin 81 MG TAB.CHEW PO SCH (08:59)
[2020-06-30] MEDS: Cholecalciferol (D-3) 1,000 UNIT (25MCG) TABLET PO SCH (08:59)
[2020-06-30] MEDS: Loratadine 10 MG TABLET PO SCH (08:59)
[2020-06-30] MEDS: lisinopriL 5 MG TABLET PO SCH (08:59)
[2020-06-30] MEDS: Tiotropium 18 MCG inhalation IH SCH (10:21)
[2020-06-30] MEDS: Budesonide/Formoterol 160/4.5 1 PUFF INH IH SCH ×2 (10:21→20:17)
[2020-06-30] MEDS: cefTRIAXone 2,000 MG in Water for inj. (sterile) 20 ML IVP SCH (15:35)
[2020-06-30] MEDS: Vancomycin 1,250 MG/262.5 ML IV.SOLN IVPB SCH (15:35)
[2020-06-30] MEDS: Gabapentin 300 MG CAPSULE PO SCH (22:35)
[2020-07-01 08:26] LABS: Hematocrit 26.5 % (35.3-44.9); Hemoglobin 8.3 g/dL (11.5-15.4); Mean Corpuscular HGB Conc 31.3 g/dL (31.6-35.5); Mean Corpuscular Hemoglobin 29.7 pg (28.0-33.3); Mean Platelet Volume 11.2 fL (9.4-12.4); Platelet Count 247 K/mcL (140-400); Red Blood Count 2.79 M/mcL (3.82-4.97); Red Cell Distribution Width 14.4 % (11.5-14.5); White Blood Count 9.7 K/mcL (4.3-11.1)
[2020-07-01 08:45] LABS: BUN/Creatinine Ratio 23 (6-26); Blood Urea Nitrogen 17 mg/dL (8-23); Calcium 8.4 mg/dL (8.6-10.3); Carbon Dioxide 25 mEq/L (23-29); Chloride 105 mEq/L (98-107); Glucose 102 mg/dL (70-105); Osmolality,Calculated 284 (280-300); Potassium 3.5 mEq/L (3.5-5.1); Sodium 136 mEq/L (136-145); eGFR For African Americans > 60 (> 60); eGFR For Non-African Americans > 60 (> 60)
[2020-07-01] MEDS: Loratadine 10 MG TABLET PO SCH (09:05)
[2020-07-01] MEDS: carvediloL 6.25 MG TABLET PO SCH ×2 (09:05→16:18)
[2020-07-01] MEDS: lisinopriL 5 MG TABLET PO SCH (09:05)
[2020-07-01] MEDS: Aspirin 81 MG TAB.CHEW PO SCH (09:05)
[2020-07-01] MEDS: Cholecalciferol (D-3) 1,000 UNIT (25MCG) TABLET PO SCH (09:05)
[2020-07-01] MEDS: Insulin LISPRO 300 UNITS/3 ML VIAL SQ SCH ×4 (09:06→21:59)
[2020-07-01] MEDS: Apixaban 2.5 MG TABLET PO SCH ×2 (09:06→22:08)
[2020-07-01] MEDS: Tiotropium 18 MCG inhalation IH SCH (10:14)
[2020-07-01] MEDS: Budesonide/Formoterol 160/4.5 1 PUFF INH IH SCH ×3 (10:14→21:46)
[2020-07-01] MEDS: cefTRIAXone 2,000 MG in Water for inj. (sterile) 20 ML IVP SCH (12:28)
[2020-07-01] MEDS: Vancomycin 1,250 MG/262.5 ML IV.SOLN IVPB SCH (15:32)
[2020-07-01] MEDS: Gabapentin 300 MG CAPSULE PO SCH (22:08)
[2020-07-02] MEDS: Tiotropium 18 MCG inhalation IH SCH (08:09)
[2020-07-02] MEDS: Budesonide/Formoterol 160/4.5 1 PUFF INH IH SCH ×2 (08:09→20:45)
[2020-07-02] MEDS: Apixaban 2.5 MG TABLET PO SCH ×2 (08:23→20:06)
[2020-07-02] MEDS: Aspirin 81 MG TAB.CHEW PO SCH (08:23)
[2020-07-02] MEDS: carvediloL 6.25 MG TABLET PO SCH ×2 (08:25→19:31)
[2020-07-02] MEDS: Cholecalciferol (D-3) 1,000 UNIT (25MCG) TABLET PO SCH (08:25)
[2020-07-02] MEDS: Loratadine 10 MG TABLET PO SCH (08:25)
[2020-07-02] MEDS: lisinopriL 5 MG TABLET PO SCH (08:25)
[2020-07-02] MEDS: Insulin LISPRO 300 UNITS/3 ML VIAL SQ SCH ×3 (10:02→17:37)
[2020-07-02] MEDS: cefTRIAXone 2,000 MG in Water for inj. (sterile) 20 ML IVP SCH (14:43)
[2020-07-02] MEDS: Vancomycin 1,250 MG/262.5 ML IV.SOLN IVPB SCH (14:44)
[2020-07-02] MEDS: Ipratropium/Albuterol Neb 3 ML IH PRN ×2 (14:46→20:47)
[2020-07-02 15:50] LABS: BUN/Creatinine Ratio 23 (6-26); Blood Urea Nitrogen 17 mg/dL (8-23); Calcium 8.8 mg/dL (8.6-10.3); Carbon Dioxide 26 mEq/L (23-29); Chloride 104 mEq/L (98-107); Glucose 100 mg/dL (70-105); Osmolality,Calculated 288 (280-300); Potassium 3.8 mEq/L (3.5-5.1); Sodium 138 mEq/L (136-145); eGFR For African Americans > 60 (> 60); eGFR For Non-African Americans > 60 (> 60)
[2020-07-02] MEDS: Gabapentin 300 MG CAPSULE PO SCH (20:06)
[2020-07-03] MEDS: Ipratropium/Albuterol Neb 3 ML IH PRN ×2 (04:42→10:11)
[2020-07-03] MEDS: Aspirin 81 MG TAB.CHEW PO SCH (09:06)
[2020-07-03] MEDS: carvediloL 6.25 MG TABLET PO SCH (09:06)
[2020-07-03] MEDS: lisinopriL 5 MG TABLET PO SCH (09:06)
[2020-07-03] MEDS: Apixaban 2.5 MG TABLET PO SCH (09:06)
[2020-07-03] MEDS: Loratadine 10 MG TABLET PO SCH (09:07)
[2020-07-03] MEDS: Cholecalciferol (D-3) 1,000 UNIT (25MCG) TABLET PO SCH (09:07)
[2020-07-03] MEDS: Budesonide/Formoterol 160/4.5 1 PUFF INH IH SCH (10:10)
[2020-07-03] MEDS: Tiotropium 18 MCG inhalation IH SCH (10:11)
[2020-07-03 11:05] VITALS: BP 137/71
== END 2020-07-03 16:51 | disposition other institution (70) ==
LOC: 3ANU 10:45 → EMEROOARM 10:45 → 3ANU 14:48
PROVIDERS: ADMIT Internal Medicine; ATTEND Internal Medicine

== ENCOUNTER 2021-04-05 08:57 | Inpatient (IN) ==
[2021-04-05] MEDS ORDERED: Acetaminophen 325 MG TABLET PO ONE (10:01)
[2021-04-05] MEDS ORDERED: predniSONE 20 MG TABLET PO ONE (10:01)
[2021-04-05 10:18] LABS: Basophils % 0.3 %; Eosinophils # 0.1 K/mcL (0.0-0.6); Eosinophils % 0.8 %; Hematocrit 32.1 % (35.3-44.9); Hemoglobin 10.2 g/dL (11.5-15.4); Immature Granulocytes % 0.3 % (0-4); Lymphocytes % 7.3 %; Mean Corpuscular HGB Conc 31.8 g/dL (31.6-35.5); Mean Corpuscular Hemoglobin 29.5 pg (28.0-33.3); Mean Corpuscular Volume 92.8 fL (83.0-100.0); Monocytes # 0.9 K/mcL (0.0-1.3); Monocytes % 6.7 %; Neutrophils # 11.4 K/mcL (1.6-8.9); Platelet Count 270 K/mcL (140-400); Red Blood Count 3.46 M/mcL (3.82-4.97); Red Cell Distribution Width 14.6 % (11.5-14.5); Segmented Neutrophils % 84.6 %; White Blood Count 13.5 K/mcL (4.3-11.1)
[2021-04-05 10:41] LABS: BUN/Creatinine Ratio 19 (6-26); Blood Urea Nitrogen 16 mg/dL (8-23); Calcium 9.3 mg/dL (8.6-10.3); Carbon Dioxide 27 mEq/L (23-29); Chloride 105 mEq/L (98-107); Glucose 107 mg/dL (70-105); Osmolality,Calculated 292 (280-300); Potassium 3.7 mEq/L (3.5-5.1); Sodium 140 mEq/L (136-145); eGFR For African Americans > 60 (> 60); eGFR For Non-African Americans > 60 (> 60)
[2021-04-05 10:50] LABS: Troponin I 0.13 ng/mL (< 0.04)
[2021-04-05 10:54] LABS: Influenza A PCR Negative (Negative); Influenza B PCR Negative (Negative); Resp. Syncytial Virus PCR Negative (Negative); SARS-CoV-2 by PCR (In House) Negative (Negative)
[2021-04-05] MEDS ORDERED: Isovue-370 500 ML BOTTLE IVP ONE (10:54)
[2021-04-05] MEDS ORDERED: cefTRIAXone 1,000 MG in Water for inj. (sterile) 10 ML IVP ONE (11:03)
[2021-04-05] MEDS ORDERED: Azithromycin 500 MG in 0.9 % Sodium Chloride 250 ML IVPB ONE (11:03)
[2021-04-05] MEDS ORDERED: Naloxone 0.4 MG/ML INJ IVP PRN (12:36)
[2021-04-05] MEDS ORDERED: Ondansetron 4 MG/2 ML VIAL IVP PRN (12:36)
[2021-04-05] MEDS ORDERED: Dextrose Gel 15 GM/37.5 ML TUBE PO PRN ×2 (12:38)
[2021-04-05] MEDS ORDERED: *HR* Dextrose 50 % in Water (Vial) 50 ML VIAL IVP PRN (12:38)
[2021-04-05] MEDS ORDERED: D5% in Water 1,000 ML IVC PRN (12:38)
[2021-04-05 14:26] LABS: Adenovirus Not Detected (Not Detect); Bordetella Pertussis Not Detected (Not Detect); Chlamydophila pneumoniae Not Detected (Not Detect); Coronavirus 229E Not Detected (Not Detect); Coronavirus HKU1 Not Detected (Not Detect); Coronavirus NL63 Not Detected (Not Detect); Coronavirus OC43 Not Detected (Not Detect); Human Metapneumovirus Not Detected (Not Detect); Human Rhinovirus/Enterovirus Not Detected (Not Detect); Influenza A Subtype 2009 H1 Not Detected (Not Detect); Influenza B Not Detected (Not Detect); Mycoplasma pneumoniae Not Detected (Not Detect); Parainfluenza Virus 1 Not Detected (Not Detect); Parainfluenza Virus 2 Not Detected (Not Detect); Parainfluenza Virus 3 Not Detected (Not Detect); Parainfluenza Virus 4 Not Detected (Not Detect); Respiratory Syncytial Virus Not Detected (Not Detect); SARS-CoV-2 Not Detected (Not Detect)
[2021-04-05] MEDS ORDERED: Aspirin 325 MG TABLET PO ONE (14:48)
[2021-04-05] MEDS ORDERED: Perflutren Lipid Microsphere 1.3 ML in 0.9 % Sodium Chloride 8.7 ML IVP PRN (14:49)
[2021-04-05] MEDS ORDERED: 0.9 % Sodium Chloride 1,000 ML IVC SCH (15:00)
[2021-04-05 15:43] LABS: Estimated Average Glucose 140 mg/dl; Hemoglobin A1C 6.5 %
[2021-04-05] MEDS: Ipratropium/Albuterol Neb 3 ML IH SCH ×2 (16:36→22:05)
[2021-04-05] MEDS: Insulin LISPRO 300 UNITS/3 ML VIAL SUBQ SCH ×2 (17:55→21:07)
[2021-04-05] MEDS: *HR* Heparin 5,000 UNIT/ML VIAL SQ SCH (17:56)
[2021-04-05] MEDS: MethylPREDNISolone 40 MG/ML VIAL IVP SCH (17:56)
[2021-04-05] MEDS: Budesonide/Formoterol 160/4.5 1 PUFF INH IH SCH (22:06)
[2021-04-06 01:09] LABS: Basophils % 0.1 %; Hematocrit 29.2 % (35.3-44.9); Hemoglobin 9.4 g/dL (11.5-15.4); Immature Granulocytes % 1.1 % (0-4); Lymphocytes # 0.9 K/mcL (0.6-4.6); Lymphocytes % 4.7 %; Mean Corpuscular HGB Conc 32.2 g/dL (31.6-35.5); Mean Corpuscular Hemoglobin 29.7 pg (28.0-33.3); Mean Corpuscular Volume 92.1 fL (83.0-100.0); Mean Platelet Volume 9.3 fL (9.4-12.4); Monocytes # 0.5 K/mcL (0.0-1.3); Monocytes % 2.5 %; Neutrophils # 17.3 K/mcL (1.6-8.9); Platelet Count 243 K/mcL (140-400); Red Blood Count 3.17 M/mcL (3.82-4.97); Red Cell Distribution Width 14.5 % (11.5-14.5); Segmented Neutrophils % 91.6 %; White Blood Count 18.8 K/mcL (4.3-11.1)
[2021-04-06 01:29] LABS: BUN/Creatinine Ratio 20 (6-26); Blood Urea Nitrogen 16 mg/dL (8-23); Calcium 8.9 mg/dL (8.6-10.3); Carbon Dioxide 23 mEq/L (23-29); Chloride 104 mEq/L (98-107); Chol/HDL Ratio 1.8 (0-4.9); Glucose 162 mg/dL (70-105); Magnesium 1.2 mg/dL (1.6-2.6); Osmolality,Calculated 289 (280-300); Phosphorous 2.9 mg/dL (2.7-4.5); Potassium 3.7 mEq/L (3.5-5.1); Sodium 137 mEq/L (136-145); eGFR For African Americans > 60 (> 60); eGFR For Non-African Americans > 60 (> 60)
[2021-04-06] MEDS: Acetaminophen 325 MG TABLET PO PRN ×2 (02:22→20:28)
[2021-04-06] MEDS: Ipratropium/Albuterol Neb 3 ML IH SCH ×4 (04:21→22:30)
[2021-04-06] MEDS: *HR* Heparin 5,000 UNIT/ML VIAL SQ SCH (05:51)
[2021-04-06] MEDS: MethylPREDNISolone 40 MG/ML VIAL IVP SCH ×2 (06:03→17:19)
[2021-04-06] MEDS ORDERED: predniSONE 20 MG TABLET PO SCH (09:00)
[2021-04-06] MEDS: Insulin LISPRO 300 UNITS/3 ML VIAL SUBQ SCH ×4 (09:22→20:31)
[2021-04-06] MEDS: Aspirin 81 MG TAB.CHEW PO SCH (09:23)
[2021-04-06] MEDS: Budesonide/Formoterol 160/4.5 1 PUFF INH IH SCH ×2 (11:11→22:30)
[2021-04-06] MEDS: cefTRIAXone 2,000 MG in Water for inj. (sterile) 10 ML IVP SCH (12:25)
[2021-04-06] MEDS: Azithromycin 500 MG in 0.9 % Sodium Chloride 250 ML IVPB SCH (14:07)
[2021-04-06] MEDS: Gabapentin 400 MG CAPSULE PO SCH (20:28)
[2021-04-06] MEDS: Apixaban 2.5 MG TABLET PO SCH (20:28)
[2021-04-07] MEDS: Ipratropium/Albuterol Neb 3 ML IH SCH ×4 (03:32→22:15)
[2021-04-07] MEDS: MethylPREDNISolone 40 MG/ML VIAL IVP SCH ×2 (06:34→16:18)
[2021-04-07 07:38] LABS: Hematocrit 30.9 % (35.3-44.9); Hemoglobin 9.8 g/dL (11.5-15.4); Mean Corpuscular HGB Conc 31.7 g/dL (31.6-35.5); Mean Corpuscular Hemoglobin 29.5 pg (28.0-33.3); Mean Corpuscular Volume 93.1 fL (83.0-100.0); Mean Platelet Volume 9.6 fL (9.4-12.4); Platelet Count 272 K/mcL (140-400); Red Blood Count 3.32 M/mcL (3.82-4.97); Red Cell Distribution Width 14.6 % (11.5-14.5); White Blood Count 15.5 K/mcL (4.3-11.1)
[2021-04-07 08:02] LABS: BUN/Creatinine Ratio 26 (6-26); Blood Urea Nitrogen 22 mg/dL (8-23); Calcium 9.3 mg/dL (8.6-10.3); Carbon Dioxide 25 mEq/L (23-29); Chloride 106 mEq/L (98-107); Glucose 114 mg/dL (70-105); Osmolality,Calculated 294 (280-300); Sodium 140 mEq/L (136-145); eGFR For African Americans > 60 (> 60); eGFR For Non-African Americans > 60 (> 60)
[2021-04-07] MEDS: Budesonide/Formoterol 160/4.5 1 PUFF INH IH SCH ×2 (10:41→22:15)
[2021-04-07] MEDS: Insulin LISPRO 300 UNITS/3 ML VIAL SUBQ SCH ×4 (10:44→21:00)
[2021-04-07] MEDS: Loratadine 10 MG TABLET PO SCH (10:45)
[2021-04-07] MEDS: Aspirin 81 MG TAB.CHEW PO SCH (10:45)
[2021-04-07] MEDS: Apixaban 2.5 MG TABLET PO SCH ×2 (10:46→20:31)
[2021-04-07] MEDS: Lisinopril-HCTZ 20-12.5mg TABLET PO SCH (10:47)
[2021-04-07] MEDS: Acetaminophen 325 MG TABLET PO PRN ×2 (10:54→20:40)
[2021-04-07] MEDS: cefTRIAXone 2,000 MG in Water for inj. (sterile) 10 ML IVP SCH (10:56)
[2021-04-07] MEDS: Azithromycin 500 MG in 0.9 % Sodium Chloride 250 ML IVPB SCH (11:06)
[2021-04-07 11:45] LABS: Adenovirus Not Detected (Not Detect); Bordetella Pertussis Not Detected (Not Detect); Chlamydophila pneumoniae Not Detected (Not Detect); Coronavirus 229E Not Detected (Not Detect); Coronavirus HKU1 Not Detected (Not Detect); Coronavirus NL63 Not Detected (Not Detect); Coronavirus OC43 Not Detected (Not Detect); Human Metapneumovirus Not Detected (Not Detect); Human Rhinovirus/Enterovirus Not Detected (Not Detect); Influenza A Subtype 2009 H1 Not Detected (Not Detect); Influenza B Not Detected (Not Detect); Mycoplasma pneumoniae Not Detected (Not Detect); Parainfluenza Virus 1 Not Detected (Not Detect); Parainfluenza Virus 2 Not Detected (Not Detect); Parainfluenza Virus 3 Not Detected (Not Detect); Parainfluenza Virus 4 Not Detected (Not Detect); Respiratory Syncytial Virus Not Detected (Not Detect); SARS-CoV-2 Not Detected (Not Detect)
[2021-04-07] MEDS ORDERED: *HR* Metoprolol 5 MG/5 ML VIAL IVP ONE (17:23)
[2021-04-07] MEDS ORDERED: 0.9 % Sodium Chloride 500 ML IVC ONE (18:14)
[2021-04-07] MEDS: Gabapentin 400 MG CAPSULE PO SCH (20:31)
[2021-04-08] MEDS: Ipratropium/Albuterol Neb 3 ML IH SCH ×2 (03:47→10:06)
[2021-04-08] MEDS: MethylPREDNISolone 40 MG/ML VIAL IVP SCH (05:42)
[2021-04-08 05:51] LABS: Hematocrit 29.8 % (35.3-44.9); Hemoglobin 9.5 g/dL (11.5-15.4); Mean Corpuscular HGB Conc 31.9 g/dL (31.6-35.5); Mean Corpuscular Hemoglobin 29.9 pg (28.0-33.3); Mean Corpuscular Volume 93.7 fL (83.0-100.0); Mean Platelet Volume 9.6 fL (9.4-12.4); Platelet Count 267 K/mcL (140-400); Red Blood Count 3.18 M/mcL (3.82-4.97); Red Cell Distribution Width 14.6 % (11.5-14.5); White Blood Count 10.5 K/mcL (4.3-11.1)
[2021-04-08 06:12] LABS: BUN/Creatinine Ratio 26 (6-26); Blood Urea Nitrogen 24 mg/dL (8-23); Calcium 9.2 mg/dL (8.6-10.3); Carbon Dioxide 26 mEq/L (23-29); Chloride 103 mEq/L (98-107); Glucose 119 mg/dL (70-105); Osmolality,Calculated 291 (280-300); Potassium 4.1 mEq/L (3.5-5.1); Sodium 138 mEq/L (136-145); eGFR For African Americans > 60 (> 60); eGFR For Non-African Americans 59 (> 60)
[2021-04-08] MEDS: Insulin LISPRO 300 UNITS/3 ML VIAL SUBQ SCH (07:45)
[2021-04-08] MEDS: Loratadine 10 MG TABLET PO SCH (08:33)
[2021-04-08] MEDS: Lisinopril-HCTZ 20-12.5mg TABLET PO SCH (08:33)
[2021-04-08] MEDS: Aspirin 81 MG TAB.CHEW PO SCH (08:33)
[2021-04-08] MEDS: Apixaban 2.5 MG TABLET PO SCH (08:33)
[2021-04-08] MEDS: Budesonide/Formoterol 160/4.5 1 PUFF INH IH SCH (10:06)
[2021-04-08 10:46] VITALS: BP 128/68; PULSE 120; TEMP 98.7; O2SAT 95
== END 2021-04-08 11:56 | disposition home or self-care (01) | DRG 871 ==
LOC: 3ANU 08:57 → EMEROOARM 08:57 → SUATTDRO 15:10 → 3ANU 16:05
PROVIDERS: ADMIT Internal Medicine; ATTEND Family Medicine

== ENCOUNTER 2021-06-21 09:22 | Observation (INO) ==
[2021-06-21] MEDS ORDERED: Nitroglycerin 1 INCH/GM PACKET TP ONE (09:26)
[2021-06-21] MEDS ORDERED: Aspirin 81 MG TAB.CHEW PO ONE (09:26)
[2021-06-21 09:50] LABS: Basophils % 0.3 %; Eosinophils # 0.3 K/mcL (0.0-0.6); Eosinophils % 2.1 %; Hematocrit 35.2 % (35.3-44.9); Hemoglobin 10.7 g/dL (11.5-15.4); Immature Granulocytes % 0.3 % (0-4); Lymphocytes # 1.7 K/mcL (0.6-4.6); Lymphocytes % 10.9 %; Mean Corpuscular HGB Conc 30.4 g/dL (31.6-35.5); Mean Corpuscular Hemoglobin 28.5 pg (28.0-33.3); Mean Corpuscular Volume 93.6 fL (83.0-100.0); Mean Platelet Volume 8.8 fL (9.4-12.4); Monocytes # 1.4 K/mcL (0.0-1.3); Monocytes % 8.9 %; Neutrophils # 11.8 K/mcL (1.6-8.9); Platelet Count 261 K/mcL (140-400); Red Blood Count 3.76 M/mcL (3.82-4.97); Red Cell Distribution Width 16.4 % (11.5-14.5); Segmented Neutrophils % 77.5 %; White Blood Count 15.2 K/mcL (4.3-11.1)
[2021-06-21 10:03] LABS: INR 1.4; Prothrombin Time 15.4 Seconds (9.4-12.1)
[2021-06-21 10:05] LABS: Activated Partial Thrombo Time 32.3 Seconds (26.0-36.0)
[2021-06-21 10:13] LABS: Calcium 9.5 mg/dL (8.6-10.3); Potassium 4.7 mEq/L (3.5-5.1)
[2021-06-21 10:19] LABS: Troponin I 0.06 ng/mL (< 0.04)
[2021-06-21] MEDS ORDERED: Melatonin 3 MG TABLET PO PRN (10:40)
[2021-06-21] MEDS ORDERED: Acetaminophen 325 MG TABLET PO PRN (10:40)
[2021-06-21] MEDS ORDERED: MOM Conc 10 ML UD.LIQ PO PRN (10:40)
[2021-06-21] MEDS ORDERED: Mag Hydrox/Al Hydrox/Simeth 30 ML UDC PO PRN (10:40)
[2021-06-21] MEDS ORDERED: Ondansetron 4 MG/2 ML VIAL IVP PRN (10:40)
[2021-06-21] MEDS ORDERED: Naloxone 0.4 MG/ML INJ IVP PRN (10:40)
[2021-06-21] MEDS: Azithromycin 500 MG in 0.9 % Sodium Chloride 250 ML IVPB SCH (13:34)
[2021-06-21 14:49] LABS: Influenza A PCR Negative (Negative); Influenza B PCR Negative (Negative); Resp. Syncytial Virus PCR Negative (Negative); SARS-CoV-2 by PCR (In House) Negative (Negative)
[2021-06-21 14:50] LABS: Bilirubin,Urine Negative (Negative); Blood,Urine Negative (Negative); Clarity,Urine Clear (Clear); Color,Urine Light-Yellow (Yellow); Glucose,Urine (UA) Normal (Normal); Ketones,Urine Negative (Negative); Leukocyte Esterase,Urine Trace (Negative); Nitrite,Urine Negative (Negative); Protein,Urine Negative (Neg-Trace); RBC,Urine 0-3 per hpf (0-3); Squamous Epithelial Cell,Urine Few per hpf (None-Few); Transitional Epi Cells,Urine Few per hpf (None-Few); Urobilinogen,Urine Normal (Normal); WBC,Urine 0-3 per hpf (0-3)
[2021-06-21] MEDS ORDERED: hydrOXYzine pamoate 25 MG CAPSULE PO PRN (15:25)
[2021-06-21] MEDS: Gabapentin 300 MG CAPSULE PO SCH ×2 (16:04→20:32)
[2021-06-21] MEDS ORDERED: Isovue-370 500 ML BOTTLE IVP ONE (19:20)
[2021-06-21] MEDS: Apixaban 2.5 MG TABLET PO SCH (20:31)
[2021-06-21] MEDS: 0.9 % Sodium Chloride 1,000 ML IVC SCH (20:32)
[2021-06-21] MEDS: Ipratropium/Albuterol Neb 3 ML IH PRN (20:40)
[2021-06-21] MEDS: Budesonide/Formoterol 160/4.5 1 PUFF INH IH SCH (20:40)
[2021-06-21] MEDS: UMECLIDINIUM BROMIDE 62.5 MCG IH SCH (20:44)
[2021-06-22 02:48] LABS: Hematocrit 29.9 % (35.3-44.9); Hemoglobin 9.4 g/dL (11.5-15.4); Mean Corpuscular HGB Conc 31.4 g/dL (31.6-35.5); Mean Corpuscular Hemoglobin 29.8 pg (28.0-33.3); Mean Corpuscular Volume 94.9 fL (83.0-100.0); Mean Platelet Volume 9.3 fL (9.4-12.4); Platelet Count 215 K/mcL (140-400); Red Blood Count 3.15 M/mcL (3.82-4.97); Red Cell Distribution Width 16.6 % (11.5-14.5); White Blood Count 13.4 K/mcL (4.3-11.1)
[2021-06-22 03:13] LABS: Calcium 8.9 mg/dL (8.6-10.3); Magnesium 1.3 mg/dL (1.6-2.6); Potassium 4.6 mEq/L (3.5-5.1)
[2021-06-22] MEDS: Budesonide/Formoterol 160/4.5 1 PUFF INH IH SCH ×2 (08:11→20:45)
[2021-06-22] MEDS ORDERED: *HR* Heparin 5,000 UNIT/ML VIAL IVP ONE (09:34)
[2021-06-22] MEDS: cefTRIAXone 1,000 MG in Water for inj. (sterile) 10 ML IVP SCH (09:34)
[2021-06-22] MEDS ORDERED: *HR* Heparin 5,000 UNIT/ML VIAL IVP PRN ×2 (09:34)
[2021-06-22] MEDS ORDERED: Heparin 25,000UNIT/250ML 1/2NS 25,000 UNIT/250 ML IV.SOLN IVC SCH ×2 (09:45)
[2021-06-22] MEDS ORDERED: Heparin 25,000 UNIT/250 ML 25,000 UNIT/250 ML IV.SOLN IVC SCH (10:15)
[2021-06-22] MEDS: Apixaban 2.5 MG TABLET PO SCH (10:17)
[2021-06-22 10:34] LABS: Hematocrit 31.4 % (35.3-44.9); Hemoglobin 9.5 g/dL (11.5-15.4); Mean Corpuscular HGB Conc 30.3 g/dL (31.6-35.5); Mean Corpuscular Hemoglobin 28.9 pg (28.0-33.3); Mean Corpuscular Volume 95.4 fL (83.0-100.0); Mean Platelet Volume 9.2 fL (9.4-12.4); Platelet Count 214 K/mcL (140-400); Red Blood Count 3.29 M/mcL (3.82-4.97); Red Cell Distribution Width 16.6 % (11.5-14.5); White Blood Count 11.6 K/mcL (4.3-11.1)
[2021-06-22 10:41] LABS: Heparin anti-factor XA UFH 0.71 IU/mL (0.30-0.70); INR 1.4; Prothrombin Time 15.2 Seconds (9.4-12.1)
[2021-06-22] MEDS: Lisinopril-HCTZ 20-12.5mg TABLET PO SCH (11:17)
[2021-06-22] MEDS: Metoprolol XL (24 HR) Succ 25 MG TAB.ER.24H PO SCH (11:17)
[2021-06-22] MEDS: Gabapentin 300 MG CAPSULE PO SCH ×3 (11:17→20:53)
[2021-06-22] MEDS: Azithromycin 500 MG in 0.9 % Sodium Chloride 250 ML IVPB SCH (11:43)
[2021-06-22] MEDS: predniSONE 20 MG TABLET PO SCH (17:00)
[2021-06-22] MEDS: 0.9 % Sodium Chloride 1,000 ML IVC SCH (17:03)
[2021-06-22] MEDS: Ipratropium/Albuterol Neb 3 ML IH PRN (20:45)
[2021-06-22] MEDS: Apixaban 5 MG TABLET PO SCH (20:54)
[2021-06-22] MEDS: UMECLIDINIUM BROMIDE 62.5 MCG IH SCH (20:55)
[2021-06-23 06:21] LABS: Hematocrit 29.4 % (35.3-44.9); Hemoglobin 8.9 g/dL (11.5-15.4); Mean Corpuscular HGB Conc 30.3 g/dL (31.6-35.5); Mean Corpuscular Hemoglobin 28.9 pg (28.0-33.3); Mean Corpuscular Volume 95.5 fL (83.0-100.0); Mean Platelet Volume 9.3 fL (9.4-12.4); Platelet Count 211 K/mcL (140-400); Red Blood Count 3.08 M/mcL (3.82-4.97); Red Cell Distribution Width 16.2 % (11.5-14.5); White Blood Count 12.7 K/mcL (4.3-11.1)
[2021-06-23 06:41] LABS: BUN/Creatinine Ratio 20 (6-26); Blood Urea Nitrogen 17 mg/dL (8-23); Calcium 8.9 mg/dL (8.6-10.3); Carbon Dioxide 27 mEq/L (23-29); Chloride 105 mEq/L (98-107); Glucose 153 mg/dL (70-105); Osmolality,Calculated 291 (280-300); Potassium 4.8 mEq/L (3.5-5.1); Sodium 138 mEq/L (136-145); eGFR For African Americans > 60 (> 60); eGFR For Non-African Americans > 60 (> 60)
[2021-06-23 07:22] VITALS: PULSE 76
[2021-06-23] MEDS: Budesonide/Formoterol 160/4.5 1 PUFF INH IH SCH (07:59)
[2021-06-23] MEDS ORDERED: Aspirin 81 MG TAB.CHEW PO SCH (09:00)
[2021-06-23] MEDS: Gabapentin 300 MG CAPSULE PO SCH (09:49)
[2021-06-23] MEDS: Metoprolol XL (24 HR) Succ 25 MG TAB.ER.24H PO SCH (09:50)
[2021-06-23] MEDS: Apixaban 5 MG TABLET PO SCH (09:50)
[2021-06-23] MEDS: predniSONE 20 MG TABLET PO SCH (09:50)
[2021-06-23] MEDS: Lisinopril-HCTZ 20-12.5mg TABLET PO SCH (09:51)
[2021-06-23] MEDS: cefTRIAXone 1,000 MG in Water for inj. (sterile) 10 ML IVP SCH (09:58)
[2021-06-23] MEDS ORDERED: levoFLOXacin 750 MG TABLET PO SCH (10:00)
[2021-06-23] MEDS: 0.9 % Sodium Chloride 1,000 ML IVC SCH (11:05)
[2021-06-23 11:16] VITALS: BP 113/60; TEMP 97.8; O2SAT 96
== END 2021-06-23 14:42 | disposition home or self-care (01) ==
LOC: 3BNU 09:22 → EMEROOARM 09:22 → SUATTDRO 10:55 → 3BNU 11:50
PROVIDERS: ADMIT Internal Medicine; ATTEND Registered Nurse

== ENCOUNTER 2022-01-25 21:14 | Observation (INO) ==
[2022-01-25] MEDS ORDERED: cefTRIAXone 1,000 MG in 0.9 % Sodium Chloride 10 ML IVP ONE (21:45)
[2022-01-25] MEDS ORDERED: Azithromycin 500 MG in 0.9 % Sodium Chloride 250 ML IVPB ONE (21:45)
[2022-01-25] MEDS ORDERED: Ipratropium/Albuterol Neb 3 ML IH ONE (21:46)
[2022-01-25] MEDS ORDERED: methylPREDNISolone 125 MG/2 ML VIAL IVP ONE (21:47)
[2022-01-25] MEDS: 0.9 % Sodium Chloride 1,000 ML IVC SCH (22:09)
[2022-01-25 22:10] LABS: Basophils # 0.1 K/mcL (0.0-0.2); Basophils % 0.4 %; Eosinophils # 0.4 K/mcL (0.0-0.6); Eosinophils % 2.5 %; Hemoglobin 9.5 g/dL (11.5-15.4); Immature Granulocytes % 0.6 % (0-4); Lymphocytes # 1.4 K/mcL (0.6-4.6); Mean Corpuscular HGB Conc 30.6 g/dL (31.6-35.5); Mean Corpuscular Hemoglobin 26.5 pg (28.0-33.3); Mean Corpuscular Volume 86.4 fL (83.0-100.0); Mean Platelet Volume 8.7 fL (9.4-12.4); Monocytes # 1.2 K/mcL (0.0-1.3); Monocytes % 8.5 %; Neutrophils # 10.8 K/mcL (1.6-8.9); Platelet Count 394 K/mcL (140-400); Red Blood Count 3.59 M/mcL (3.82-4.97); Red Cell Distribution Width 16.1 % (11.5-14.5); White Blood Count 13.8 K/mcL (4.3-11.1)
[2022-01-25 22:11] LABS: VBG HCO3 24 mEq/L (21-27); VBG PCO2 39 mmHg (41-51); VBG PO2 38 mmHg (25-50)
[2022-01-25 22:23] LABS: INR 1.5; Prothrombin Time 16.2 Seconds (9.4-12.1)
[2022-01-25 22:25] LABS: Activated Partial Thrombo Time 39.8 Seconds (26.0-36.0)
[2022-01-25 22:40] LABS: Alanine Aminotransferase 10 Units/L (7-52); Albumin 4.6 g/dL (3.5-5.7); Albumin/Globulin Ratio 1.4 (1.1-2.2); Alkaline Phosphatase 54 Units/L (34-104); Aspartate Amino Transferase 21 Units/L (13-39); BUN/Creatinine Ratio 20 (6-26); Bilirubin,Direct 0.1 mg/dL (0.0-0.2); Bilirubin,Indirect 0.5 mg/dL (0.0-1.0); Bilirubin,Total 0.6 mg/dL (0.3-1.0); Blood Urea Nitrogen 19 mg/dL (8-23); Calcium 10.2 mg/dL (8.6-10.3); Carbon Dioxide 24 mEq/L (23-29); Chloride 102 mEq/L (98-107); Globulin 3.2 g/dL (2.4-3.5); Glucose 113 mg/dL (70-105); Lipase 28 Units/L (11-82); Magnesium 1.2 mg/dL (1.6-2.6); Osmolality,Calculated 289 (280-300); Phosphorous 2.5 mg/dL (2.7-4.5); Potassium 4.3 mEq/L (3.5-5.1); Sodium 138 mEq/L (136-145); Total Protein 7.8 g/dL (6.4-8.9); Troponin I < 0.03 ng/mL (< 0.04); eGFR For African Americans > 60 (> 60); eGFR For Non-African Americans 54 (> 60)
[2022-01-25 22:44] LABS: Bilirubin,Urine Negative (Negative); Blood,Urine Negative (Negative); Clarity,Urine Clear (Clear); Color,Urine Light-Yellow (Yellow); Glucose,Urine (UA) Normal (Normal); Ketones,Urine Trace mg/dL (Negative); Leukocyte Esterase,Urine Trace (Negative); Nitrite,Urine Negative (Negative); PH,Urine 6.5 pH Units (5.0-8.0); Protein,Urine Negative (Neg-Trace); RBC,Urine 0-3 per hpf (0-3); Specific Gravity,Urine 1.019 (1.010-1.025); Squamous Epithelial Cell,Urine Few per hpf (None-Few); Urobilinogen,Urine Normal (Normal); WBC,Urine 0-3 per hpf (0-3)
[2022-01-25 22:53] LABS: Influenza A PCR Negative (Negative); Influenza B PCR Negative (Negative); Resp. Syncytial Virus PCR Negative (Negative)
[2022-01-25 22:59] LABS: SARS-CoV-2 by PCR (In House) Negative (Negative)
[2022-01-26] MEDS ORDERED: Iopamidol - 370 500 ML MLS IVP ONE (00:24)
[2022-01-26] MEDS: 0.9 % Sodium Chloride 1,000 ML IVC SCH (01:42)
[2022-01-26] MEDS ORDERED: Ondansetron 4 MG/2 ML VIAL IVP PRN (03:43)
[2022-01-26] MEDS ORDERED: Naloxone 0.4 MG/ML INJ IVP PRN (03:43)
[2022-01-26] MEDS ORDERED: Acetaminophen 325 MG TABLET PO PRN (03:43)
[2022-01-26] MEDS ORDERED: 0.9 % Sodium Chloride 1,000 ML IVC SCH (03:45)
[2022-01-26] MEDS ORDERED: Magnesium Sulfate 1 GM/102 ML PIGGYBACK IVPB ONE (03:55)
[2022-01-26] MEDS: Ipratropium/Albuterol Neb 3 ML IH SCH ×6 (04:16→23:28)
[2022-01-26] MEDS: MethylPREDNISolone 40 MG/ML VIAL IVP SCH ×4 (05:24→23:20)
[2022-01-26 07:57] LABS: Hematocrit 26.9 % (35.3-44.9); Hemoglobin 8.2 g/dL (11.5-15.4); Mean Corpuscular HGB Conc 30.5 g/dL (31.6-35.5); Mean Corpuscular Hemoglobin 26.4 pg (28.0-33.3); Mean Corpuscular Volume 86.5 fL (83.0-100.0); Mean Platelet Volume 9.1 fL (9.4-12.4); Platelet Count 350 K/mcL (140-400); Red Blood Count 3.11 M/mcL (3.82-4.97); Red Cell Distribution Width 16.1 % (11.5-14.5); White Blood Count 14.1 K/mcL (4.3-11.1)
[2022-01-26 08:13] LABS: BUN/Creatinine Ratio 19 (6-26); Blood Urea Nitrogen 17 mg/dL (8-23); Calcium 8.7 mg/dL (8.6-10.3); Carbon Dioxide 21 mEq/L (23-29); Chloride 106 mEq/L (98-107); Glucose 194 mg/dL (70-105); Osmolality,Calculated 293 (280-300); Potassium 3.9 mEq/L (3.5-5.1); Sodium 138 mEq/L (136-145); eGFR For African Americans > 60 (> 60); eGFR For Non-African Americans 59 (> 60)
[2022-01-26] MEDS ORDERED: Ipratropium/Albuterol Neb 3 ML IH PRN (14:53)
[2022-01-26] MEDS: Lisinopril-HCTZ 20-12.5mg TABLET PO SCH (16:26)
[2022-01-26] MEDS: Gabapentin 300 MG CAPSULE PO SCH ×2 (16:26→20:36)
[2022-01-26] MEDS: Aspirin 81 MG TAB.CHEW PO SCH (16:34)
[2022-01-26] MEDS: UMECLIDINIUM BROMIDE 62.5 MCG IH SCH (20:27)
[2022-01-26] MEDS: Apixaban 2.5 MG TABLET PO SCH (20:36)
[2022-01-26] MEDS: Azithromycin 500 MG in 0.9 % Sodium Chloride 250 ML IVPB SCH (20:37)
[2022-01-26] MEDS ORDERED: cefTRIAXone 1,000 MG in 0.9 % Sodium Chloride 10 ML IVPB SCH (21:00)
[2022-01-27] MEDS: Ipratropium/Albuterol Neb 3 ML IH SCH ×6 (03:06→23:43)
[2022-01-27] MEDS: MethylPREDNISolone 40 MG/ML VIAL IVP SCH ×3 (05:48→15:43)
[2022-01-27 06:04] LABS: Basophils % 0.1 %; Hematocrit 23.7 % (35.3-44.9); Hemoglobin 7.4 g/dL (11.5-15.4); Immature Granulocytes % 0.9 % (0-4); Lymphocytes # 0.8 K/mcL (0.6-4.6); Mean Corpuscular HGB Conc 31.2 g/dL (31.6-35.5); Mean Corpuscular Hemoglobin 27.1 pg (28.0-33.3); Mean Corpuscular Volume 86.8 fL (83.0-100.0); Mean Platelet Volume 9.3 fL (9.4-12.4); Monocytes # 0.6 K/mcL (0.0-1.3); Monocytes % 3.7 %; Neutrophils # 13.7 K/mcL (1.6-8.9); Platelet Count 310 K/mcL (140-400); Red Blood Count 2.73 M/mcL (3.82-4.97); Red Cell Distribution Width 16.4 % (11.5-14.5); Segmented Neutrophils % 90.3 %; White Blood Count 15.2 K/mcL (4.3-11.1)
[2022-01-27 06:32] LABS: Alanine Aminotransferase 9 Units/L (7-52); Albumin 3.8 g/dL (3.5-5.7); Albumin/Globulin Ratio 1.6 (1.1-2.2); Alkaline Phosphatase 41 Units/L (34-104); Aspartate Amino Transferase 20 Units/L (13-39); BUN/Creatinine Ratio 20 (6-26); Bilirubin,Total 0.3 mg/dL (0.3-1.0); Blood Urea Nitrogen 16 mg/dL (8-23); Carbon Dioxide 27 mEq/L (23-29); Chloride 105 mEq/L (98-107); Globulin 2.4 g/dL (2.4-3.5); Glucose 177 mg/dL (70-105); Osmolality,Calculated 294 (280-300); Potassium 3.6 mEq/L (3.5-5.1); Sodium 139 mEq/L (136-145); Total Protein 6.2 g/dL (6.4-8.9); eGFR For African Americans > 60 (> 60); eGFR For Non-African Americans > 60 (> 60)
[2022-01-27] MEDS: Loratadine 10 MG TABLET PO SCH (09:12)
[2022-01-27] MEDS: Lisinopril-HCTZ 20-12.5mg TABLET PO SCH (09:12)
[2022-01-27] MEDS: Metoprolol XL (24 HR) Succ 25 MG TAB.ER.24H PO SCH (09:12)
[2022-01-27] MEDS: Aspirin 81 MG TAB.CHEW PO SCH (09:13)
[2022-01-27] MEDS: Gabapentin 300 MG CAPSULE PO SCH ×3 (09:13→21:59)
[2022-01-27] MEDS: Apixaban 2.5 MG TABLET PO SCH ×2 (09:13→21:59)
[2022-01-27] MEDS: Multivit/Ca/Min/Fe/FA 1 TAB TABLET PO SCH (18:02)
[2022-01-27] MEDS: Budesonide/Formoterol 160/4.5 1 PUFF INH IH SCH (19:33)
[2022-01-27] MEDS ORDERED: Doxycycline 100 MG CAPSULE PO SCH (21:00)
[2022-01-27] MEDS: Azithromycin 500 MG in 0.9 % Sodium Chloride 250 ML IVPB SCH (22:00)
[2022-01-27] MEDS: UMECLIDINIUM BROMIDE 62.5 MCG IH SCH (22:01)
[2022-01-28] MEDS: MethylPREDNISolone 40 MG/ML VIAL IVP SCH ×2 (00:56→06:10)
[2022-01-28] MEDS: Ipratropium/Albuterol Neb 3 ML IH SCH ×4 (03:48→15:30)
[2022-01-28 06:38] LABS: Hematocrit 24.6 % (35.3-44.9); Hemoglobin 7.6 g/dL (11.5-15.4); Mean Corpuscular HGB Conc 30.9 g/dL (31.6-35.5); Mean Corpuscular Hemoglobin 26.9 pg (28.0-33.3); Mean Corpuscular Volume 86.9 fL (83.0-100.0); Mean Platelet Volume 9.2 fL (9.4-12.4); Platelet Count 313 K/mcL (140-400); Red Blood Count 2.83 M/mcL (3.82-4.97); Red Cell Distribution Width 16.4 % (11.5-14.5); White Blood Count 15.9 K/mcL (4.3-11.1)
[2022-01-28 06:57] LABS: BUN/Creatinine Ratio 21 (6-26); Blood Urea Nitrogen 17 mg/dL (8-23); Carbon Dioxide 28 mEq/L (23-29); Chloride 105 mEq/L (98-107); Glucose 145 mg/dL (70-105); Osmolality,Calculated 292 (280-300); Potassium 3.5 mEq/L (3.5-5.1); Sodium 139 mEq/L (136-145); eGFR For African Americans > 60 (> 60); eGFR For Non-African Americans > 60 (> 60)
[2022-01-28] MEDS: Budesonide/Formoterol 160/4.5 1 PUFF INH IH SCH (07:15)
[2022-01-28] MEDS: Multivit/Ca/Min/Fe/FA 1 TAB TABLET PO SCH (08:48)
[2022-01-28] MEDS: Apixaban 2.5 MG TABLET PO SCH (08:48)
[2022-01-28] MEDS: Aspirin 81 MG TAB.CHEW PO SCH (08:48)
[2022-01-28] MEDS: Metoprolol XL (24 HR) Succ 25 MG TAB.ER.24H PO SCH (08:48)
[2022-01-28] MEDS: Loratadine 10 MG TABLET PO SCH (08:48)
[2022-01-28] MEDS: Lisinopril-HCTZ 20-12.5mg TABLET PO SCH (08:48)
[2022-01-28] MEDS: Gabapentin 300 MG CAPSULE PO SCH (08:48)
[2022-01-28] MEDS ORDERED: cefTRIAXone 1,000 MG in 0.9 % Sodium Chloride Mini Bag 100 ML IVPB SCH (09:00)
[2022-01-28 14:45] VITALS: BP 153/77; PULSE 86; TEMP 98.8; O2SAT 98
[2022-01-28] MEDS ORDERED: MethylPREDNISolone 40 MG/ML VIAL IVP SCH (18:00)
== END 2022-01-28 16:35 | disposition home or self-care (01) ==
LOC: 3BNU 21:14 → EMEROOARM 21:14 → SUATTDRO 01-26 03:12 → 3BNU 01-26 03:38
PROVIDERS: ADMIT Internal Medicine; ATTEND Internal Medicine